=== PATIENT | female | born 1945 | race Caucasian/White ===

== ENCOUNTER 2017-11-22 20:03 | Inpatient (IN) | payer MEDICARE, OTHER ==
[2017-11-22] MEDS ORDERED: SODIUM CHLORIDE 0.9% FLUSH 10 ML FLUSH IV FLUSH (20:45)
[2017-11-22] MEDS: SODIUM CHLOR 0.9% 1000 ML INJ 1,000 ML IV (20:48)
[2017-11-22] MEDS: MORPHINE SULFATE 8 MG/ML INJ IV PUSH (20:48)
[2017-11-22] MEDS: ONDANSETRON ODT 4 MG TAB PO (20:48)
[2017-11-22 21:20] LABS: AUTOMATED NEUTROPHIL # 6.3 TH/MM3 (1.8-7.7); BASOPHIL % 0.4 % (0.0-2.0); EOSINOPHIL % 0.1 % (0.0-4.0); HEMATOCRIT 41.5 % (35.0-46.0); HEMO FLAGS DIFF FINAL; LYMPH % 11.2 % (9.0-44.0); LYMPHOCYTE # 0.8 TH/MM3 (1.0-4.8); MEAN CELL VOLUME 94.2 FL (80.0-100.0); MEAN CORPUSCULAR HEMOGLOBIN 31.9 PG (27.0-34.0); MEAN CORPUSCULAR HGB CONC 33.8 % (32.0-36.0); MEAN PLATELET VOLUME 7.5 FL (7.0-11.0); MONO % 3.1 % (0.0-8.0); MONOCYTE # 0.2 TH/MM3 (0-0.9); NEUT % 85.2 % (16.0-70.0); PLATELET COUNT 234 TH/MM3 (150-450); RED BLOOD COUNT 4.41 MIL/MM3 (4.00-5.30); RED CELL DISTRIBUTION WIDTH 12.9 % (11.6-17.2); WHITE BLOOD COUNT 7.3 TH/MM3 (4.0-11.0)
[2017-11-22 21:44] LABS: ALBUMIN 3.8 GM/DL (3.4-5.0); ANION GAP 10 MEQ/L (5-15); AST (GOT) 22 U/L (15-37); BICARBONATE 24.2 MEQ/L (21.0-32.0); BLOOD UREA NITROGEN 13 MG/DL (7-18); CALCIUM 8.9 MG/DL (8.5-10.1); CHLORIDE 103 MEQ/L (98-107); CREATININE 0.66 MG/DL (0.50-1.00); GLOMERULAR FILTRATION RATE 88 ML/MIN (>89); GLUCOSE,RANDOM 107 MG/DL (74-106); LIPASE 289 U/L (73-393); POTASSIUM 3.8 MEQ/L (3.5-5.1); SODIUM (NA) 137 MEQ/L (136-145)
[2017-11-22 21:45] LABS: ALT (GPT) 20 U/L (10-53)
[2017-11-22 21:47] LABS: ALKALINE PHOSPHATASE 80 U/L (45-117); TOTAL BILIRUBIN ADULT 0.5 MG/DL (0.2-1.0); TOTAL PROTEIN 7.8 GM/DL (6.4-8.2)
[2017-11-22] MEDS: KETOROLAC TROMETHAMINE 30 MG/ML (IVP) VIAL IV PUSH (21:50)
[2017-11-22 22:14] LABS: BILIRUBIN, URINE NEG (NEG); BLOOD, URINE NEG (NEG); GLUCOSE,URINE NEG (NEG); KETONE, URINE 40 mg/dL (NEG); NITRITE,URINE NEG (NEG); PH, URINE 6.5 (5.0-8.5); URINE COLOR LIGHT-YELLOW (YELLW/STRAW); URINE LEUKOCYTE ESTERASE NEG (NEG)
[2017-11-22 22:18] LABS: COMMENT (UR) CULT NOT INDICATED; CULTURE IF INDICATED CULT NOT INDICATED
[2017-11-23] MEDS: KETOROLAC TROMETHAMINE 30 MG/ML (IVP) VIAL IV PUSH (01:57)
[2017-11-23] MEDS ORDERED: MORPHINE SULFATE 4 MG/ML INJ IV PUSH (03:30)
[2017-11-23] MEDS ORDERED: ACETAMINOPHEN/HYDROcodone 325 MG/5 MG TAB PO (03:30)
[2017-11-23] MEDS: LACTATED RINGER'S 1000 ML INJ 1,000 ML IV ×2 (04:04→13:30)
[2017-11-23] MEDS ORDERED: ONDANSETRON ODT 4 MG TAB PO (09:30)
== END 2017-11-23 18:00 | disposition home or self-care (01) | DRG 761 ==
LOC: NEDA 11-23 01:28 → N06A 11-23 02:03 → NEPC 20:03
DX: N83.201 Unspecified ovarian cyst, right side (principal); E78.5 Hyperlipidemia, unspecified; E78.00 Pure hypercholesterolemia, unspecified
CPT/HCPCS: 71045; 74176; 76830; 76856; 80053; 81001; 83690; 85025; 93005; 96361; 96374; 96375; 99291-25

== ENCOUNTER 2017-12-13 06:25 | Inpatient (IN) | payer MEDICARE ==
[~2017-12-13] VITALS: Ht 152.4 cm; Wt 57.5 kg
[~2017-12-13 06:25] MED LIST: ATOR10TA15 PO; ONDA4TAB7 PO; TRAM50 PO
[2017-12-13] MEDS ORDERED: POVIDONE IODINE 5% (ANTISEPSIS KIT) 4 APPLICATIONS EACH NARE PRN (07:00)
[2017-12-13] MEDS ORDERED: METOPROLOL TARTRATE 25 MG TAB PO PRN (07:00)
[2017-12-13] MEDS ORDERED: CHLORHEXIDINE GLUCONATE 2 % 1 PACK (2 CLOTHS) TOPICAL PRN (07:00)
[2017-12-13] MEDS ORDERED: LACTATED RINGER'S 1000 ML IV PRN (07:00)
[2017-12-13] MEDS ORDERED: SODIUM CHLORID 0.9% 500 ML IV PRN (07:00)
[2017-12-13] MEDS ORDERED: SUGAMMADEX SODIUM 200 MG/2 ML VIAL IV PUSH ONE (07:12)
[2017-12-13] MEDS ORDERED: ACETAMINOPHEN 1000 MG/100 ML 100 ML IV ONE (07:13)
[2017-12-13] MEDS ORDERED: ceFAZolin 2 GM/DEX PREMIX 50 ML IV SCH (07:45)
[2017-12-13] MEDS ORDERED: HEPARIN SODIUM - SQ 10,000 UNITS/ML VIAL SQ SCH (07:45)
[2017-12-13] MEDS ORDERED: LIDOCAINE 1%/EPINEPHrine 1:100,000 SOLN 30 ML VIAL ONE (07:58)
[2017-12-13] MEDS ORDERED: LIDOCAINE HCL 1% PF 5 ML SYRINGE OTHER ONE (12:00)
[2017-12-13] MEDS ORDERED: STERILE WATER FOR INJECTION 20 ML VIAL IV ONE (12:00)
[2017-12-13] MEDS ORDERED: ROCURONIUM INJ 50 MG/5 ML SYRINGE IV PUSH ONE (12:00)
[2017-12-13] MEDS ORDERED: ONDANSETRON HCL 4 MG/2 ML VIAL IV PUSH ONE (12:00)
[2017-12-13] MEDS ORDERED: ceFAZolin INJ 1,000 MG VIAL IV ONE ×2 (12:00→14:03)
[2017-12-13] MEDS ORDERED: ePHEDrine/NS 25 MG/5 ML SYRINGE IV ONE (12:00)
[2017-12-13] MEDS ORDERED: DEXAMETHASONE SOD PHOS 4 MG/ML VIAL IV ONE (12:00)
[2017-12-13] MEDS ORDERED: VECURONIUM BROMIDE 20 MG VIAL IV ONE (12:00)
[2017-12-13] MEDS ORDERED: PHENYLEPH/NS 1000 MCG/10 ML SYR IV ONE (12:00)
[2017-12-13] MEDS ORDERED: PROPOFOL 200 MG/20 ML AMP IV ONE (12:00)
[2017-12-13] MEDS ORDERED: metroNIDAZOLE 500 MG INJ 100 ML IV ONE (12:30)
[2017-12-13] MEDS ORDERED: NALOXONE HCL 0.4 MG/ML AMP IV PUSH PRN ×2 (15:00)
[2017-12-13] MEDS ORDERED: Post-op Orders (for Pharmacy) XX ONE (15:00)
[2017-12-13] MEDS ORDERED: diphenhydrAMINE HCL 50 MG/ML VIAL IV PUSH PRN (15:00)
[2017-12-13] MEDS ORDERED: SODIUM CHLORIDE 0.9% FLUSH 10 ML FLUSH IV FLUSH PRN (15:00)
[2017-12-13] MEDS ORDERED: ceFAZolin 1,000 MG/NS 100 ML IV ONE ×2 (15:00)
[2017-12-13] MEDS ORDERED: HYDROmorphone HCL PCA 6 MG/30 ML IV SCH (15:00)
--- NOTE | 2017-12-13 15:03 | PD.OP ---
cc: Soham Cuellar MD; Sarah King MD Operative Report Date of Surgery: Dec 13, 2017 Preoperative Diagnosis: (1) Mass of appendix (2) Ovarian torsion (3) Ovarian mass Postoperative Diagnosis: (1) Mass of appendix (2) Peritoneal metastases (3) Ovarian mass (4) Ovarian torsion Procedure: Robot assisted laparoscopic right colectomy Laparoscopic lysis of adhesions Anesthesia: General Surgeon: Soham Cuellar Entry Level Manager(s): Brook MARTIN Operation and Findings: EBL: 100 cc Indications: This is a 72-year-old female planned for hysterectomy including resection of large adnexal mass with gynecology oncology Dr. King. Proximally one year ago the patient had colonoscopy with apparent pus oozing from the appendiceal orifice. Discussion was had with the patient at that time for possible appendectomy but decision made for observation. There is now concerned that the adnexal mass could be related to her or possibly even arising from the appendix. A repeat CT scan of the abdomen and pelvis this month did show a shortened dilated fluid-filled appendix with some wall thickening. Dr. King requested that I evaluate the patient and consider appendectomy. After discussion with the patient in the office with plan to perform appendectomy at the time of the procedure we discussed possible need for right colectomy depending on findings. Operative findings: The patient had a large torsed right adnexal mass. There is a loop of terminal ileum adherent to the adnexal mass. There is a mass in the cecum and extended into the shortened stump of an appendix. The mass is concerning for malignancy. In addition the patient has peritoneal deposits concerning for metastatic disease. This operation was performed in concert with Dr. King. After Dr. King placed preliminary ports, I laparoscopically performed adhesio lysis of the loop of terminal ileum adherent to the adnexal mass. Dr. King then performed robot-assisted hysterectomy with resection of the torsed adnexal mass. I then completed right colectomy. Procedure in detail: The patient was taken to the operating room and placed in supine position. General endotracheal anesthesia was induced. The abdomen is prepped and draped in usual sterile fashion. The patient was positioned as per Dr. King for planned hysterectomy. He placed initial ports for entry please see his operative note for all details. After entry into the abdomen, we both evaluated anatomy. There is a large adnexal mass on the right apparently a torsed ovary. The appendix is not immediately visible but there is a concerning mass in the cecum and extending into what appears to be the stump of the appendix. There are peritoneal deposits and biopsy is obtained for frozen section. There is a loop of terminal ileum tightly adherent to the mass in the right adnexa. I performed sharp adhesio lysis to free this loop from the adnexa and the retroperitoneum. At this point we opted to proceed with robot- assisted surgery and Dr. King performed hysterectomy and resection of the adnexal mass. At the conclusion of his procedure, I returned and began right colectomy. The terminal ileum cecum and appendix were mobilized robotically using bipolar grasper and scissors with electrocautery. The ureter was identified and avoided. Because of the orientation of the robot ports the pelvis I was unable to complete the dissection robotically. We then changed to laparoscopic approach and placed a 5 mm port in the left midabdomen. The white line of Toldt of the right colon and hepatic flexure were then taken down carefully using the harmonic scalpel. The omentum was from the proximal transverse colon. The colon was carefully from the duodenum posteriorly. There was adequate mobilization of the right colon and proceeded to perform extracorporeal resection and anastomosis. A transverse incision was made in the right upper abdomen from the midline laterally. Dissection carried out through the subcutaneous tissue and rectus sheath with electrocautery and the abdomen entered. The right colon was brought up through the wound and there was no tension. The portion of the terminal ileum which had been involved in the adhesio lysis was included in the specimen. I transected the terminal ileum proximal to this point with a LANI 75 blue load stapler. The proximal transverse colon was transected with a LANI 75 blue load stapler. The mesentery was divided using the harmonic scalpel and electrocautery. The left branches of the middle colic vessel were divided with harmonic scalpel. The ileocolic pedicle was isolated and clamped and tied with 0 Vicryl suture. The specimen was then removed. A [id number] functional end-to-end anastomosis was performed between the terminal ileum and transverse colon. The corners of each portion of the bowel were removed and the stapler placed into the corners. The end enterotomy was closed with a TX 60 blue load. A 3-0 silk suture placed at the end of the staple line. There is no tension or hematoma on the anastomosis. The mesenteric defect closed with running 3-0 silk suture. The anastomosis allowed to return into the abdominal cavity. The fascia was closed with running #1 PDS in 2 layers. The wound was irrigated and skin staplers used to close the skin. Sterile dressing was applied. 12 mm port site was closed with 0 Vicryl suture. Skin closed with subcuticular 4-0 Monocryl and Dermabond. The patient tolerated procedure well was explained taken to PACU in stable condition. Sponge and instrument counts were correct. Soham Cuellar MD Dec 13, 2017 15:03
[2017-12-13] MEDS ORDERED: MIDAZOLAM HCL 2 MG/2 ML VIAL ONE (15:19)
[2017-12-13] MEDS ORDERED: MORPHINE SULFATE 4 MG/ML INJ ONE (15:19)
[2017-12-13] MEDS: KETOROLAC TROMETHAMINE 30 MG/ML (IVP) VIAL IV PUSH SCH ×2 (15:56→21:36)
[2017-12-13] MEDS ORDERED: ACETAMINOPHEN 1000 MG/100 ML 100 ML IV SCH (16:00)
[2017-12-13] MEDS ORDERED: DO NOT ADM ANY ANTICOAGULANT DRUGS PRN (16:00)
[2017-12-13] MEDS: LACTATED RINGER'S 1000 ML INJ 1,000 ML IV SCH (16:07)
[2017-12-13] MEDS: ONDANSETRON ODT 4 MG TAB PO PRN ×2 (16:22→18:11)
[2017-12-13 17:00] VITALS: BP 149/83; PULSE 89; RESP 16; TEMP 99; O2SAT 98
[2017-12-13] MEDS: ACETAMINOPHEN 1000 MG/100 ML 100 ML IV SCH (18:12)
[2017-12-13] MEDS: SODIUM CHLORIDE 0.9% FLUSH 10 ML FLUSH IV FLUSH SCH (21:00)
[2017-12-13] MEDS: ATORVASTATIN 10 MG TAB PO SCH (21:00)
[2017-12-13] MEDS ORDERED: METOCLOPRAMIDE HCL 10 MG/2 ML VIAL IV ONE (21:15)
[2017-12-13 21:36] VITALS: BP 111/65; PULSE 82; RESP 16; TEMP 98.2; O2SAT 93
[2017-12-13] MEDS: PCA - TOTAL MG DILAUDID DELIVERED PER SHIFT OTHER SCH (21:43)
[2017-12-13 22:31] VITALS: O2SAT 94
[2017-12-14] VITALS (8 sets, daily range): BP systolic 94–111; BP diastolic 55–68; PULSE 68–105; RESP 16–18; TEMP 98–98.7; O2SAT 94–99
[2017-12-14] MEDS: ACETAMINOPHEN 1000 MG/100 ML 100 ML IV SCH ×2 (00:09→06:06)
[2017-12-14] MEDS: LACTATED RINGER'S 1000 ML INJ 1,000 ML IV SCH ×3 (01:32→20:08)
[2017-12-14] MEDS: KETOROLAC TROMETHAMINE 30 MG/ML (IVP) VIAL IV PUSH SCH ×4 (04:29→22:02)
[2017-12-14 05:41] LABS: AUTOMATED NEUTROPHIL # 7.9 TH/MM3 (1.8-7.7); BASOPHIL % 0.2 % (0.0-2.0); HEMATOCRIT 32.7 % (35.0-46.0); HEMOGLOBIN 11.2 GM/DL (11.6-15.3); LYMPH % 8.2 % (9.0-44.0); LYMPHOCYTE # 0.8 TH/MM3 (1.0-4.8); MEAN CELL VOLUME 95.5 FL (80.0-100.0); MEAN CORPUSCULAR HEMOGLOBIN 32.7 PG (27.0-34.0); MEAN CORPUSCULAR HGB CONC 34.2 % (32.0-36.0); MEAN PLATELET VOLUME 7.3 FL (7.0-11.0); MONO % 9.5 % (0.0-8.0); MONOCYTE # 0.9 TH/MM3 (0-0.9); NEUT % 82.1 % (16.0-70.0); PLATELET COUNT 225 TH/MM3 (150-450); RED BLOOD COUNT 3.42 MIL/MM3 (4.00-5.30); RED CELL DISTRIBUTION WIDTH 12.3 % (11.6-17.2); WHITE BLOOD COUNT 9.6 TH/MM3 (4.0-11.0)
[2017-12-14 05:58] LABS: BICARBONATE 30.3 MEQ/L (21.0-32.0); CALCIUM 8.2 MG/DL (8.5-10.1); CREATININE 0.51 MG/DL (0.50-1.00)
[2017-12-14] MEDS: PCA - TOTAL MG DILAUDID DELIVERED PER SHIFT OTHER SCH (06:00)
--- NOTE | 2017-12-14 06:42 | HHI.PR ---
Subjective . c/o pain, fatigue, nausea (somewhat improved overnight) no sob, cp Objective . 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 pod#1 doing good in early post-op period findings, preliminary path reviewed, q&a, she understands CPM, increase spirometry, oob to chair today Sarah King MD Dec 14, 2017 06:42
[2017-12-14] MEDS: SODIUM CHLORIDE 0.9% FLUSH 10 ML FLUSH IV FLUSH SCH ×2 (09:03→20:09)
--- NOTE | 2017-12-14 10:12 | HHI.PR ---
Subjective Subjective Notes Had small solid food for breakfast. Sore and tired but no major complaints. Objective Vitals/I&O Vital Signs Date Time Temp Pulse Resp B/P (MAP) Pulse Ox O2 Delivery O2 Flow Rate FiO2 12/14/17 08:02 98.5 80 16 94/55 (68) 94 12/13/17 22:31 Nasal Cannula 2.00 Labs Laboratory Tests Test 12/14/17 04:17 White Blood Count 9.6 Red Blood Count 3.42 Hemoglobin 11.2 Hematocrit 32.7 Mean Corpuscular Volume 95.5 Mean Corpuscular Hemoglobin 32.7 Mean Corpuscular Hemoglobin Concent 34.2 Red Cell Distribution Width 12.3 Platelet Count 225 Mean Platelet Volume 7.3 Neutrophils (%) (Auto) 82.1 Lymphocytes (%) (Auto) 8.2 Monocytes (%) (Auto) 9.5 Eosinophils (%) (Auto) 0.0 Basophils (%) (Auto) 0.2 Neutrophils # (Auto) 7.9 Lymphocytes # (Auto) 0.8 Monocytes # (Auto) 0.9 Eosinophils # (Auto) 0.0 Basophils # (Auto) 0.0 CBC Comment DIFF FINAL Differential Comment Blood Urea Nitrogen 12 Creatinine 0.51 Random Glucose 139 Calcium Level 8.2 Sodium Level 140 Potassium Level 3.9 Chloride Level 103 Carbon Dioxide Level 30.3 Anion Gap 7 Estimat Glomerular Filtration Rate 118 Narrative Exam NAD Abd soft, moderate distention, bandage in place c/d/i A/P Assessment and Plan 72 yo F POD 1 Stable. Some nausea, improving. Pain controlled. D/c WASHERY BOSS. Encourage go slow with diet. OOB to chair. PoloSoham MD Dec 14, 2017 10:12
[2017-12-14] MEDS ORDERED: ACETAMINOPHEN/HYDROcodone 325 MG/5 MG TAB PO PRN (10:15)
[2017-12-14] MEDS ORDERED: MORPHINE SULFATE 4 MG/ML INJ IV PUSH PRN (11:15)
[2017-12-14] MEDS: ENOXAPARIN SODIUM 40 MG/0.4 ML SYRINGE SQ SCH (14:04)
[2017-12-14] MEDS: ATORVASTATIN 10 MG TAB PO SCH (19:42)
[2017-12-14] MEDS: ACETAMINOPHEN/HYDROcodone 325 MG/5 MG TAB PO PRN (20:03)
[2017-12-15] VITALS (7 sets, daily range): BP systolic 105–153; BP diastolic 66–91; PULSE 76–91; RESP 16–18; TEMP 97.8–98.6; O2SAT 93–100
[2017-12-15] MEDS: KETOROLAC TROMETHAMINE 30 MG/ML (IVP) VIAL IV PUSH SCH ×4 (04:17→21:26)
[2017-12-15] MEDS: SODIUM CHLORIDE 0.9% FLUSH 10 ML FLUSH IV FLUSH SCH ×2 (09:00→21:26)
[2017-12-15] MEDS: ACETAMINOPHEN/HYDROcodone 325 MG/5 MG TAB PO PRN ×4 (09:09→23:00)
[2017-12-15] MEDS: ENOXAPARIN SODIUM 40 MG/0.4 ML SYRINGE SQ SCH (13:27)
[2017-12-15] MEDS: LACTATED RINGER'S 1000 ML INJ 1,000 ML IV SCH (16:58)
--- NOTE | 2017-12-15 18:18 | HHI.PR ---
Subjective Subjective Notes She feels well. Has been tolerating regular mainly soft diet. No nausea, + flatus, had small liquid BM. Objective Vitals/I&O Vital Signs Date Time Temp Pulse Resp B/P (MAP) Pulse Ox O2 Delivery O2 Flow Rate FiO2 12/15/17 17:00 98.6 85 18 125/77 (93) 100 12/14/17 21:49 21 12/13/17 22:31 Nasal Cannula 2.00 Narrative Exam NAD Abd soft, mild distention, incision c/d/i A/P Assessment and Plan 72 yo F POD 2 Stable. Jaida diet, + bm. Plan d/c home tomorrow. Path will not be back until later in the week. Soham Cuellar MD Dec 15, 2017 18:18
[2017-12-15] MEDS: ATORVASTATIN 10 MG TAB PO SCH (21:00)
--- NOTE | 2017-12-15 23:49 | MP ---
cc: Sarah King MD,Soham Danielle,Jordan Barber,Byron Sanches MD DATE OF OPERATION: 12/13/2017 PREOPERATIVE DIAGNOSIS: Pelvic mass pain. POSTOPERATIVE DIAGNOSIS: Right ovarian mass with torsion, significant intraperitoneal adhesions. PROCEDURE PERFORMED: Robotic-assisted laparoscopic hysterectomy, bilateral salpingo-oophorectomy (with resection of approximately 14 cm torsed right ovarian mass), extensive lysis of adhesions. SURGEON: Sarah King MD PIECE PRESSER: Robin 1st physician assistant. ANESTHESIA: General endotracheal anesthesia. ESTIMATED BLOOD LOSS: 200 mL INDICATIONS FOR PROCEDURE: This is a 72-year-old female found on exam and imaging to have a complex pelvic mass. She had pelvic pain, was tachycardic. Imaging showed a mass deviated toward the right pelvis, but extended up near the pelvic brim, seemed contiguous with the region of the cecum and appendix such that it could not be clearly delineated separately on imaging. She was counseled regarding these findings. She was seen in consultation from a gynecologic oncology standpoint, as well as seeing Dr. Lauro Cuellar in general surgery, out of concern about possible appendiceal abnormality. She was in favor of moving forward with surgical evaluation and management, was seen again in the preoperative holding area the family members, where the findings were again reviewed. Questions were asked and answered. She expressed good understanding, agreed to move forward with surgery. FINDINGS: On entry into the peritoneal cavity, there were significant adhesions. The colonic mesentery was draped over the pelvic mass. The terminal ileum, cecum and appendix region were all densely adherent to surrounding structures. There were implants on the peritoneal cavity on both the visceral and parietal surfaces. Further dissection allowed confirmation that the mass in the pelvis was coming from the right ovary. It was torsed with a full 720-degree rotation on the gonadal vessels, with hemorrhagic and necrotic appearing changes grossly, with surrounding extensive adhesions circumferentially. The left tube and ovary appeared normal. The uterus itself grossly appeared normal. Frozen section from the peritoneal implant showed mucinous epithelial cells with some atypia, but it could not be delineated with certainty on frozen section analysis if the tissue were benign or malignant. 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 Due to the hemorrhage and necrosis, it was difficult to determine. Also, the definitive diagnosis, there was no overt malignancy on frozen section with final analysis forthcoming. STATEMENT OF COMPLEXITY, MODIFIER: The complexity of this case was significantly increased due to the extensive intraperitoneal adhesions. Significant amount of additional time and effort were needed to lyse adhesions for safe entry into the peritoneal cavity to restore normal anatomy and to accomplish surgical objectives. Modifier should be applied accordingly. DESCRIPTION OF PROCEDURE: She was taken to the operating room, placed in dorsal lithotomy position, after general endotracheal anesthesia was administered. A timeout was undertaken. She was identified by site recognition and hospital ID [email or web address] and the proposed procedure was reviewed and confirmed. She was carefully positioned in padded Keith stirrups. Her arms were padded and secured to the sides. She was further secured to the operating table with egg crate padding and tape in a cross chest, over the shoulder fashion. All sites noted to be properly aligned with no malalignments or pressure points. She was prepped and draped in usual sterile fashion, placed in the high lithotomy position. The cervix was grasped. The uterine cavity was sounded to approximately 8 cm and a standard VCare manipulator was inserted and secured in usual fashion. Woody catheter was placed in the bladder. She was returned to the low lithotomy position. Change of sterile gloves was undertaken. An orogastric tube was in the stomach on suction. With manual elevation of the abdominal wall and direct laparoscopic visualization, 5 mm cannula placed in the left upper quadrant, carbon dioxide gas was insufflated. An 8 mm cannula was placed in the right upper quadrant and then a 12 mm cannula was placed in the midline above the umbilicus, an 8 mm cannula placed in the left upper quadrant. The original 5 mm cannula exchanged for an 8 mm cannula, after some initial lysis of adhesions were carried out to free the abdominal wall from omental adhesions to gain safe entry. Dr. Lauro Cuellar, general surgery, scrubbed in and initiated lysis of adhesion, trying to mobilize the terminal ileum and cecum from dense attachments to help clarify the anatomy and to separate this region of the intestine from the pelvic organs. Please see his op note for description of this portion of the procedure. Biopsies were obtained from the peritoneal nodules. She was placed in Trendelenburg position, 3 Ray-Leonidas sponges were placed around the root of the small bowel mesentery and the robotic system was brought into the operative field and attached in the usual fashion. Monopolar scissors, fenestrated bipolar forceps and ProGrasp manipulators were placed in arms 1, 2 and 3 respectively and I took my place at the surgeon's console. The right round ligament was isolated, cauterized and transected. The anterior and posterior leaf of the broad ligament were opened. The right ureter was identified. The right infundibulopelvic ligament was isolated. Intervening peritoneum was opened and the infundibulopelvic ligament was dissected well above the pelvic brim and confirmed that it was the infundibulopelvic ligament and gonadal vessels that were torsed adjacent to the ovarian hilum. As the gonadal vessels were isolated above the pelvic brim, segments of 0 Vicryl suture were introduced. Instruments 1 and 3 exchanged for needle drivers and the infundibulopelvic ligament with gonadal vessels were tied securely x 3 with 0 Vicryl sutures and then the instrumentation was exchanged for original instrumentation, as the distal portion of the gonadal vessels were further cauterized and transected. The vesicouterine, peritoneum was dissected off the uterus and the uterine vessels were skeletonized as the right uteroovarian ligament were isolated, as the posterior peritoneum was opened to allow isolation of the right uteroovarian ligament, which was completely cauterized. Blunt and sharp dissection were then used circumferentially to further free the mesentery and colon from attachments to this right ovarian mass. Dissection was continued out laterally and posteriorly. There was capsular disruption and the mucinous fluid was drained from the mass. Further dissection was carried out circumferentially until all adhesions had been , such that it only remained attached to the uterus via the right uteroovarian ligament. There is now increased visibility due to lysis of adhesion and drainage of the mass. The right uterine vessels were skeletonized, cauterized and transected after the bladder flap was dissected below the level of the cervix and then the cardinal, paracervical and uterosacral ligaments were isolated, cauterized and transected in a stepwise fashion, thereby freeing the attachments along the right side of the uterus and cervix. Attention was directed to the left side, where the left round ligament was isolated, cauterized and transected. The colon was mobilized from its attachments to the left pelvic sidewall. Retroperitoneal dissection was carried out as the anterior and posterior leafs of the broad ligament were opened. The left ureter was identified. Left infundibulopelvic ligament was isolated. The intervening peritoneum was opened. The infundibulopelvic ligament was isolated to the level of the pelvic brim, where it was cauterized and transected. Additional cul-de-sac adhesions were taken down as the posterior peritoneum was opened along the left side of the uterus and cervix and the left vesicouterine peritoneum was dissected off the lower uterine segment and cervix. The left uterine vessels were skeletonized. The left uterine vessels were cauterized and transected as were the cardinal, paracervical and uterosacral ligaments, thereby freeing the attachments along the left side of the uterus and cervix. Circumferential colpotomy was performed, the cervix from the upper vagina. The specimen was withdrawn transvaginally which included uterus, cervix, tubes and ovaries (including the right ovarian mass) and a Pneumo-Occluder balloon was placed in the vagina to maintain pneumoperitoneum. Instruments 1 and 3 exchanged for needle drivers. As an 0 Vicryl suture was introduced, the vaginal cuff was closed starting at the left corner, full-thickness closure, incorporating the posterior peritoneum and uterosacral ligament, tied via instrument tie. The closure was held on countertraction as a running continuous full thickness closure was carried across the vaginal apex to the contralateral corner, where it was similarly fixed, secured and tied securely. The needle was cut and removed. There was a good margin between the vaginal cuff and the bladder edge. The bladder was inspected, was without defects. There was good peristalsis of ureters bilaterally. There was a plaque of tissue felt possibly tumor against the right pelvic sidewall, which was then removed with sharp dissection and this tissue was placed on a Ray-Leonidas sponge in the right pericolic gutter for later retrieval, to add to the previous biopsies labeled peritoneal implants. The pelvis was thoroughly irrigated. Small bleeders rendered hemostatic with bipolar cautery. All sites were hemostatic and the frozen section came back as showing no definitive malignancy, so it was felt that all gynecologic objectives for this case had been completed. The robotic system, before it was disengaged. Dr. Lauro Cuellar took his place at the surgeon's console and continued his dissection to the extent possible on the robotic console, at which point, the robotic instruments were removed. The robotic system was disengaged from the operative field and the approach was changed to standard laparoscopy. Each of the 3 Ray-Leonidas sponges that had been placed in the peritoneal cavity, they were removed individually through the 12 mm cannula. Each were inspected and noted to be removed in their entirety. Visual inspection confirmed no remaining foreign objects in the peritoneal cavity and counts were correct. From this point forward, the case was turned over to Dr. Lauro Cuellar to address the findings of a cecal and periappendiceal mass and to perform a right hemicolectomy and necessary dissection to accomplish those objectives. Please see his operative note for details of that procedure. MD MARIN Boyd/NEELIMA , 10:33 PM , 11:48 PM BASHIR
[2017-12-16] MEDS: LACTATED RINGER'S 1000 ML INJ 1,000 ML IV SCH (03:08)
[2017-12-16 04:27] VITALS: BP 129/80; PULSE 78; RESP 17; TEMP 98.5; O2SAT 94
[2017-12-16] MEDS: KETOROLAC TROMETHAMINE 30 MG/ML (IVP) VIAL IV PUSH SCH ×4 (04:28→22:28)
[2017-12-16] MEDS ORDERED: HYDR-3516 PO (06:58)
--- NOTE | 2017-12-16 07:48 | MD ---
cc: Sarah King MD, R John MD Cort[place],Byron Cuellar,Soham MALLOY DATE OF DISCHARGE: 12/16/2017 DATE OF ADMISSION: 12/13/2017. DATE OF DISCHARGE: 12/16/2017. DATE OF PROCEDURE: 12/13/2017, robotic-assisted laparoscopic hysterectomy, bilateral salpingo-oophorectomy, extensive lysis of adhesions, right hemicolectomy with reanastomosis. HOSPITAL COURSE: She did well in the postoperative recovery. As of today, postoperative day #3, she is tolerating oral intake, solid and liquid. She has been ambulating unassisted, voiding without difficulty. She has had flatus regularly, with a small bowel movement. No nausea or vomiting. No chest pain, shortness of breath. All in all, she is feeling well and requests to go home. Ins and outs 800/1000-plus. No additional labs this morning. PHYSICAL EXAMINATION: VITAL SIGNS: Afebrile. Vital signs stable. Pulse ranging from 78-91. GENERAL: On physical exam, she looks great. She is up walking around in the room, requesting to go home. LUNGS: Clear to auscultation. CARDIOVASCULAR: Regular rate and rhythm. SKIN: All incisions are clean and dry. GYNECOLOGIC: No bleeding. EXTREMITIES: Nontender. ASSESSMENT: Postoperative day #3, doing well. Findings, activities, restrictions discussed. Final pathology is pending. She had questions that were answered to the best of my capacity, most of which cannot be answered more clearly until we have final pathology. PLAN: Therefore, discharged to home. She is to followup with Dr. Cuellar this as per his request. She can followup with us within 1-2 weeks. At any time, we can get that scheduled. Pathology will be discussed at that time, and further recommendations will be made, and our office number is made available should she have any questions or problems between now and the time of followup. I have a prescription for Percocet if she needs that additionally for pain. She has a prescription preexisting for tramadol, and she is instructed to take one or the other, depending on effectiveness. To resume other prior medications. Activities and restrictions reviewed. Questions were answered. She expressed good understanding and agreed. MD XUAN Boyd , 07:03 AM , 07:47 AM
[2017-12-16 07:56] VITALS: BP 116/65; PULSE 94; RESP 20; TEMP 97.8; O2SAT 96
[2017-12-16] MEDS: ONDANSETRON ODT 4 MG TAB PO PRN (08:04)
[2017-12-16] MEDS: SODIUM CHLORIDE 0.9% FLUSH 10 ML FLUSH IV FLUSH SCH ×2 (08:06→22:28)
[2017-12-16] MEDS: METOCLOPRAMIDE HCL 10 MG/2 ML VIAL IV PRN ×2 (10:39→17:44)
--- NOTE | 2017-12-16 12:45 | HHI.PR ---
Subjective Subjective Notes She feels poorly this morning. Had nausea and feels bloated. Still does have some flatus and black liquid BMs. Objective Vitals/I&O Vital Signs Date Time Temp Pulse Resp B/P (MAP) Pulse Ox O2 Delivery O2 Flow Rate FiO2 12/16/17 07:56 97.8 94 20 116/65 (82) 96 12/14/17 21:49 21 12/13/17 22:31 Nasal Cannula 2.00 Narrative Exam NAD Abd soft, moderate distention, incision c/d/i A/P Assessment and Plan 72 yo F POD 3 Stable. Has post op ileus. Would like for her to stay tonight due to ileus. Go slow on diet, mainly liquids. Restarted IVF. Soham Cuellar MD Dec 16, 2017 12:45
[2017-12-16 12:46] VITALS: BP 106/69; PULSE 103; RESP 20; TEMP 99; O2SAT 95
[2017-12-16] MEDS: D5-1/2 NS + KCL 20 MEQ INJ 1,000 ML IV SCH ×2 (12:50→23:52)
[2017-12-16] MEDS: ENOXAPARIN SODIUM 40 MG/0.4 ML SYRINGE SQ SCH (12:51)
[2017-12-16] MEDS: ACETAMINOPHEN/HYDROcodone 325 MG/5 MG TAB PO PRN ×2 (13:04→17:18)
[2017-12-16 15:08] VITALS: BP 113/74; PULSE 95; RESP 20; TEMP 98.8; O2SAT 95
[2017-12-16 19:33] VITALS: BP 91/59; PULSE 111; RESP 20; TEMP 98; O2SAT 94
[2017-12-16] MEDS: ATORVASTATIN 10 MG TAB PO SCH (21:00)
[2017-12-16 23:56] VITALS: BP 117/79; PULSE 89; RESP 18; TEMP 98.8; O2SAT 94
[2017-12-17] VITALS (7 sets, daily range): BP systolic 101–118; BP diastolic 63–88; PULSE 88–99; RESP 16–18; TEMP 97.8–98.8; O2SAT 94–99
[2017-12-17] MEDS: KETOROLAC TROMETHAMINE 30 MG/ML (IVP) VIAL IV PUSH SCH ×5 (03:20→22:53)
[2017-12-17] MEDS: ONDANSETRON ODT 4 MG TAB PO PRN ×3 (03:25→18:04)
--- NOTE | 2017-12-17 07:22 | HHI.PR ---
Subjective . c/o nausea, emesis, abdominal discomfort Objective . uncomfortable, nad afeb, vss abd mild/moderate distention, hypoactive bs, clean, dry Assessment/Plan . pod#4 discharge put on hold yesterday due to new symptoms c/w ileus cpm, bowel rest, ivf, consider ng tube if symptoms worsen overall management deferred to Dr. Cuellar in this regard pathology pending Sarah King MD Dec 17, 2017 07:22
[2017-12-17] MEDS: SODIUM CHLORIDE 0.9% FLUSH 10 ML FLUSH IV FLUSH SCH ×2 (09:00→20:30)
--- NOTE | 2017-12-17 09:35 | RADRPT ---
EXAM DATE: 12/17/2017 9:15 AM EDT AGE/SEX: 72 years / Female INDICATIONS: Abdominal pain and evaluate for ileus. CLINICAL DATA: This is the patient's initial encounter. Patient reports that signs and symptoms have been present for 3 days and indicates a pain score of 10/10. MEDICAL/SURGICAL HISTORY: None. Appendectomy. Hysterectomy. Colon resection. [place] [facility] [place]22/2017. . FINDINGS: 2 supine frontal views of the abdomen demonstrate gaseous distention of the colon, primarily the tra nsverse colon. There are also stented in dilated small bowel in the left abdomen. No free air is appr eciated. There is no organomegaly. Clips overlie the abdomen. There is levoscoliosis of the lumbar sp ine. 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 Lung bases are clear. CONCLUSION: Abnormal bowel gas pattern with mild distention of the colon, primarily the transverse colon. There i s also distention and mild dilatation of small bowel in the left abdomen and pelvis. Although nonspec ific the pattern could be consistent with ileus. Suggest follow-up to confirm resolution. Electronically signed by: Golden Lilly MD 12/17/2017 9:34 AM EDT
[2017-12-17 09:44] LABS: BASOPHIL % 0.3 % (0.0-2.0); EOSINOPHIL # 0.1 TH/MM3 (0-0.4); EOSINOPHIL % 1.3 % (0.0-4.0); HEMATOCRIT 38.8 % (35.0-46.0); HEMOGLOBIN 13.1 GM/DL (11.6-15.3); LYMPH % 11.1 % (9.0-44.0); LYMPHOCYTE # 0.5 TH/MM3 (1.0-4.8); MEAN CORPUSCULAR HEMOGLOBIN 32.1 PG (27.0-34.0); MEAN CORPUSCULAR HGB CONC 33.8 % (32.0-36.0); MEAN PLATELET VOLUME 6.4 FL (7.0-11.0); MONO % 14.5 % (0.0-8.0); MONOCYTE # 0.6 TH/MM3 (0-0.9); NEUT % 72.8 % (16.0-70.0); PLATELET COUNT 310 TH/MM3 (150-450); RED BLOOD COUNT 4.08 MIL/MM3 (4.00-5.30); RED CELL DISTRIBUTION WIDTH 12.7 % (11.6-17.2); WHITE BLOOD COUNT 4.1 TH/MM3 (4.0-11.0)
[2017-12-17 10:06] LABS: BICARBONATE 23.6 MEQ/L (21.0-32.0); CALCIUM 8.5 MG/DL (8.5-10.1); CREATININE 0.65 MG/DL (0.50-1.00)
[2017-12-17] MEDS: D5-1/2 NS + KCL 20 MEQ INJ 1,000 ML IV SCH ×2 (11:54→22:56)
[2017-12-17] MEDS: ENOXAPARIN SODIUM 40 MG/0.4 ML SYRINGE SQ SCH (14:20)
--- NOTE | 2017-12-17 15:59 | HHI.PR ---
Subjective Subjective Notes Walking in halls. Had emesis x 2 last night but none this am. Only having sips of clears. continues to have "black" liquid stool. Labs ok this am. KUB shows small and large bowel ileus. Objective Vitals/I&O Vital Signs Date Time Temp Pulse Resp B/P (MAP) Pulse Ox O2 Delivery O2 Flow Rate FiO2 12/17/17 15:46 98.2 89 18 105/69 (81) 96 12/16/17 21:37 21 12/13/17 22:31 Nasal Cannula 2.00 Labs Laboratory Tests Test 12/17/17 09:35 White Blood Count 4.1 Red Blood Count 4.08 Hemoglobin 13.1 Hematocrit 38.8 Mean Corpuscular Volume 95.0 Mean Corpuscular Hemoglobin 32.1 Mean Corpuscular Hemoglobin Concent 33.8 Red Cell Distribution Width 12.7 Platelet Count 310 Mean Platelet Volume 6.4 Neutrophils (%) (Auto) 72.8 Lymphocytes (%) (Auto) 11.1 Monocytes (%) (Auto) 14.5 Eosinophils (%) (Auto) 1.3 Basophils (%) (Auto) 0.3 Neutrophils # (Auto) 3.0 Lymphocytes # (Auto) 0.5 Monocytes # (Auto) 0.6 Eosinophils # (Auto) 0.1 Basophils # (Auto) 0.0 CBC Comment DIFF FINAL Differential Comment Blood Urea Nitrogen 16 Creatinine 0.65 Random Glucose 128 Calcium Level 8.5 Sodium Level 138 Potassium Level 3.7 Chloride Level 102 Carbon Dioxide Level 23.6 Anion Gap 12 Estimat Glomerular Filtration Rate 89 Narrative Exam NAD Abd soft, moderate distention, incision c/d/i A/P Assessment and Plan 72 yo F POD 4 Stable. Post op ileus persists. Sips of clears only. NGT if recurrent emesis. Soham Cuellar MD Dec 17, 2017 15:59
[2017-12-17] MEDS: ATORVASTATIN 10 MG TAB PO SCH (21:00)
[2017-12-17] MEDS: METOCLOPRAMIDE HCL 10 MG/2 ML VIAL IV PRN (22:56)
[2017-12-18] MEDS: KETOROLAC TROMETHAMINE 30 MG/ML (IVP) VIAL IV PUSH SCH ×2 (03:28→10:15)
[2017-12-18 03:33] VITALS: BP 121/77; PULSE 94; RESP 16; TEMP 98.5; O2SAT 94
--- NOTE | 2017-12-18 07:52 | PD.ONC.PN ---
Subjective Subjective Remarks POD # 5 patient without any further N/V is OOB ambulating still painful cramping and feels weak taking in sips and chips Objective Data Date Time Temp Pulse Resp B/P (MAP) Pulse Ox O2 Delivery O2 Flow Rate FiO2 12/18/17 03:33 98.5 94 16 121/77 (92) 94 12/17/17 23:11 98.7 96 16 101/63 (76) 94 12/17/17 20:31 97.9 98 18 110/67 (81) 96 12/17/17 15:46 98.2 89 18 105/69 (81) 96 12/17/17 14:49 98 12/17/17 11:49 97.9 92 18 110/69 (83) 98 12/17/17 08:32 97.8 99 16 118/88 (98) 99 12/18/17 12/18/17 12/18/17 07:00 15:00 23:00 Intake Total 230 ml Output Total 450 ml Balance -220 ml Result Diagram: 12/17/17 0935 12/17/17 0935 Laboratory Results Laboratory Tests Test 12/17/17 09:35 White Blood Count 4.1 TH/MM3 Red Blood Count 4.08 MIL/MM3 Hemoglobin 13.1 GM/DL Hematocrit 38.8 % Mean Corpuscular Volume 95.0 FL Mean Corpuscular Hemoglobin 32.1 PG Mean Corpuscular Hemoglobin Concent 33.8 % Red Cell Distribution Width 12.7 % Platelet Count 310 TH/MM3 Mean Platelet Volume 6.4 FL Neutrophils (%) (Auto) 72.8 % Lymphocytes (%) (Auto) 11.1 % Monocytes (%) (Auto) 14.5 % Eosinophils (%) (Auto) 1.3 % Basophils (%) (Auto) 0.3 % Neutrophils # (Auto) 3.0 TH/MM3 Lymphocytes # (Auto) 0.5 TH/MM3 Monocytes # (Auto) 0.6 TH/MM3 Eosinophils # (Auto) 0.1 TH/MM3 Basophils # (Auto) 0.0 TH/MM3 CBC Comment DIFF FINAL Differential Comment Blood Urea Nitrogen 16 MG/DL Creatinine 0.65 MG/DL Random Glucose 128 MG/DL Calcium Level 8.5 MG/DL Sodium Level 138 MEQ/L Potassium Level 3.7 MEQ/L Chloride Level 102 MEQ/L Carbon Dioxide Level 23.6 MEQ/L Anion Gap 12 MEQ/L Estimat Glomerular Filtration Rate 89 ML/MIN Administered Medications Medications (Trade) Dose Ordered Sig/Jorge Route PRN Reason Start Time Stop Time Status Last Admin Dose Admin Sodium Chloride (NS Flush) 2 ml BID IV FLUSH 12/13/17 21:00 12/17/17 20:30 Ondansetron HCl (Zofran Odt) 4 mg Q6H PRN PO NAUSEA OR VOMITING 12/13/17 15:15 12/17/17 18:04 Ketorolac Tromethamine (Toradol Inj) 15 mg Q6H IV PUSH 12/13/17 16:00 12/18/17 15:59 12/18/17 03:28 Enoxaparin Sodium (Lovenox Inj) 40 mg Q24H SQ 12/14/17 13:46 12/17/17 14:20 Metoclopramide HCl (Reglan Inj) 10 mg Q6H PRN IV NAUSEA if Zofran ineffective 12/13/17 21:15 12/17/17 22:56 Acetaminophen/ Hydrocodone Bitart ([place] 5-325 Mg) 1 tab Q4H PRN PO PAIN SCALE 1 TO 5 12/14/17 10:15 12/16/17 17:18 Potassium Chloride/Dextrose/ Sod Cl 1,000 ml @ 84 mls/hr [id number] IV 12/16/17 12:15 12/17/17 22:56 Objective Remarks GENERAL: Well-nourished, well-developed patient. SKIN: Warm and dry. HEAD: Normocephalic. EYES: No scleral icterus. No injection or drainage. CARDIOVASCULAR: Regular rate and rhythm without murmurs. RESPIRATORY: Breath sounds equal bilaterally. No accessory muscle use. GASTROINTESTINAL: Abdomen distended, + BS X 4 EXTREMITIES: No cyanosis, or edema. MUSCULOSKELETAL: Adequate muscle tone. NEUROLOGICAL: No obvious focal deficit. Awake, alert, and oriented x3. PSYCHIATRIC: Appropriate mood and affect; insight and judgment normal. Assessment/Plan Problem List: (1) Post-operative state ICD Codes: Z98.890 - Other specified postprocedural states Status: Acute Plan: post op ileus: improved without further nausea or vomiting differ to Dr. Cuellar for management continue ambulation IVF pain control supportive care Stephanie Alfaro Dec 18, 2017 07:52
[2017-12-18] MEDS: METOCLOPRAMIDE HCL 10 MG/2 ML VIAL IV PRN ×2 (08:47→23:15)
[2017-12-18] MEDS: SODIUM CHLORIDE 0.9% FLUSH 10 ML FLUSH IV FLUSH SCH ×2 (08:47→20:50)
[2017-12-18 09:00] VITALS: BP 103/71; PULSE 107; RESP 16; TEMP 97.6; O2SAT 96
[2017-12-18] MEDS: D5-1/2 NS + KCL 20 MEQ INJ 1,000 ML IV SCH ×2 (10:14→20:53)
[2017-12-18 12:14] VITALS: BP 127/77; PULSE 108; RESP 16; TEMP 97.5; O2SAT 97
[2017-12-18] MEDS: ENOXAPARIN SODIUM 40 MG/0.4 ML SYRINGE SQ SCH (14:35)
[2017-12-18 16:24] VITALS: BP 138/84; PULSE 93; RESP 16; TEMP 98.1; O2SAT 98
--- NOTE | 2017-12-18 18:34 | HHI.PR ---
Subjective Subjective Notes Feels better. Persistent liquid stools. Tolerating ice chips. Objective Vitals/I&O Vital Signs Date Time Temp Pulse Resp B/P (MAP) Pulse Ox O2 Delivery O2 Flow Rate FiO2 12/18/17 16:24 98.1 93 16 138/84 (102) 98 12/16/17 21:37 21 Narrative Exam NAD Abd soft, moderate distention, incision c/d/i A/P Assessment and Plan 72 yo F POD 4 Stable. Post op ileus improving. Clears. 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 Discussed with Dr. Choi who is consulted. Discussed path in detail with the patient and her son and daughter. Soham Cuellar MD Dec 18, 2017 18:34
[2017-12-18 20:00] VITALS: BP 125/70; PULSE 97; RESP 16; RESP 17; TEMP 98.7; O2SAT 97
[2017-12-18] MEDS: ATORVASTATIN 10 MG TAB PO SCH (20:47)
[2017-12-18] MEDS: ONDANSETRON ODT 4 MG TAB PO PRN (20:50)
[2017-12-19] VITALS: BP 111/68; PULSE 95; RESP 16; TEMP 98.9; O2SAT 95
[2017-12-19 04:00] VITALS: BP 129/78; PULSE 78; RESP 14; TEMP 99; O2SAT 97
--- NOTE | 2017-12-19 05:05 | RADRPT ---
EXAM DATE: 12/19/2017 5:01 AM EDT AGE/SEX: 72 years / Female INDICATIONS: Abdominal distention. CLINICAL DATA: This is the patient's subsequent encounter. Patient reports that signs and symptoms h ave been present for 4 - 6 days and indicates a pain score of 8/10. MEDICAL/SURGICAL HISTORY: None. Appendectomy. Hysterectomy. Colon resection. [place] [facility] [place]. . FINDINGS: There is gaseous distention of bowel, overall slightly improved from December 17. No free air. Skin stapl es project over midabdomen. CONCLUSION: /Improvement in gaseous distention of bowel over the last 2 days. Electronically signed by: Trevon Sánchez MD 12/19/2017 5:03 AM EDT
[2017-12-19 07:15] VITALS: BP 125/70; PULSE 96; RESP 18; TEMP 97.5; O2SAT 98
--- NOTE | 2017-12-19 07:48 | HHI.PR ---
Subjective . c/o reflux, sitting oob in chair no nausea/vomiting (+) flatus, multiple liquid bms Objective . afeb, vss a&o x3, nad abdomen mildly distended, increased bsx4, softer, non-tender, incisions clean Assessment/Plan . pod#6 ileus improving discussion of pathology in f/u to Dr. Cuellar's discussion medical oncology consulted, she inquires about consult at [facility] Sarah King MD Dec 19, 2017 07:48
[2017-12-19] MEDS: SODIUM CHLORIDE 0.9% FLUSH 10 ML FLUSH IV FLUSH SCH ×2 (08:47→20:44)
[2017-12-19 11:00] VITALS: BP 129/80; PULSE 88; RESP 16; TEMP 98.6; O2SAT 98
--- NOTE | 2017-12-19 11:29 | HHI.PR ---
Subjective Subjective Notes No pain. C/o mild reflux, no nausea. Having liquid stool almost hourly. Objective Vitals/I&O Vital Signs Date Time Temp Pulse Resp B/P (MAP) Pulse Ox O2 Delivery O2 Flow Rate FiO2 12/19/17 07:15 97.5 96 18 125/70 (88) 98 12/16/17 21:37 21 Narrative Exam NAD Abd soft, moderate distention, incision c/d/i A/P Assessment and Plan 72 yo F POD 5 Stable. Post op ileus continues to improve. Soft diet. When ileus fully resolves will plan to start imodium for diarrhea. Zantac, tums. Ok to shower. May be ready for discharge tomorrow. Soham Cuellar MD Dec 19, 2017 11:29
[2017-12-19] MEDS ORDERED: SODIUM CHLORID 0.9% 500 ML INJ 500 ML IV ONE (11:30)
[2017-12-19] MEDS ORDERED: CALCIUM CARBONATE 500 MG CHEWABLE TAB CHEW PRN (11:30)
[2017-12-19] MEDS: D5-1/2 NS + KCL 20 MEQ INJ 1,000 ML IV SCH (11:45)
[2017-12-19] MEDS: FAMOTIDINE 20 MG TAB PO SCH ×2 (11:45→20:31)
[2017-12-19] MEDS: ENOXAPARIN SODIUM 40 MG/0.4 ML SYRINGE SQ SCH (13:46)
[2017-12-19 15:00] VITALS: BP 109/66; PULSE 79; RESP 18; TEMP 98.4; O2SAT 95
[2017-12-19 20:00] VITALS: BP 111/83; PULSE 94; RESP 18; TEMP 98.3; O2SAT 93
[2017-12-19] MEDS: ATORVASTATIN 10 MG TAB PO SCH (20:15)
[2017-12-19] MEDS ORDERED: ALUMINUM/MAGNESIUM/SIMETH 30 ML CUP PO PRN (21:15)
[2017-12-19] MEDS: ONDANSETRON ODT 4 MG TAB PO PRN (21:27)
[2017-12-19] MEDS: SIMETHICONE 80 MG CHEWABLE TAB PO PRN (22:40)
[2017-12-20] VITALS: BP 119/67; PULSE 87; RESP 14; TEMP 98.5; O2SAT 96
[2017-12-20] MEDS: D5-1/2 NS + KCL 20 MEQ INJ 1,000 ML IV SCH ×3 (02:55→15:42)
[2017-12-20] MEDS: SIMETHICONE 80 MG CHEWABLE TAB PO PRN ×3 (03:15→15:50)
[2017-12-20 04:00] VITALS: BP 131/68; PULSE 87; RESP 15; TEMP 98; O2SAT 98
--- NOTE | 2017-12-20 08:13 | PD.ONC.PN ---
Subjective Subjective Remarks POD # 7 patient is sitting up in chair, states she had a lot of very painful gas last night. GasX helped some. she has been OOB to ambulate. + liquid stool, she states is clear states Maalox she was unable to swallow +small amount of flatus Objective Data Date Time Temp Pulse Resp B/P (MAP) Pulse Ox O2 Delivery O2 Flow Rate FiO2 12/20/17 04:00 98.0 87 15 131/68 (89) 98 12/20/17 00:00 98.5 87 14 119/67 (84) 96 12/19/17 20:00 98.3 94 18 111/83 (92) 93 12/19/17 15:00 98.4 79 18 109/66 (80) 95 12/19/17 11:00 98.6 88 16 129/80 (96) 98 12/20/17 12/20/17 12/20/17 07:00 15:00 23:00 Output Total 300 ml Balance -300 ml Result Diagram: 12/17/17 0935 12/17/17 0935 Administered Medications Medications (Trade) Dose Ordered Sig/Jorge Route PRN Reason Start Time Stop Time Status Last Admin Dose Admin Sodium Chloride (NS Flush) 2 ml BID IV FLUSH 12/13/17 21:00 12/19/17 08:47 Ondansetron HCl (Zofran Odt) 4 mg Q6H PRN PO NAUSEA OR VOMITING 12/13/17 15:15 12/19/17 21:27 Enoxaparin Sodium (Lovenox Inj) 40 mg Q24H SQ 12/14/17 13:46 12/19/17 13:46 Acetaminophen/ Hydrocodone Bitart ([place] 5-325 Mg) 1 tab Q4H PRN PO PAIN SCALE 1 TO 5 12/14/17 10:15 12/16/17 17:18 Potassium Chloride/Dextrose/ Sod Cl 1,000 ml @ 84 mls/hr [id number] IV 12/16/17 12:15 12/20/17 02:55 Famotidine (Pepcid) 20 mg BID PO 12/19/17 11:45 12/19/17 20:31 Calcium Carbonate (Tums Chew) 500 mg Q2H PRN CHEW REFLUX 12/19/17 11:30 12/19/17 17:32 Al Hydrox/Mg Hydrox/Simethicone (Mag-Al Plus Susp Liq) 30 ml Q6H PRN PO INDIGESTION 12/19/17 21:15 12/19/17 21:19 Simethicone (Mylicon Chew) 80 mg Q6H PRN PO GAS PAIN 12/19/17 21:15 12/20/17 03:15 Objective Remarks GENERAL: Well-nourished, well-developed patient. SKIN: Warm and dry. HEAD: Normocephalic. EYES: No scleral icterus. No injection or drainage. NECK: Supple CARDIOVASCULAR: Regular rate and rhythm without murmurs. RESPIRATORY: Breath sounds equal bilaterally. No accessory muscle use. GASTROINTESTINAL: Abdomen soft, non-tender, + BS X 4 MUSCULOSKELETAL: Adequate muscle tone. NEUROLOGICAL: No obvious focal deficit. Awake, alert, and oriented x3. PSYCHIATRIC: Appropriate mood and affect; insight and judgment normal. Assessment/Plan Problem List: (1) Post-operative state ICD Codes: Z98.890 - Other specified postprocedural states Status: Acute Plan: post op ileus: improved without further nausea or vomiting differ to Dr. Cuellar for management continue ambulation IVF pain control supportive care 12/20/17: POD #7 abdominal X ray, improved added scheduled Reglan continue GasX encouraged PO intake and continue ambulation Dr. Fernando KOWALSKI with discharge once OK'd with general surgery hem/onc consulted for primary appendix cancer. Stephanie Alfaro Dec 20, 2017 08:13
[2017-12-20] MEDS: FAMOTIDINE 20 MG TAB PO SCH ×2 (08:19→21:59)
[2017-12-20] MEDS: METOCLOPRAMIDE HCL 10 MG/2 ML VIAL IV PUSH SCH ×3 (08:20→23:41)
[2017-12-20] MEDS: SODIUM CHLORIDE 0.9% FLUSH 10 ML FLUSH IV FLUSH SCH ×2 (08:23→21:42)
[2017-12-20 08:42] VITALS: BP 101/60; PULSE 78; RESP 18; TEMP 98.4; O2SAT 98
--- NOTE | 2017-12-20 08:56 | MB ---
cc: Ngozi Choi MD DATE: 12/20/2017 CHIEF COMPLAINT: Metastatic appendiceal adenocarcinoma. HISTORY OF PRESENT ILLNESS: Ms. Moya is a 72-year-old lady who follows with Dr. King in clinic. She is in very good state of health aside from a history of hyperlipidemia. She was hospitalized on 11/23/2017 with new right-sided abdominal discomfort that started around 10:00 a.m. She had an ultrasound which revealed an enlarging right ovary containing multiple complex cystic structures. The largest measured up to 6.[address] scan of the abdomen and pelvis again revealed a large complex cystic lesion in the pelvis, corresponding to complex cystic right adnexal mass seen on ultrasound two 1 cm low attenuation in the liver, which are nonspecific and most likely recommending cyst and an unremarkable bowel gas pattern. She has been seen by gynecology service and Dr. King also consulted on her. Dr. King raised the possibility of an appendiceal mass. The patient reports that about a year ago, she underwent a colonoscopy under the direction of Dr. Buchanan. Dr. Buchanan found some concerning purulent fluid coming from the appendix. She discussed appendectomy with a surgeon at that time and the decision was made not to move forward with appendectomy. She subsequently underwent an operation under the direction of both Dr. Cuellar and Dr. King with pathology from the surgery showing biopsy of the peritoneum showing features consistent with a mucinous adenocarcinoma. Uterus, cervix, bilateral ovaries and fallopian tubes; hysterectomy and bilateral salpingo-oophorectomy. Endometrium shows cystic endometrial atrophy. Myometrium small intraluminal leiomyoma. Cervix severe acute and chronic end of cervicitis. Right ovary is largely denuded mucinous cystadenoma 10.5 cm in size with features of torsion. Left ovary surface epithelial inclusion cyst. Fallopian tubes no significant pathology. Again, a biopsy of the peritoneum with mucinous adenocarcinoma and fibrous tissue. 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 Metastatic mucinous adenocarcinoma to 3 of 14 pericolonic lymph nodes. Grade is well differentiated. Primary tumor is pT4a, regional lymph nodes is pT1b and she does have distant metastasis pM1b. She is currently in the hospital and she has ileus after her surgery. She is not passing gas. She is able to eat small amounts of food, and she is having some abdominal pain. PAST MEDICAL HISTORY: 1. High cholesterol. 2. Osteopenia. 3. Tendinitis in right shoulder. PAST SURGICAL HISTORY: 1. Cataract removal. 2. Colonoscopy. FAMILY HISTORY: No known family history of GI malignancy or gynecologic malignancy. SOCIAL HISTORY: She is . She lost her about 2 years ago. She denies tobacco use. She reports occasional social ethyl alcohol use. ALLERGIES: NO KNOWN DRUG ALLERGIES. REVIEW OF SYSTEMS: As above in the HPI and all other review of systems is negative. PHYSICAL EXAMINATION: GENERAL: Alert, well-developed, well-nourished lady, in no distress. HEENT: Head normocephalic, atraumatic. Eyes with no scleral icterus. NECK: Supple with no palpable lymphadenopathy. CARDIOVASCULAR: Regular rate and rhythm. LUNGS: Clear to auscultation bilaterally. ABDOMEN: Tenderness to palpation. EXTREMITIES: With no edema. NEUROLOGIC: Grossly nonfocal. PSYCHIATRIC: Appropriate mood and affect. ASSESSMENT AND PLAN: Well well-differentiated mucinous adenocarcinoma of the appendix with marry involvement and metastatic disease to the peritoneum. She is s/p right colectomy. Optimal treatment of patients with intraperitoneal dissemination of appendiceal adenocarcinoma is unclear. Options include aggressive surgical cytoreduction and HIPEC versus systemic chemotherapy with 5- FU based regimen. Above was discussed with the patient. She is in the process of obtaining a second opinion at [facility] in [place], and wishes to delay her final decision until this consultation. Inpatient oncology team will continue to follow peripherally. MD MARIBEL Ann/BRAXTON , 07:34 AM , 08:55 AM BASHIR
--- NOTE | 2017-12-20 09:40 | HHI.PR ---
Subjective Subjective Notes C/o reflux and "gas" pain. Not tolerating much orally. Less diarrhea. Some flatus. Objective Vitals/I&O Vital Signs Date Time Temp Pulse Resp B/P (MAP) Pulse Ox O2 Delivery O2 Flow Rate FiO2 12/20/17 08:42 98.4 78 18 101/60 (74) 98 12/20/17 08:42 Room Air 12/16/17 21:37 21 Narrative Exam NAD Abd soft, moderate distention, incision c/d/i A/P Assessment and Plan 72 yo F POD 6 Stable. Worsening ileus and reflux. Diet as tolerated. Zantac, tums. Add protonix. Check labs. Dr. Faustin will see over the weekend. Soham Cuellar MD Dec 20, 2017 09:40
[2017-12-20 11:18] LABS: AUTOMATED NEUTROPHIL # 5.3 TH/MM3 (1.8-7.7); BASOPHIL % 0.3 % (0.0-2.0); EOSINOPHIL % 0.6 % (0.0-4.0); HEMATOCRIT 32.8 % (35.0-46.0); HEMOGLOBIN 11.3 GM/DL (11.6-15.3); LYMPH % 8.8 % (9.0-44.0); LYMPHOCYTE # 0.6 TH/MM3 (1.0-4.8); MEAN CELL VOLUME 93.3 FL (80.0-100.0); MEAN CORPUSCULAR HEMOGLOBIN 32.1 PG (27.0-34.0); MEAN CORPUSCULAR HGB CONC 34.5 % (32.0-36.0); MEAN PLATELET VOLUME 6.6 FL (7.0-11.0); MONO % 15.5 % (0.0-8.0); MONOCYTE # 1.1 TH/MM3 (0-0.9); NEUT % 74.8 % (16.0-70.0); PLATELET COUNT 369 TH/MM3 (150-450); RED BLOOD COUNT 3.51 MIL/MM3 (4.00-5.30); RED CELL DISTRIBUTION WIDTH 12.3 % (11.6-17.2); WHITE BLOOD COUNT 7.1 TH/MM3 (4.0-11.0)
[2017-12-20 11:40] LABS: CREATININE 0.42 MG/DL (0.50-1.00)
[2017-12-20] MEDS: PANTOPRAZOLE SODIUM 40 MG VIAL IV PUSH SCH ×2 (12:06→21:59)
[2017-12-20 12:10] VITALS: BP 101/65; PULSE 81; RESP 18; TEMP 99.4; O2SAT 94
[2017-12-20] MEDS: ONDANSETRON ODT 4 MG TAB PO PRN ×2 (14:30→21:58)
[2017-12-20] MEDS: ENOXAPARIN SODIUM 40 MG/0.4 ML SYRINGE SQ SCH (14:31)
[2017-12-20 16:00] VITALS: BP 113/49; PULSE 91; RESP 18; TEMP 99.1; O2SAT 97
[2017-12-20 21:40] VITALS: BP 114/64; PULSE 86; RESP 16; TEMP 99; O2SAT 96
[2017-12-20] MEDS: ATORVASTATIN 10 MG TAB PO SCH (21:42)
[2017-12-20] MEDS: POTASSIUM CHLORIDE 20 MEQ CONTROLLED RELEASE TAB PO SCH (21:57)
[2017-12-21] VITALS: BP 120/72; PULSE 89; RESP 16; TEMP 98.5; O2SAT 98
[2017-12-21] MEDS: D5-1/2 NS + KCL 20 MEQ INJ 1,000 ML IV SCH ×2 (03:49→17:40)
[2017-12-21 03:50] VITALS: BP 99/59; PULSE 81; RESP 16; TEMP 98.9; O2SAT 97
[2017-12-21 08:00] VITALS: BP 92/57; PULSE 69; RESP 18; TEMP 98.3; O2SAT 99
[2017-12-21] MEDS: POTASSIUM CHLORIDE 20 MEQ CONTROLLED RELEASE TAB PO SCH (09:00)
[2017-12-21] MEDS: PANTOPRAZOLE SODIUM 40 MG VIAL IV PUSH SCH ×2 (10:23→21:05)
[2017-12-21] MEDS: SODIUM CHLORIDE 0.9% FLUSH 10 ML FLUSH IV FLUSH SCH ×2 (10:24→21:05)
[2017-12-21] MEDS: METOCLOPRAMIDE HCL 10 MG/2 ML VIAL IV PUSH SCH ×2 (10:24→17:21)
[2017-12-21] MEDS: FAMOTIDINE 20 MG TAB PO SCH ×2 (10:25→21:05)
--- NOTE | 2017-12-21 12:49 | HHI.PR ---
Subjective Subjective Notes The patient is feeling better today than yesterday. She began passing flatus last night and has tolerated a soft diet this morning with decreasing pain and increasing bowel activity. She still having occasional loose bowel movements. She has no other complaints. Objective Vitals/I&O Vital Signs Date Time Temp Pulse Resp B/P (MAP) Pulse Ox O2 Delivery O2 Flow Rate FiO2 12/21/17 08:00 98.3 69 18 92/57 (69) 99 12/21/17 08:00 Room Air Cardiovascular: Regular Lungs: Clear Abdomen: Non-distended, Post-op tenderness Extremities: No edema, Perfused, SCD's on A/P Assessment and Plan Impression: Status post robotic hysterectomy and oophorectomy, as well as robotic right hemicolectomy with a diagnosis of mucinous adenocarcinoma of the appendix. She is stable and gradually improving with normalizing bowel function. She has no complications to this point. Plan: The patient be advanced to a regular diet and I have encouraged her to increase her activity again. J Carlos Faustin MD Dec 21, 2017 12:49
[2017-12-21 12:56] VITALS: BP 124/77; PULSE 79; RESP 18; TEMP 97.8; O2SAT 99
[2017-12-21] MEDS: ENOXAPARIN SODIUM 40 MG/0.4 ML SYRINGE SQ SCH (17:20)
[2017-12-21 17:41] VITALS: BP 119/62; PULSE 80; RESP 18; TEMP 99; O2SAT 98
[2017-12-21] MEDS ORDERED: POTASSIUM CHLORIDE 10 MEQ CONTROLLED RELEASE TAB PO ONE (19:15)
[2017-12-21 21:01] VITALS: BP 132/72; PULSE 87; RESP 18; TEMP 98.6; O2SAT 100
[2017-12-21] MEDS: ATORVASTATIN 10 MG TAB PO SCH (21:05)
[2017-12-22] MEDS: METOCLOPRAMIDE HCL 10 MG/2 ML VIAL IV PUSH SCH ×3 (00:47→16:00)
[2017-12-22 00:55] VITALS: BP 98/56; PULSE 88; RESP 16; TEMP 98.5; O2SAT 95
[2017-12-22] MEDS: D5-1/2 NS + KCL 20 MEQ INJ 1,000 ML IV SCH ×2 (04:54→23:10)
[2017-12-22 04:59] VITALS: BP 99/58; PULSE 80; RESP 16; O2SAT 96
[2017-12-22 07:10] LABS: BICARBONATE 26.6 MEQ/L (21.0-32.0); CALCIUM 7.9 MG/DL (8.5-10.1); CREATININE 0.45 MG/DL (0.50-1.00)
[2017-12-22 07:52] VITALS: BP 102/62; PULSE 80; RESP 16; TEMP 97.8; O2SAT 97
[2017-12-22] MEDS: FAMOTIDINE 20 MG TAB PO SCH ×2 (08:58→21:25)
[2017-12-22] MEDS: PANTOPRAZOLE SODIUM 40 MG VIAL IV PUSH SCH (08:59)
[2017-12-22] MEDS: SODIUM CHLORIDE 0.9% FLUSH 10 ML FLUSH IV FLUSH SCH ×2 (08:59→21:26)
[2017-12-22 13:50] VITALS: BP 94/73; PULSE 90; RESP 16; TEMP 97.8; O2SAT 99
[2017-12-22] MEDS: ENOXAPARIN SODIUM 40 MG/0.4 ML SYRINGE SQ SCH (14:35)
[2017-12-22 16:04] VITALS: BP 114/64; PULSE 90; RESP 16; TEMP 98.8; O2SAT 99
--- NOTE | 2017-12-22 17:33 | HHI.PR ---
Subjective Subjective Notes She continues to feel better day by day. She is tolerating a regular diet and having improved bowel movements. She still has poorly formed stool but no diarrhea. Her pain is under control and her activity has increased with no difficulty. She has no other specific complaints. Objective Vitals/I&O Vital Signs Date Time Temp Pulse Resp B/P (MAP) Pulse Ox O2 Delivery O2 Flow Rate FiO2 12/22/17 16:04 98.8 90 16 114/64 (81) 99 12/22/17 08:52 Room Air Labs Laboratory Tests Test 12/22/17 06:10 Blood Urea Nitrogen 3 Creatinine 0.45 Random Glucose 91 Calcium Level 7.9 Sodium Level 141 Potassium Level 3.7 Chloride Level 107 Carbon Dioxide Level 26.6 Anion Gap 7 Estimat Glomerular Filtration Rate 137 Cardiovascular: Regular Lungs: Clear Abdomen: Non-distended, Post-op tenderness Extremities: No edema A/P Assessment and Plan Impression: Status post robotic hysterectomy and oophorectomy for cyst adenoma of the right ovary with torsion, as well as robotic right hemicolectomy with a diagnosis of mucinous adenocarcinoma of the appendix. She is stable and gradually improving with normalizing bowel function. She has no complications to this point. Plan: Laboratory today showed a normal potassium of 3.7. Her IV fluid will be discontinued and hopefully she should be able to go home tomorrow. J Carlos Faustin MD Dec 22, 2017 17:33
[2017-12-22] MEDS: ATORVASTATIN 10 MG TAB PO SCH (21:00)
[2017-12-22] MEDS: PANTOPRAZOLE SOD 40 MG DELAYED RELEASE TAB PO SCH (21:25)
[2017-12-22 21:33] VITALS: BP 123/79; PULSE 91; RESP 16; TEMP 98; O2SAT 100
[2017-12-22] MEDS: ONDANSETRON ODT 4 MG TAB PO PRN (23:27)
[2017-12-23 00:20] VITALS: BP 136/90; PULSE 98; RESP 16; TEMP 98.8; O2SAT 98
[2017-12-23 04:00] VITALS: BP 103/66; PULSE 90; RESP 16; TEMP 98.3; O2SAT 94
[2017-12-23] MEDS: SIMETHICONE 80 MG CHEWABLE TAB PO PRN (05:46)
[2017-12-23 07:28] VITALS: BP 109/69; PULSE 83; RESP 16; TEMP 98.3; O2SAT 96
[2017-12-23] MEDS ORDERED: LOPE-1 PO (08:40)
[2017-12-23] MEDS: FAMOTIDINE 20 MG TAB PO SCH (08:46)
[2017-12-23] MEDS: PANTOPRAZOLE SOD 40 MG DELAYED RELEASE TAB PO SCH (08:46)
[2017-12-23] MEDS: SODIUM CHLORIDE 0.9% FLUSH 10 ML FLUSH IV FLUSH SCH (08:47)
== END 2017-12-23 11:00 | disposition home or self-care (01) | DRG 330 ==
LOC: HSDC 06:25 → HCIN 15:00
PROVIDERS: ADMIT Surgery; ATTEND Surgery
PROC: 0UT9FZZ Resection of Uterus, Via Natural or Artificial Opening With Percutaneous Endoscopic Assistance (ICD-10-PCS; 2017-12-13)
PROC: 0DNH4ZZ Release Cecum, Percutaneous Endoscopic Approach (ICD-10-PCS; 2017-12-13)
PROC: 0DTJ4ZZ Resection of Appendix, Percutaneous Endoscopic Approach (ICD-10-PCS; 2017-12-13)
PROC: 0UT2FZZ Resection of Bilateral Ovaries, Via Natural or Artificial Opening With Percutaneous Endoscopic Assistance (ICD-10-PCS; 2017-12-13)
PROC: 0UT7FZZ Resection of Bilateral Fallopian Tubes, Via Natural or Artificial Opening With Percutaneous Endoscopic Assistance (ICD-10-PCS; 2017-12-13)
PROC: 0DNU4ZZ Release Omentum, Percutaneous Endoscopic Approach (ICD-10-PCS; 2017-12-13)
PROC: 0DNW4ZZ Release Peritoneum, Percutaneous Endoscopic Approach (ICD-10-PCS; 2017-12-13)
PROC: 07BC4ZZ Excision of Pelvis Lymphatic, Percutaneous Endoscopic Approach (ICD-10-PCS; 2017-12-13)
PROC: 0DNJ4ZZ Release Appendix, Percutaneous Endoscopic Approach (ICD-10-PCS; 2017-12-13)
PROC: 0DNB4ZZ Release Ileum, Percutaneous Endoscopic Approach (ICD-10-PCS; 2017-12-13)
PROC: 0DBW4ZZ Excision of Peritoneum, Percutaneous Endoscopic Approach (ICD-10-PCS; 2017-12-13)
PROC: 8E0W4CZ Robotic Assisted Procedure of Trunk Region, Percutaneous Endoscopic Approach (ICD-10-PCS; 2017-12-13)
PROC: 0DTF0ZZ Resection of Right Large Intestine, Open Approach (ICD-10-PCS; principal; 2017-12-13 08:18)
DX: C18.1 Malignant neoplasm of appendix (principal); C78.6 Secondary malignant neoplasm of retroperitoneum and peritoneum; C77.2 Secondary and unspecified malignant neoplasm of intra-abdominal lymph nodes; C79.61 Secondary malignant neoplasm of right ovary; N83.511 Torsion of right ovary and ovarian pedicle; K56.7 Ileus, unspecified; D25.9 Leiomyoma of uterus, unspecified; K66.0 Peritoneal adhesions (postprocedural) (postinfection); R00.0 Tachycardia, unspecified; E78.00 Pure hypercholesterolemia, unspecified; N72 Inflammatory disease of cervix uteri; K21.9 Gastro-esophageal reflux disease without esophagitis
CPT/HCPCS: 74018; 80048; 85025; 88305; 88307; 88309; 88331; 94150; C9113; J0131; J0690; J1100; J1170; J1644; J1650; J1885; J2250; J2270; J2370; J2405; J2765; J3010; J3480; J7040; J7120

== ENCOUNTER 2018-04-05 17:53 | Inpatient (IN) ==
[2018-04-05] MEDS ORDERED: Aluminum/Magnesium/Simethacone Susp 30 ML UDC PO ONE (19:24)
[2018-04-05] MEDS ORDERED: Sod Chloride 0.9% Inj 1,000 ML IV.SIG ONE (19:24)
[2018-04-05] MEDS ORDERED: Morphine Inj 4 MG/ML Vial IV.PUSH ONE (19:24)
[2018-04-05 20:08] LABS: Baso % (Auto) 0.4 % (0.0-2.0); Eos # (Auto) 0.1 th/mm3 (0.0-0.4); Eos % (Auto) 0.7 % (0.0-4.0); Hematocrit 44.3 % (35.0-46.0); Hemoglobin 14.8 gm/dL (11.6-15.3); Lymph # (Auto) 0.9 th/mm3 (1.0-4.8); Lymph % (Auto) 9.2 % (9.0-44.0); Mean Corpuscular HGB Conc 33.5 % (32.0-36.0); Mean Corpuscular Volume 101.5 fL (80.0-100.0); Mean Platelet Volume 7.7 fL (7.0-11.0); Mono # (Auto) 1.2 th/mm3 (0.0-0.9); Mono % (Auto) 13.1 % (0.0-8.0); Neut # (Auto) 7.1 th/mm3 (1.8-7.7); Neut % (Auto) 76.6 % (16.0-70.0); Platelet Count 163 th/mm3 (150-450); Red Blood Count 4.36 mil/mm3 (4.00-5.30); Red Cell Distribution Width 19.5 % (11.6-17.2); White Blood Count 9.3 th/mm3 (4.0-11.0)
[2018-04-05 20:19] LABS: Albumin 3.8 g/dL (3.4-5.0); Anion Gap 12 meq/L (5-15); Aspartate Aminotransferase 24 U/L (15-37); Blood Urea Nitrogen 17 mg/dL (7-18); Calcium 8.8 mg/dL (8.5-10.1); Carbon Dioxide 19.5 meq/L (21.0-32.0); Chloride 103 meq/L (98-107); Glomerular Filtration Rate 65 mL/min (>89); Glucose,Random 111 mg/dL (74-106); Lipase 177 U/L (73-393); Potassium 3.1 meq/L (3.5-5.1); Sodium 134 meq/L (136-145)
[2018-04-05 20:20] LABS: Alanine Aminotransferase 19 U/L (10-53)
[2018-04-05 20:24] LABS: Alkaline Phosphatase 84 U/L (45-117)
--- NOTE | 2018-04-05 20:37 | ED ---
HPI General Chief Complaint: Abdominal Pain Stated Complaint: dehydration/nausea/chemo on saturday reactions Time Seen by Provider: 04/05/18 19:09 Source: patient Mode of arrival: ambulatory Limitations: no limitations History of Present Illness complaint: abdominal pain Onset (ago): day(s) (3) Pain Consistency: constant Location: diffuse Severity: mild Quality: burning Radiation: none Migration to: no migration Relieving factors: nothing Associated symptoms: nausea and vomiting Related Data Home Medications Medication Instructions Recorded Confirmed atorvastatin 10 mg PO DAILY 04/05/18 04/05/18 ondansetron HCl [Zofran] 4 mg PO TID PRN 04/05/18 04/05/18 oxaliplatin 04/05/18 prochlorperazine maleate mg PO Q6-8H PRN 04/05/18 Allergies Allergy/AdvReac Type Severity Reaction Status Date / Time No Known Allergies Allergy Unknown Uncoded 12/13/17 07:07 Review of Systems ROS: all other systems reviewed are negative [facility] Medical History Medical History Cancer of appendix (Acute) H/O: hysterectomy (Acute) High cholesterol (Acute) Surgical History Surgical History History of appendectomy (Acute) Social History Social History Substance History: No History of Abuse Second Hand Smoke Exposure: No Smoking Status: Never smoker How Often Do You Have a Drink Containing Alcohol: Never Recent Travel in [facility] within the Last 8 Weeks: No Recent Out of Country Travel within the Last 8 Weeks: No Immunization History Tetanus Immunization: <5 Years Hx Influenza Vaccine This Season: Yes Exam Narrative Exam Narrative: GENERAL: [-] SKIN: Focused skin assessment warm/dry. HEAD: Atraumatic. Normocephalic. EYES: Pupils equal and round. No scleral icterus. No injection or drainage. ENT: No nasal bleeding or discharge. Mucous membranes pink and moist. NECK: Trachea midline. No JVD. CARDIOVASCULAR: Regular rate and rhythm. No murmur appreciated. RESPIRATORY: No accessory muscle use. Clear to auscultation. Breath sounds equal bilaterally. GASTROINTESTINAL: Abdomen soft, non-tender, nondistended. Hepatic and splenic margins not palpable. MUSCULOSKELETAL: No obvious deformities. No clubbing. No cyanosis. No edema. NEUROLOGICAL: Awake and alert. No obvious cranial nerve deficits. Motor grossly within normal limits. Normal speech. PSYCHIATRIC: Appropriate mood and affect; insight and judgment normal. Course Initial Documented Vital Signs Temperature 98.2 F 04/05/18 18:30 Pulse Rate 124 H 04/05/18 18:30 Respiratory Rate 18 04/05/18 18:30 Blood Pressure 97/68 L 04/05/18 18:30 Pulse Oximetry 99 04/05/18 18:30 Last Documented Vital Signs Temperature 98.2 F 04/05/18 18:30 Pulse Rate 96 H 04/05/18 20:59 Respiratory Rate 14 04/05/18 20:59 Blood Pressure 126/96 H 04/05/18 20:59 Pulse Oximetry 94 L 04/05/18 20:59 Medical Decision Making MDM Narrative Medical Screen Exam Complete: Yes Emergency Medical Condition: Yes Lab Data Lab results reviewed: Yes I reviewed the patient's lab results. Result diagrams: 04/05/18 19:40 04/05/18 19:40 Lab Results 04/05/18 04/05/18 Range/Units 19:40 19:40 WBC 9.3 (4.0-11.0) th/mm3 RBC 4.36 (4.00-5.30) mil/mm3 Hgb 14.8 (11.6-15.3) gm/dL Hct 44.3 (35.0-46.0) % MCV 101.5 H (80.0-100.0) fL MCH 34.0 (27.0-34.0) pg MCHC 33.5 (32.0-36.0) % RDW 19.5 H (11.6-17.2) % Plt Count 163 (150-450) th/mm3 MPV 7.7 (7.0-11.0) fL Neut % (Auto) 76.6 H (16.0-70.0) % Lymph % (Auto) 9.2 (9.0-44.0) % [place] % (Auto) 13.1 H (0.0-8.0) % Eos % (Auto) 0.7 (0.0-4.0) % Baso % (Auto) 0.4 (0.0-2.0) % Neut # (Auto) 7.1 (1.8-7.7) th/mm3 Lymph # (Auto) 0.9 L (1.0-4.8) th/mm3 [place] # (Auto) 1.2 H (0.0-0.9) th/mm3 Eos # (Auto) 0.1 (0.0-0.4) th/mm3 Baso # (Auto) 0.0 (0.0-0.2) th/mm3 WBC Differential . Differential Comment Auto diff final Sodium 134 L (136-145) meq/L Potassium 3.1 L (3.5-5.1) meq/L Chloride 103 (98-107) meq/L Carbon Dioxide 19.5 L (21.0-32.0) meq/L Anion Gap 12 (5-15) meq/L BUN 17 (7-18) mg/dL Creatinine 0.85 (0.50-1.00) mg/dL Estimated GFR 65 L (>89) mL/min Random Glucose 111 H (74-106) mg/dL Calcium 8.8 (8.5-10.1) mg/dL Total Bilirubin 0.5 (0.2-1.0) mg/dL AST 24 (15-37) U/L ALT 19 (10-53) U/L Alkaline Phosphatase 84 (45-117) U/L Troponin I Less than 0.02 L (0.02-0.05) ng/mL Total Protein 8.0 (6.4-8.2) g/dL Albumin 3.8 (3.4-5.0) g/dL Lipase 177 (73-393) U/L Imaging Data Radiologist's impression: Chest X-Ray 04/05/18 19:24 CONCLUSION: No acute cardiopulmonary disease. Discharge Plan Discharge Disposition Patient Disposition: 30 Still Patient Physicians Team ED Provider: Ozzy Flores Primary Care Provider: Sarah King Attending Provider: Saul Meier Discharge Interventions Interventions: ED Discharge Assessment Last Done: 04/05/18 21:39 Vital Signs Last Done: 04/05/18 20:15 Status ED Status: Admitted Patient
--- NOTE | 2018-04-05 20:52 | XR ---
EXAM DATE: 04/05/2018 8:47 PM EDT AGE/SEX: 73 years / Female INDICATIONS: Nausea, vomiting, diarrhea after her chemotherapy on Saturday. CLINICAL DATA: This is the patient's initial encounter. Patient reports that signs and symptoms have been present for 4 - 6 days and indicates a pain score of 0/10. MEDICAL/SURGICAL HISTORY: Carcinoma, appendix. Hysterectomy. Appendectomy. COMPARISON: [facility] – [place], CHEST SINGLE AP, 11/23/2017. . FINDINGS: The lungs are clear without infiltrate, nodule, or mass. There is no appreciable pleural effusion for technique. Heart and mediastinum are unremarkable. CONCLUSION: No acute cardiopulmonary disease. Electronically signed by: Simon Lamb MD 04/05/2018 8:51 PM EDT
[2018-04-05] MEDS ORDERED: Temazepam 15 MG Capsule PO PRN (21:08)
[2018-04-05] MEDS ORDERED: Acetaminophen 325 MG Tablet PO PRN (21:09)
[2018-04-05 21:52] LABS: Bacteria,Urine Occasional /hpf; Bilirubin,Urine Negative (Negative); Clarity,Urine Clear (Clear); Color,Urine Yellow (Yellw/Straw); Glucose,Urine (UA) Negative (Negative); Hyaline Casts,Urine 12 /lpf (0-3); Leukocyte Esterase,Urine Negative (Negative); Mucus,Urine Few /lpf (Occasional); Nitrite,Urine Negative (Negative); Specific Gravity,Urine 1.008 (1.002-1.035); Squamous Epithelial Cell,Urine 2 /hpf (0-5)
[2018-04-05] MEDS: dilTIAZem Inj 125 MG in Sodium Chlor 0.9% Inj 100 ML IV.CONT PRN (22:31)
[2018-04-06] MEDS: Potassium Chloride Inj 10 MEQ in Sod Chloride 0.9% Inj 1,000 ML IV.CONT SCH ×3 (00:29→23:29)
--- NOTE | 2018-04-06 09:09 | P.HPIM ---
History of Present Illness Service: [facility] Primary Care Physician: Sarah King MD History of Present Illness: Pt is 73 yo female with diagnosis of mucinous adenocarcinoma appendiceal origin. On December 13 pt was seen by Dr King and Polo. She had Right ovarian mass with torsion, significant intraperitoneal adhesions and intraperitoneal seeding.Robotic- assisted laparoscopic hysterectomy, bilateral salpingo-oophorectomy (with resection of approximately 14 cm torsed right ovarian mass), extensive lysis of adhesions and right hemicolectomy performed. Pathology revealed features of mucinous adenoca. Also a hemorrhagic right ovarian cyst with features of torsion. Pt went to [place] to see establish oncology care. Over past 3months pt reports being treated with capacitabine 2wk on/1wk off and developing diarrhea with this treatment. Also she says this past Saturday was her fourth round of Oxyplatin. She has had n/v since with abdomen cramps and diarrhea. She has diarrhea since above chemo. She is scheduled for Hipec surgery on April 28 per her report. Pt presented to ED last night dehydrated and found to have new afib/rvr. given iv cardizem and this AM is on 5mg/hr and is in sinus rhythm at 70s bmp. PMH hyperlipidemia mucinous adenocarcinoma appendiceal origin On December 13 Robotic-assisted laparoscopic hysterectomy,BSO, (with resection of approximately 14 cm torsed right ovarian mass), extensive lysis of adhesions and right hemicolectomy performed. Pathology revealed features of mucinous adenoca. Also a hemorrhagic right ovarian cyst with features of torsion. FH: Father. pheo. [place] Mother lymphoma sister breast ca SH. rare etoh. no tob - Diagnosis (1) Atrial fibrillation with RVR (2) Mucinous adenocarcinoma of appendix Inpatient Certification: I certify that the inpatient services were ordered in accordance with Medicare regulations governing the order. This includes certification that hospital inpatient services are reasonable and necessary and in the case of services not specified as inpatient-only under 42 CFR 419.22(n), that they are appropriately provided as inpatient services in accordance to with the 2-midnight benchmark under 43 CFR 412.3(e) Estimated Total Length of Stay (Days): 3 Plans for Post Hospital Care: Home Review of Systems n/v/d abdomen cramps PMFSH - History History Provided By: Patient, Family Member - Medical History Medical History: Medical History (Last Updated 04/05/18 @ 22:10 by Faith Cam) Cancer of appendix Esophageal stricture H/O: hysterectomy High cholesterol Neuropathy Osteopenia - Surgical History Surgical History: Surgical History (Last Updated 04/05/18 @ 22:10 by Faith Cam) History of appendectomy Hx of salpingo-oophorectomy, bilateral - Tobacco History Second Hand Smoke Exposure: No Smoking Status: Never smoker - Alcohol History How Often Do You Have a Drink Containing Alcohol: Never - Substance Use History Substance History: No History of Abuse - Travel History Recent Travel in the [place] Within the Last 8 Weeks: No Recent Travel Out of the Country Within the Last 8 Weeks: No - Immunization History Tetanus Immunization: <5 Years Hx Influenza Vaccine This Season: Yes Medications and Allergies Active Medications: Active Medications Acetaminophen (Tylenol) 650 mg PO Q4H PRN PRN Reason: pain 1-10,fever Diltiazem HCl 125 mg/ Sodium (Chloride) 125 mls @ 5 mls/hr IV.CONT TITRATE PRN ; Protocol PRN Reason: Per Protocol Last Titration: 04/05/18 23:30 Dose: 5 mg/hr, 5 mls/hr Potassium Chloride 10 meq/ (Sodium Chloride) 1,005 mls @ 84 mls/hr IV.CONT .[id number] LIVAN Last Admin: 04/06/18 00:29 Dose: 84 mls/hr Metoprolol Tartrate (Lopressor) 25 mg PO BID LIVAN Ondansetron HCl (Zofran Inj) 4 mg IV.PUSH Q6H PRN PRN Reason: n/v Last Admin: 04/05/18 23:10 Dose: 4 mg Sodium Chloride (Ns Flush) 2 ml IV.FLUSH PRN PRN PRN Reason: FLUSH AFTER USING IV ACCESS Last Admin: 04/05/18 20:26 Dose: 2 ml Temazepam (Restoril) 15 mg PO HS PRN PRN Reason: INSOMNIA Allergies Allergy/AdvReac Type Severity Reaction Status Date / Time No Known Allergies Allergy Unknown Uncoded 12/13/17 07:07 Home Medications Medication Instructions Recorded Confirmed Type atorvastatin 10 mg PO DAILY 04/05/18 04/05/18 History capecitabine See Label Instructions .ROUTE 04/05/18 04/05/18 History .COMPLEX ondansetron HCl [Zofran] 4 mg PO TID PRN 04/05/18 04/05/18 History oxaliplatin See Label Instructions .ROUTE 04/05/18 04/06/18 History .COMPLEX prochlorperazine maleate 5 mg PO Q6-8H PRN 04/05/18 04/05/18 History Exam Vital signs: Vital Signs 04/05/18 18:30 04/05/18 19:06 04/05/18 19:38 Temperature 98.2 F Pulse Rate 124 H 140 H 106 H Respiratory Rate 18 14 Blood Pressure 97/68 L 114/62 Pulse Oximetry 99 97 04/05/18 20:15 04/05/18 20:59 04/05/18 21:44 Temperature Pulse Rate 120 H 96 H 95 H Respiratory Rate 14 14 14 Blood Pressure 159/88 H 126/96 H 99/59 L Pulse Oximetry 98 94 L 95 04/05/18 22:00 04/05/18 22:30 04/05/18 22:45 Temperature 98 F Pulse Rate 92 H 90 90 Respiratory Rate 16 16 16 Blood Pressure 119/71 124/75 110/67 Pulse Oximetry 99 04/05/18 23:00 04/05/18 23:15 04/05/18 23:30 Temperature Pulse Rate 84 85 86 Respiratory Rate 15 16 16 Blood Pressure 117/74 109/78 118/77 Pulse Oximetry 04/06/18 00:00 04/06/18 01:00 04/06/18 02:00 Temperature 98.3 F Pulse Rate 86 84 80 Respiratory Rate 16 Blood Pressure 115/72 Pulse Oximetry 96 04/06/18 03:00 04/06/18 04:00 04/06/18 05:00 Temperature 97.6 F Pulse Rate 78 78 78 Respiratory Rate 16 Blood Pressure 120/72 Pulse Oximetry 99 04/06/18 06:00 04/06/18 07:00 04/06/18 07:48 Temperature Pulse Rate 72 74 72 Respiratory Rate Blood Pressure Pulse Oximetry Intake & Output 04/05/18 04/06/18 04/06/18 18:59 06:59 18:59 Intake Total 1000 / 1000 Output Total 300 / 300 200 / 200 Balance 700 / 700 -200 / -200 Weight 54.431 kg Intake: IV 1000 / 1000 NS Inj 1,000 ML @ Wide Open IV. 1000 / 1000 SIG BOLUS ONE Rx#:[id number] Output: Urine 300 / 300 200 / 200 Other: Date of Last Bowel Movement 04/06/18 # Bowel Movements 1 1 heart reg lung cta abd s/nt ext no edema Results - Labs CBC & Chem 7: 04/05/18 19:40 04/06/18 11:03 Labs: Short CBC 04/05/18 Range/Units 19:40 WBC 9.3 (4.0-11.0) th/mm3 Hgb 14.8 (11.6-15.3) gm/dL Hct 44.3 (35.0-46.0) % Plt Count 163 (150-450) th/mm3 BMP 04/05/18 19:40 Sodium 134 L Potassium 3.1 L Chloride 103 Carbon Dioxide 19.5 L BUN 17 Creatinine 0.85 Calcium 8.8 Cardiac Enzymes 04/05/18 Range/Units 19:40 Troponin I Less than 0.02 L (0.02-0.05) ng/mL Liver Function 04/05/18 Range/Units 19:40 Total Bilirubin 0.5 (0.2-1.0) mg/dL AST 24 (15-37) U/L ALT 19 (10-53) U/L Alkaline Phosphatase 84 (45-117) U/L Albumin 3.8 (3.4-5.0) g/dL Urine 04/05/18 Range/Units 21:20 Urine Color Yellow (Yellw/Straw) Urine Clarity Clear (Clear) Urine pH 6.0 (5.0-8.5) Ur Specific [place] 1.008 (1.002-1.035) Urine Protein Negative (Neg-Trace) mg/dL Urine Glucose (UA) Negative (Negative) mg/dL - Imaging Impressions Chest X-Ray 04/05/18 19:24 CONCLUSION: No acute cardiopulmonary disease. Caprini VTE Risk Assessment Caprini VTE Risk Assessment: Moderate/High Risk (score >= 2) Caprini Risk Assessment Model: Point Value = 1 Point Value = 2 Point Value = 3 Point Value = 5 Age 41-60 Minor surgery BMI > 25 kg/m2 Swollen legs Varicose veins or History of unexplained or recurrent spontaneous Oral contraceptives or hormone replacement Sepsis (< 1 month) Serious lung disease, including pneumonia (< 1 month) Abnormal pulmonary function Acute myocardial infarction Congestive heart failure (< 1 month) History of inflammatory bowel disease Medical patient at bed rest Age 61-74 Arthroscopic surgery Major open surgery (> 45 min) Laparoscopic surgery (> 45 min) Malignancy Confined to bed (> 72 hours) Immobilizing plaster cast Central venous access Age >= 75 History of VTE Family history of VTE Factor V Leiden Prothrombin [id number] Lupus anticoagulant Anticardiolipin antibodies Elevated serum homocysteine Heparin-induced thrombocytopenia Other congenital or acquired thrombophilia Stroke (< 1 month) Elective arthroplasty Hip, pelvis, or leg fracture Acute spinal cord injury (< 1 month) Prophylaxis Regimen: Total Risk Factor Score Risk Level Prophylaxis Regimen 0-1 Low Early ambulation 2 Moderate Order ONE of the following: *Sequential Compression Device (SCD) *Heparin 5000 units SQ BID 3-4 Higher Order ONE of the following medications: *Heparin 5000 units SQ TID *Enoxaparin/Lovenox 40 mg SQ daily (WT < 150 kg, CrCl > 30 mL/min) *Enoxaparin/Lovenox 30 mg SQ daily (WT < 150 kg, CrCl > 10-29 mL/min) *Enoxaparin/Lovenox 30 mg SQ BID (WT < 150 kg, CrCl > 30 mL/min) AND/OR *Sequential Compression Device (SCD) 5 or more Highest Order ONE of the following medications: *Heparin 5000 units SQ TID (Preferred with Epidurals) *Enoxaparin/Lovenox 40 mg SQ daily (WT < 150 kg, CrCl > 30 mL/min) *Enoxaparin/Lovenox 30 mg SQ daily (WT < 150 kg, CrCl > 10-29 mL/min) *Enoxaparin/Lovenox 30 mg SQ BID (WT < 150 kg, CrCl > 30 mL/min) AND *Sequential Compression Device (SCD) Assessment and Plan - Assessment (1) Atrial fibrillation with RVR Code(s): I48.91 - Unspecified atrial fibrillation Status: Acute Plan: Pt is 73 yo female with diagnosis of mucinous adenocarcinoma appendiceal origin. On December 13 pt was seen by Dr King and Polo. She had Right ovarian mass with torsion, significant intraperitoneal adhesions and intraperitoneal seeding.Robotic- assisted laparoscopic hysterectomy, bilateral salpingo-oophorectomy (with resection of approximately 14 cm torsed right ovarian mass), extensive lysis of adhesions and right hemicolectomy performed. Pathology revealed features of mucinous adenoca. Also a hemorrhagic right ovarian cyst with features of torsion. Pt went to [place] to see establish oncology care. Over past 3months pt reports being treated with capacitabine 2wk on/1wk off and developing diarrhea with this treatment. Also she says this past Saturday was her fourth round of Oxaliplatin. She has had n/v since with abdomen cramps and diarrhea. She has diarrhea since above chemo. She is scheduled for Hipec surgery on April 28 per her report. Pt presented to ED last night dehydrated and found to have new afib/rvr. given iv cardizem and this AM is on 5mg/hr and is in sinus rhythm at 70s bmp. stop cardizem drip. add 25mg po bid metoprolol. Ambulate to assess rate control 2d echo to assess LVF cont telemetry. cont NS with KCL stool studies today. prn immodium if cdiff neg. check tsh liquid diet. advance as tolerated today. (2) Mucinous adenocarcinoma of appendix Code(s): C18.1 - Malignant neoplasm of appendix Status: Acute H&P: Quality - VTE Deep Vein Thrombosis/Pulmonary Embolism Present on Admission: No
[2018-04-06] MEDS: Metoprolol Tartrate 25 MG Tablet PO SCH ×2 (10:39→22:13)
--- NOTE | 2018-04-06 11:48 | ECG ---
Date Performed: 04/05/2018 Time Performed: 19:16:04 PTAGE: 73 years EKG: SINUS TACHYCARDIA ABNORMAL RHYTHM ECG INTERPRETATION BASED ON A DEFAULT AGE OF 40 YEARS PREVIOUS TRACING : 11/23/2017 14.52 Since the previous tracing, no significant change not ed DOCTOR: Amparo Foster Interpretating Date/Time 04/06/2018 11:47:02
--- NOTE | 2018-04-06 11:50 | ECG ---
Date Performed: 04/05/2018 Time Performed: 19:17:04 PTAGE: 73 years EKG: ATRIAL FIBRILLATION WITH RAPID VENTRICULAR RESPONSE WITH ABERRANT CONDUCTION OR VENTRICULAR PREMATURE COMPLEXES ABNORMAL RHYTHM ECG INTERPRETATION BASED ON A DEFAULT AGE OF 40 YEARS PREVIOUS TRACING : 04/05/2018 19.16 Compared to previous tracing, patient is now in atria l fibrillation With rapid ventricular response. DOCTOR: Amparo Foster Interpretating Date/Time 04/06/2018 11:47:44
--- NOTE | 2018-04-06 11:51 | ECG ---
Date Performed: 04/05/2018 Time Performed: 21:34:25 PTAGE: 73 years EKG: Sinus rhythm NORMAL ECG PREVIOUS TRACING : 04/05/2018 19.17 Compared to previous tracing, patient is now in sinus rhyth m DOCTOR: Amparo Foster Interpretating Date/Time 04/06/2018 11:48:17
[2018-04-06 12:49] LABS: Anion Gap 9 meq/L (5-15); Blood Urea Nitrogen 9 mg/dL (7-18); Calcium 8.2 mg/dL (8.5-10.1); Carbon Dioxide 23.1 meq/L (21.0-32.0); Chloride 106 meq/L (98-107); Glomerular Filtration Rate Greater Than 89 mL/min (>89); Glucose,Random 106 mg/dL (74-106); Potassium 3.2 meq/L (3.5-5.1); Sodium 138 meq/L (136-145)
[2018-04-06] MEDS ORDERED: Loperamide 2 MG Capsule PO PRN (16:16)
[2018-04-06] MEDS ORDERED: Diatrizoate Meglum/Diatrizoate Sod Liq 9 ML UDC PO ONE (19:30)
--- NOTE | 2018-04-06 21:11 | CT ---
EXAM DATE: 04/06/2018 9:06 PM EDT AGE/SEX: 73 years / Female INDICATIONS: Abdomen pain with nausea and vomiting. CLINICAL DATA: This is the patient's initial encounter. Patient reports that signs and symptoms have been present for 4 - 6 days and indicates a pain score of 3/10. MEDICAL/SURGICAL HISTORY: . Cancer of appendix Chemotherapy Appendectomy. Hysterectomy. RADIATION DOSE: 6.01 CTDI (mGy) COMPARISON: [facility] [place], CT ABDOMEN & PELVIS W/O CONTRAST, 11/22/2017. . TECHNIQUE: Multiple contiguous axial images were obtained through the abdomen. Images were obtained using multiple row detector helical technique. Using automated exposure control and adjustment of the mA and/or kV according to patient size, radiation dose was kept as low as reasonably achievable to o btain optimal diagnostic quality images. DICOM format image data is available electronically for rev iew and comparison. FINDINGS: Abdomen CT: The spleen, pancreas, kidneys, adrenals are unremarkable. There is no evidence for any appreciable pa thological adenopathy, free fluid, or bowel obstruction. The colon appears distended diffusely mainl y in the cecum measures 9.6 cm in transverse diameter most likely colonic ileus. The small bowel loop s are not particularly dilated although some of them are slightly prominent with air-fluid levels wit hin them. Tiny pericardial effusion is seen probably of no clinical significance. Chronic vascular at herosclerotic calcifications are seen involving the aorta. There is prominent fat underneath the umbi licus without evidence for bowel herniation. Small hiatal hernia is seen. Small hepatic cyst is seen not changed. Pelvic CT: There is no evidence for mass, abscess formation, or any significant adenopathy within the pelvis. P reviously seen right adnexal cystic mass is no longer seen. CONCLUSION: 1. Probable chronic ileus and most likely gastroenteritis with fluid levels within loops of small evette wel not particularly dilated. 2. Otherwise chronic changes not significantly changed. Electronically signed by: Simon Lamb MD 04/06/2018 9:10 PM EDT
[2018-04-07 07:07] LABS: Anion Gap 10 meq/L (5-15); Blood Urea Nitrogen 8 mg/dL (7-18); Calcium 8.3 mg/dL (8.5-10.1); Carbon Dioxide 17.7 meq/L (21.0-32.0); Chloride 109 meq/L (98-107); Glomerular Filtration Rate Greater Than 89 mL/min (>89); Glucose,Random 109 mg/dL (74-106); Magnesium 1.6 mg/dL (1.5-2.5); Potassium 3.4 meq/L (3.5-5.1); Sodium 137 meq/L (136-145)
[2018-04-07] MEDS: Promethazine 25 MG Supp RECTAL PRN ×2 (09:22→15:25)
[2018-04-07] MEDS: Metoprolol Tartrate 25 MG Tablet PO SCH ×2 (10:10→20:27)
[2018-04-07] MEDS: Potassium Chloride Inj 10 MEQ in Sod Chloride 0.9% Inj 1,000 ML IV.CONT SCH ×2 (11:21→23:09)
[2018-04-07] MEDS ORDERED: HYDROmorphone PF Inj 1 MG/ML Ampul IV.PUSH PRN (12:08)
[2018-04-07] MEDS: Diphenoxylate/Atropine 2.5/0.025 MG Tablet PO PRN (13:40)
--- NOTE | 2018-04-07 14:57 | ECHRPT ---
Indication: afib and flutter CONCLUSIONS The left ventricular systolic function is hyperdynamic with an estimated ejection fraction in the ra nge of 65- 70%. Normal left ventricular size and wall thickness. The left atrial size is moderately dilated. Mild aortic valve regurgitation. There is mild tricuspid valve regurgitation. Estimated RSVP is 36 mmHg ICV is normal size with greater than 50% collapse with inspiration. No pericardial effusion. No prior echo for comparision. BP: / HR: Rhythm: sinus MEASUREMENTS (Male / Female) Normal Values Technical Quality:technically difficult 2D ECHO LV Diastolic Diameter PLAX 4.3 cm 4.2 - 5.9 / 3.9 - 5.3 cm LV Systolic Diameter PLAX 2.1 cm IVS Diastolic Thickness 0.7 cm 0.6 - 1.0 / 0.6 - 0.9 cm LVPW Diastolic Thickness 0.7 cm 0.6 - 1.0 / 0.6 - 0.9 cm LV Relative Wall Thickness 0.3 RV Internal Dim ED PLAX 2.7 cm LVOT Diameter 1.6 cm LV Ejection Fraction MOD 4C 69.8 % LV Ejection Fraction 4C AL 70.2 % M-MODE Aortic Root Diameter MM 2.8 cm LA Systolic Diameter MM 4.3 cm LA Ao Ratio MM 1.5 AV Cusp Separation MM 1.8 cm DOPPLER AV Peak Velocity 182.0 cm/s AV Peak Gradient 13.2 mmHg AI Peak Velocity 404.0 cm/s AI Peak Gradient 65.3 mmHg AI Pressure Half Time 749.0 ms LVOT Peak Velocity 119.0 cm/s LVOT Peak Gradient 5.7 mmHg AV Area Cont Eq pk 1.3 cm Mitral E Point Velocity 94.8 cm/s Mitral A Point Velocity 116.0 cm/s Mitral E to A Ratio 0.8 LV E' Lateral Velocity 9.4 cm/s Mitral E to LV E' Lateral Ratio 10.1 LV E' Septal Velocity 7.6 cm/s Mitral E to LV E' Septal Ratio 12.5 TR Peak Velocity 254.0 cm/s TR Peak Gradient 25.8 mmHg Right Atrial Pressure 10.0 mmHg Pulmonary Artery Systolic Pressu 35.8 mmHg Right Ventricular Systolic Press 35.8 mmHg PV Peak Velocity 99.1 cm/s PV Peak Gradient 3.9 mmHg FINDINGS LEFT VENTRICLE Wall thickness is normal. Normal left ventricular size. The left ventricular systolic function is hyperdynamic with an estimated ejection fraction in the ra nge of 65- 70%. RIGHT VENTRICLE Normal right ventricular size and systolic function. LEFT ATRIUM The left atrial size is moderately dilated RIGHT ATRIUM The right atrial size is normal. ATRIAL SEPTUM Normal atrial septal thickness without atrial level shunting by limited color doppler interrogation. AORTA The aortic root and proximal ascending aorta are normal in size on limited imaging. MITRAL VALVE Trace mitral valve regurgitation. Mitral annular calcification is present. AORTIC VALVE Mild aortic valve regurgitation. Aortic valve sclerosis is present. TRICUSPID VALVE There is mild tricuspid valve regurgitation. PULMONARY VALVE No pulmonary valve regurgitation or stenosis. VESSELS The inferior vena cava is normal in size. PERICARDIUM No pericardial effusion. Madie Winchester MD (Electronically Signed) Final Date:07 April 2018 14:55
--- NOTE | 2018-04-07 15:16 | P.PNIM ---
Subjective Interval history: Pt has been having continued diarrhea and vomiting despite antiemetics and anti- diarrheal meds Afebrile Physical Exam Vital signs: Vital Signs 04/06/18 15:43 04/06/18 16:00 04/06/18 20:00 Temperature 98.7 F 99.2 F Pulse Rate 79 75 93 H Respiratory Rate 20 16 Blood Pressure 126/75 156/94 H Pulse Oximetry 96 99 04/06/18 20:49 04/07/18 00:00 04/07/18 04:00 Temperature 99.7 F H 99.1 F Pulse Rate 73 75 Respiratory Rate 16 16 Blood Pressure 111/60 116/74 Pulse Oximetry 95 99 96 04/07/18 07:01 04/07/18 09:20 04/07/18 10:53 Temperature 98.6 F Pulse Rate 71 79 Respiratory Rate 18 Blood Pressure 132/78 Pulse Oximetry 96 96 04/07/18 11:00 04/07/18 11:28 Temperature 97.8 F Pulse Rate 68 68 Respiratory Rate 15 Blood Pressure 119/76 Pulse Oximetry 97 Intake & Output 04/06/18 04/07/18 04/07/18 18:59 06:59 18:59 Intake Total 2065 / 2065 1105 / 1105 1005 / 1005 Output Total 200 / 200 400 / 400 Balance 1865 / 1865 705 / 705 1005 / 1005 Weight 53.9 kg Intake: IV 1065 / 1065 1105 / 1105 1005 / 1005 KCl Inj 10 MEQ In NS Inj 1,000 1005 / 1005 1005 / 1005 1005 / 1005 ML @ 84 mls/hr IV.CONT .[id number] COUNTS INCLUDE 234 BEDS AT [facility] Rx#:[id number] Cardizem Inj 125 MG In NS Inj 60 / 60 100 ML @ 5 MG/HR 5 mls/hr IV. CONT TITRATE PRN Rx#:[id number] Ofirmev Inj 1,000 mg In 100 ml 100 / 100 @ 400 mls/hr IV.SIG ONCE ONE Rx #:[id number] Oral 1000 / 1000 Output: Urine 200 / 200 400 / 400 Other: # Voids 4 Date of Last Bowel Movement 04/06/18 04/07/18 04/07/18 # Bowel Movements 6 3 Narrative: General: Ill appearing female in NAD Chest: CTA Cardiac: RRR Abd: Decreased BS, soft ND/NT Ext: No edema Results - Labs CBC & Chem 7: 04/12/18 05:40 04/13/18 05:20 Laboratory Results - last 24 hr 04/07/18 06:09 Sodium 137 Potassium 3.4 L Chloride 109 H Carbon Dioxide 17.7 L Anion Gap 10 BUN 8 Creatinine 0.58 Estimated GFR Greater than 89 Random Glucose 109 H Calcium 8.3 L Magnesium 1.6 - Imaging Impressions Abdomen/Pelvis CT 04/06/18 00:00 CONCLUSION: 1. Probable chronic ileus and most likely gastroenteritis with fluid levels within loops of small bowel not particularly dilated. 2. Otherwise chronic changes not significantly changed. - Procedures 2D echo(04/07/18): - Estimated ejection fraction in the range of 65-70%. - The left atrial size is moderately dilated. - Mild aortic valve regurgitation. - There is mild tricuspid valve regurgitation. - Estimated RSVP is 36 mmHg - ICV is normal size with greater than 50% collapse with inspiration. Assessment and Plan - Assessment (1) Atrial fibrillation with RVR Code(s): I48.91 - Unspecified atrial fibrillation Status: Acute Plan: A. 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 On December 13 pt was seen by Dr King and Polo. She had a right ovarian mass with torsion, significant intraperitoneal adhesions and intraperitoneal seeding. Pt underwent robotic-assisted laparoscopic hysterectomy, bilateral salpingo- oophorectomy (with resection of approximately 14 cm torsed right ovarian mass), extensive lysis of adhesions and right hemicolectomy performed. Pathology revealed features of mucinous adenocarcinoma. Pt went to [place] to see establish oncology care. - Over past 3months pt reports being treated with Capacitabine 2wk on/1wk off and this past Saturday was her fourth round of Oxaliplatin. She reports that she is scheduled for Hipec surgery on April 28 per her report. - Pt was developing diarrhea with this treatment and she has had n/v since with abdomen cramps and diarrhea. - Pt presented to the ED on 04/05 with dehydration and was found to have new A.fib/RVR. - Pt was started on IV Cardizem gtt and then weaned off of it. - Pt was started on Metoprolol 25mg po bid. Pt has remained in NSR. Ambulate to assess rate control - 2D echo (04/07/18): - Estimated ejection fraction in the range of 65-70%. - LA is moderately dilated. - Mild aortic valve regurgitation. - Mild tricuspid valve regurgitation. - Estimated RSVP is 36 mmHg - ICV is normal size with greater than 50% collapse with inspiration. - Cont telemetry. - Stool studies were cdiff neg. - Stool for enteric pathogens is pending. - Lomotil PRN - CT Abd/pelvis (04/06/18): - Probable chronic ileus and most likely gastroenteritis with fluid levels within loops of small bowel not particularly dilated. - Otherwise chronic changes not significantly changed. - Antiemetics PRN. She has been on Reglan, Phenergan and Compazine without much improvement in the N/V - Add Kytril 1mg Q12H scheduled for now - Consult GI - Consult Heme/Onc, Dr. Choi. Pt is following with Oncology at [facility] as well. - Pain control PRN - Liquid diet as tolerated (2) Mucinous adenocarcinoma of appendix Code(s): C18.1 - Malignant neoplasm of appendix Status: Acute - Plan Patient examined. Assessment and plan formulated with Bee Roberto PA-C. I agree with the above.
[2018-04-07] MEDS ORDERED: HYDROmorphone PF Inj 2 MG/ML Vial IV.PUSH PRN (15:30)
[2018-04-07] MEDS ORDERED: Granisetron 1 MG/ML Vial IV.PUSH SCH (16:17)
--- NOTE | 2018-04-07 17:09 | P.CONGI ---
History of Present Illness Consult date: 04/07/18 Consult reason: Nausea and vomiting, diarrhea, ileus Chief complaint: AFIB RVR, N/V, ABDOMINAL PAIN, HYPOK History of Present Illness: This is a borderline frail 73-year-old female who entered the hospital on 2017 with symptoms of uncontrolled and unresolved nausea and vomiting, diarrhea uncontrolled greater than 5 times a day. onset of symptoms have been worsened over the past 4 days to the point that patient could not tolerate any topical liquids pills or food. Patient is currently very pale and oral cavity is very dry. Patient notes no obvious bleeding no hematemesis and no obvious blood in the stools current hemoglobin 14.8, platelet count 163, WBC count 9.3. 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 She has been on multiple chemotherapy medications which is likely playing a big factor in her GI symptoms. Patient also has become dehydrated and had new onset of atrial fibrillation but heart rate is now controlled in the 60s and 70s with metoprolol and patient is not on any IV drips. Patient has had colonoscopy was Dr. Buchanan back in 2016 with polyps removed, no previous endoscopy. Bilirubin and LFTs are normal, C. difficile is negative. 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 Gastroenterology was consulted to assist with her symptoms and plan of care. <Isabel Krishnamurthy - Last Filed: 04/07/18 16:53> Review of Systems All other systems reviewed negative except as stated in HPI <Isabel Krishnamurthy - Last Filed: 04/07/18 16:53> PMFSH - History History Provided By: Patient, Family Member - Medical History Medical History: Medical History (Last Updated 04/05/18 @ 22:10 by Faith Cam) Cancer of appendix Esophageal stricture H/O: hysterectomy High cholesterol Neuropathy Osteopenia - Surgical History Surgical History: Surgical History (Last Updated 04/05/18 @ 22:10 by Faith Cam) History of appendectomy Hx of salpingo-oophorectomy, bilateral - Tobacco History Second Hand Smoke Exposure: No Smoking Status: Never smoker - Alcohol History How Often Do You Have a Drink Containing Alcohol: Never - Substance Use History Substance History: No History of Abuse - Travel History Recent Travel in the [place] Within the Last 8 Weeks: No Recent Travel Out of the Country Within the Last 8 Weeks: No - Immunization History Tetanus Immunization: <5 Years Hx Influenza Vaccine This Season: Yes <Isabel Krishnamurthy - Last Filed: 04/07/18 16:53> - Medical History Medical History: Medical History (Last Updated 04/05/18 @ 22:10 by Faith Cam) Cancer of appendix Esophageal stricture H/O: hysterectomy High cholesterol Neuropathy Osteopenia - Surgical History Surgical History: Surgical History (Last Updated 04/05/18 @ 22:10 by Faith Cam) History of appendectomy Hx of salpingo-oophorectomy, bilateral <Joe Mello - Last Filed: 04/07/18 18:22> Medications and Allergies Active Medications: Active Medications Acetaminophen (Tylenol) 650 mg PO Q4H PRN PRN Reason: pain 1-10,fever Hydrocodone Bitart/Acetaminophen (Henderson 5/325) 1 tab PO Q4H PRN PRN Reason: pain 3-10 Last Admin: 04/07/18 10:10 Dose: 1 tab Diphenoxylate HCl/Atropine (Lomotil) 1 tab PO Q6H PRN PRN Reason: DIARRHEA Last Admin: 04/07/18 13:40 Dose: 1 tab Granisetron HCl (Kytril Inj) 1 mg IV.PUSH Q12H [facility] Hydromorphone HCl (Dilaudid Pf Inj) 0.5 mg IV.PUSH Q4H PRN PRN Reason: breakthrough pain Diltiazem HCl 125 mg/ Sodium (Chloride) 125 mls @ 5 mls/hr IV.CONT TITRATE PRN ; Protocol PRN Reason: Per Protocol Last Titration: 04/06/18 10:00 Dose: 0 mg/hr, 0 mls/hr Potassium Chloride 10 meq/ (Sodium Chloride) 1,005 mls @ 84 mls/hr IV.CONT .[id number] [facility] Last Admin: 04/07/18 11:21 Dose: 84 mls/hr Metoclopramide HCl (Reglan Inj) 5 mg IV.PUSH Q8HR [facility]; Protocol Last Admin: 04/07/18 13:40 Dose: 5 mg Metoprolol Tartrate (Lopressor) 25 mg PO BID [facility] Last Admin: 04/07/18 10:10 Dose: 25 mg Ondansetron HCl (Zofran Inj) 4 mg IV.PUSH Q4H PRN PRN Reason: n/v Pantoprazole Sodium (Protonix Inj) 40 mg IV.PUSH Q12H [facility] Prochlorperazine Edisylate (Compazine Inj) 10 mg IV.PUSH Q6H PRN PRN Reason: n/v Last Admin: 04/07/18 14:18 Dose: 10 mg Promethazine HCl (Phenergan Supp) 25 mg RECTAL Q6H PRN PRN Reason: NAUSEA/VOMITING Last Admin: 04/07/18 15:25 Dose: 25 mg Sodium Chloride (Ns Flush) 2 ml IV.FLUSH PRN PRN PRN Reason: FLUSH AFTER USING IV ACCESS Last Admin: 04/05/18 20:26 Dose: 2 ml Temazepam (Restoril) 15 mg PO HS PRN PRN Reason: INSOMNIA <Isabel Krishnamurthy - Last Filed: 04/07/18 16:53> Active Medications: Active Medications Acetaminophen (Tylenol) 650 mg PO Q4H PRN PRN Reason: pain 1-10,fever Hydrocodone Bitart/Acetaminophen (Henderson 5/325) 1 tab PO Q4H PRN PRN Reason: pain 3-10 Last Admin: 04/07/18 10:10 Dose: 1 tab Diphenoxylate HCl/Atropine (Lomotil) 1 tab PO Q6H PRN PRN Reason: DIARRHEA Last Admin: 04/07/18 13:40 Dose: 1 tab Granisetron HCl (Kytril Inj) 1 mg IV.PUSH UNSCH X1 PRN PRN Reason: SEE LABEL COMMENTS Stop: 04/07/18 23:59 Hydromorphone HCl (Dilaudid Pf Inj) 0.5 mg IV.PUSH Q4H PRN PRN Reason: breakthrough pain Diltiazem HCl 125 mg/ Sodium (Chloride) 125 mls @ 5 mls/hr IV.CONT TITRATE PRN ; Protocol PRN Reason: Per Protocol Last Titration: 04/06/18 10:00 Dose: 0 mg/hr, 0 mls/hr Potassium Chloride 10 meq/ (Sodium Chloride) 1,005 mls @ 84 mls/hr IV.CONT .[id number] [facility] Last Admin: 04/07/18 11:21 Dose: 84 mls/hr Metoclopramide HCl (Reglan Inj) 5 mg IV.PUSH Q8HR [facility]; Protocol Last Admin: 04/07/18 13:40 Dose: 5 mg Metoprolol Tartrate (Lopressor) 25 mg PO BID [facility] Last Admin: 04/07/18 10:10 Dose: 25 mg Ondansetron HCl (Zofran Inj) 4 mg IV.PUSH Q4H PRN PRN Reason: n/v Pantoprazole Sodium (Protonix Inj) 40 mg IV.PUSH Q12H [facility] Last Admin: 04/07/18 18:15 Dose: 40 mg Prochlorperazine Edisylate (Compazine Inj) 10 mg IV.PUSH Q6H PRN PRN Reason: n/v Last Admin: 04/07/18 14:18 Dose: 10 mg Promethazine HCl (Phenergan Supp) 25 mg RECTAL Q6H PRN PRN Reason: NAUSEA/VOMITING Last Admin: 04/07/18 15:25 Dose: 25 mg Sodium Chloride (Ns Flush) 2 ml IV.FLUSH PRN PRN PRN Reason: FLUSH AFTER USING IV ACCESS Last Admin: 04/05/18 20:26 Dose: 2 ml Temazepam (Restoril) 15 mg PO HS PRN PRN Reason: INSOMNIA <Joe Mello - Last Filed: 04/07/18 18:22> Allergies Allergy/AdvReac Type Severity Reaction Status Date / Time No Known Allergies Allergy Unknown Uncoded 12/13/17 07:07 Home Medications Medication Instructions Recorded Confirmed Type atorvastatin 10 mg PO DAILY 04/05/18 04/05/18 History capecitabine See Label Instructions .ROUTE 04/05/18 04/05/18 History .COMPLEX ondansetron HCl [Zofran] 4 mg PO TID PRN 04/05/18 04/05/18 History oxaliplatin See Label Instructions .ROUTE 04/05/18 04/06/18 History .COMPLEX prochlorperazine maleate 5 mg PO Q6-8H PRN 04/05/18 04/05/18 History Exam Vital signs: Vital Signs 04/06/18 20:00 04/06/18 20:49 04/07/18 00:00 Temperature 99.2 F 99.7 F H Pulse Rate 93 H 73 Respiratory Rate 16 16 Blood Pressure 156/94 H 111/60 Pulse Oximetry 99 95 99 04/07/18 04:00 04/07/18 07:01 04/07/18 09:20 Temperature 99.1 F 98.6 F Pulse Rate 75 71 79 Respiratory Rate 16 18 Blood Pressure 116/74 132/78 Pulse Oximetry 96 96 04/07/18 10:53 04/07/18 11:00 04/07/18 11:28 Temperature 97.8 F Pulse Rate 68 68 Respiratory Rate 15 Blood Pressure 119/76 Pulse Oximetry 96 97 04/07/18 15:00 04/07/18 15:22 Temperature 98.1 F Pulse Rate 68 74 Respiratory Rate 16 Blood Pressure 117/69 Pulse Oximetry 97 Intake & Output 04/06/18 04/07/18 04/07/18 18:59 06:59 18:59 Intake Total 2065 / 2065 1105 / 1105 1005 / 1005 Output Total 200 / 200 400 / 400 Balance 1865 / 1865 705 / 705 1005 / 1005 Weight 53.9 kg Intake: IV 1065 / 1065 1105 / 1105 1005 / 1005 KCl Inj 10 MEQ In NS Inj 1,000 1005 / 1005 1005 / 1005 1005 / 1005 ML @ 84 mls/hr IV.CONT .[id number] [facility] Rx#:[id number] Cardizem Inj 125 MG In NS Inj 60 / 60 100 ML @ 5 MG/HR 5 mls/hr IV. CONT TITRATE PRN Rx#:[id number] Ofirmev Inj 1,000 mg In 100 ml 100 / 100 @ 400 mls/hr IV.SIG ONCE ONE Rx #:[id number] Oral 1000 / 1000 Output: Urine 200 / 200 400 / 400 Other: # Voids 4 Date of Last Bowel Movement 04/06/18 04/07/18 04/07/18 # Bowel Movements 6 3 - Constitutional moderate distress, thin, cachectic, chronically ill appearing, cooperative - Routine HEENT Exam Head: Present: normocephalic ENT: Present: mucous membranes dry - Routine Neck Exam Present: supple - Routine Respiratory Exam Present: accessory muscle use (No obvious wheezing or rhonchi or shortness of breath) - Routine Cardiovascular Exam Present: S1, S2 - Routine Abdominal Exam Present: soft (Regular), normoactive bowel sounds, tenderness (Mild tenderness and cramping in the lower abdomen), distended (No obvious distention) - Routine Skin Exam Present: intact, dry, pallor <Isabel Krishnamurthy - Last Filed: 04/07/18 16:53> Vital signs: Vital Signs 04/06/18 20:00 04/06/18 20:49 04/07/18 00:00 Temperature 99.2 F 99.7 F H Pulse Rate 93 H 73 Respiratory Rate 16 16 Blood Pressure 156/94 H 111/60 Pulse Oximetry 99 95 99 04/07/18 04:00 04/07/18 07:01 04/07/18 09:20 Temperature 99.1 F 98.6 F Pulse Rate 75 71 79 Respiratory Rate 16 18 Blood Pressure 116/74 132/78 Pulse Oximetry 96 96 04/07/18 10:53 04/07/18 11:00 04/07/18 11:28 Temperature 97.8 F Pulse Rate 68 68 Respiratory Rate 15 Blood Pressure 119/76 Pulse Oximetry 96 97 04/07/18 15:00 04/07/18 15:22 Temperature 98.1 F Pulse Rate 68 74 Respiratory Rate 16 Blood Pressure 117/69 Pulse Oximetry 97 Intake & Output 04/06/18 04/07/18 04/07/18 18:59 06:59 18:59 Intake Total 2065 / 2065 1105 / 1105 1005 / 1005 Output Total 200 / 200 400 / 400 Balance 1865 / 1865 705 / 705 1005 / 1005 Weight 53.9 kg Intake: IV 1065 / 1065 1105 / 1105 1005 / 1005 KCl Inj 10 MEQ In NS Inj 1,000 1005 / 1005 1005 / 1005 1005 / 1005 ML @ 84 mls/hr IV.CONT .[id number] [facility] Rx#:[id number] Cardizem Inj 125 MG In NS Inj 60 / 60 100 ML @ 5 MG/HR 5 mls/hr IV. CONT TITRATE PRN Rx#:[id number] Ofirmev Inj 1,000 mg In 100 ml 100 / 100 @ 400 mls/hr IV.SIG ONCE ONE Rx #:[id number] Oral 1000 / 1000 Output: Urine 200 / 200 400 / 400 Other: # Voids 4 Date of Last Bowel Movement 04/06/18 04/07/18 04/07/18 # Bowel Movements 6 3 <Joe Mello - Last Filed: 04/07/18 18:22> Results - Labs CBC & Chem 7: 04/05/18 19:40 04/07/18 06:09 Labs: Laboratory Results - last 24 hr 04/07/18 06:09 Sodium 137 Potassium 3.4 L Chloride 109 H Carbon Dioxide 17.7 L Anion Gap 10 BUN 8 Creatinine 0.58 Estimated GFR Greater than 89 Random Glucose 109 H Calcium 8.3 L Magnesium 1.6 - Imaging Impressions Abdomen/Pelvis CT 04/06/18 00:00 CONCLUSION: 1. Probable chronic ileus and most likely gastroenteritis with fluid levels within loops of small bowel not particularly dilated. 2. Otherwise chronic changes not significantly changed. <Isabel Krishnamurthy - Last Filed: 04/07/18 16:53> - Labs CBC & Chem 7: 04/05/18 19:40 04/07/18 06:09 Labs: Laboratory Results - last 24 hr 04/07/18 06:09 Sodium 137 Potassium 3.4 L Chloride 109 H Carbon Dioxide 17.7 L Anion Gap 10 BUN 8 Creatinine 0.58 Estimated GFR Greater than 89 Random Glucose 109 H Calcium 8.3 L Magnesium 1.6 - Imaging Impressions Abdomen/Pelvis CT 04/06/18 00:00 CONCLUSION: 1. Probable chronic ileus and most likely gastroenteritis with fluid levels within loops of small bowel not particularly dilated. 2. Otherwise chronic changes not significantly changed. <Joe Mello - Last Filed: 04/07/18 18:22> Assessment and Plan - Plan 73-year-old female who entered the hospital on 04/05/2018 with symptoms of uncontrolled and unresolved nausea and vomiting, diarrhea once a day. onset of symptoms have been worsened over the past 4 days to the point that patient could not tolerate any topical liquids pills or food. Patient notes no obvious bleeding no hematemesis and no obvious blood in the stools current hemoglobin 14.8, platelet count 163, WBC count 9.3. 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 She has been on multiple chemotherapy medications which is likely playing a big factor in her GI symptoms. 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 patient also has become dehydrated and had new onset of atrial fibrillation but heart rate is now controlled in the 60s and 70s with metoprolol and patient is not on any IV drips. Patient has had colonoscopy was Dr. Buchanan back in 2016 with polyps removed, no previous endoscopy. Bilirubin and LFTs are normal, C. difficile is negative. 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 Gastroenterology was consulted to assist with her symptoms and plan of care. Discussed with patient different options to evaluate this uncontrolled nausea and vomiting including EGD, versus medical management and continuing her IV hydration. Patient is wanting to try medical management first and is currently wanting to hold off on EGD ER any further GI testing. Thank you for this consult we will continue to follow her and her symptoms. Plan Diet per attending as tolerated Started Protonix 40 mg IV every 12 Antiemetics Continue IV fluids Oral care for moistening as patient can tolerate Stool studies Supportive care Further recommendations to follow Patient was seen per myself and Dr. Mello, note was written on his behalf <Isabel Krishnamurthy - Last Filed: 04/07/18 16:53> - Plan Seen and examined with [employer], worsening N/V and diarrhea. C. diff -ve. remainder of stool studies-p. CT without oral contrast non specific. Add Dexamethasone 8mg ivp x one today. If stool studies -ve may consider continuing Q 6 hours. Possible egd/colonoscopy depending upon clinical course. Discusse max pt and daughter in the room. Thank you <Joe Mello - Last Filed: 04/07/18 18:22>
[2018-04-07] MEDS ORDERED: Granisetron 1 MG/ML Vial IV.PUSH PRN (17:29)
[2018-04-07] MEDS: Pantoprazole Inj 40 MG Vial IV.PUSH SCH (18:15)
[2018-04-08] MEDS: Pantoprazole Inj 40 MG Vial IV.PUSH SCH ×2 (04:22→16:08)
[2018-04-08 08:11] LABS: Hematocrit 38.8 % (35.0-46.0); Hemoglobin 13.1 gm/dL (11.6-15.3); Mean Corpuscular HGB Conc 33.7 % (32.0-36.0); Mean Corpuscular Hemoglobin 33.9 pg (27.0-34.0); Mean Corpuscular Volume 100.3 fL (80.0-100.0); Mean Platelet Volume 8.1 fL (7.0-11.0); Platelet Count 144 th/mm3 (150-450); Red Blood Count 3.87 mil/mm3 (4.00-5.30); Red Cell Distribution Width 20.7 % (11.6-17.2); White Blood Count 6.7 th/mm3 (4.0-11.0)
[2018-04-08 08:41] LABS: Anion Gap 10 meq/L (5-15); Blood Urea Nitrogen 11 mg/dL (7-18); Calcium 8.6 mg/dL (8.5-10.1); Carbon Dioxide 17.5 meq/L (21.0-32.0); Chloride 114 meq/L (98-107); Glomerular Filtration Rate Greater Than 89 mL/min (>89); Glucose,Random 103 mg/dL (74-106); Potassium 3.1 meq/L (3.5-5.1); Sodium 141 meq/L (136-145)
[2018-04-08 09:05] LABS: Lymphocytes 12 % (9-44); Metamyelocytes 1 % (0-1); Monocytes 20 % (0-8)
[2018-04-08 09:11] LABS: Platelet Morphology Normal (Normal); Toxic Granulation 1+
[2018-04-08] MEDS: Metoprolol Tartrate 25 MG Tablet PO SCH ×2 (09:29→21:42)
[2018-04-08] MEDS ORDERED: Sodium Chloride 0.9% 2 ML Flush PRN IV.FLUSH (09:32)
[2018-04-08] MEDS: Potassium Chloride Inj 10 MEQ in Sod Chloride 0.9% Inj 1,000 ML IV.CONT SCH ×2 (10:36→22:38)
[2018-04-08] MEDS: Diphenoxylate/Atropine 2.5/0.025 MG Tablet PO PRN (10:37)
--- NOTE | 2018-04-08 14:31 | P.PNIM ---
Subjective Interval history: Less nauseated today. Physical Exam Vital signs: 04/08/18 09:24 04/08/18 11:00 04/08/18 12:20 Temperature 97.5 F L 98.2 F Pulse Rate 69 67 68 Respiratory Rate 16 16 Blood Pressure 107/73 107/73 Pulse Oximetry 98 98 Narrative: GENERAL: This is a well-nourished, well-developed patient, in no apparent distress. CARDIOVASCULAR: Regular rate and rhythm without murmurs, gallops, or rubs. RESPIRATORY: Clear to auscultation. Breath sounds equal bilaterally. No wheezes , rales, or rhonchi. GASTROINTESTINAL: Abdomen soft, non-tender, nondistended. Normal active bowel sounds MUSCULOSKELETAL: Extremities without clubbing, cyanosis, or edema. NEURO: Alert & Oriented x4 to person, place, time, situation. Moves all ext x4 Results - Labs CBC & Chem 7: 04/12/18 05:40 04/13/18 05:20 Microbiology 04/08/18 01:01 Stool Cryptosporidium Antigen - Final Negative - No Cryptosporicium antigen detected In selected cases of patients with a history of immunosuppression or foreign travel, a full ova and parasites examination may be desired. Contact the microbiology lab if full workup is indicated and subit another specimen for testing. 04/08/18 01:01 Stool Giardia Antigen (CUAUHTEMOC) - Final Negative - No Giardia Antigen detected In selected cases of patients with a history of immunosuppression or foreign travel, a full ova and parasites examination may be desired. Contact the microbiology lab if full workup is indicated and subit another specimen for testing. 04/08/18 01:01 Stool Stool for WBCs - Final Few WBC's 04/06/18 13:00 Stool Enteric Pathogens (PCR) - Final No enteric pathogens detected by PCR (No Salmonella sp., Shigella sp., Campylobacter sp., Yersinia enterocolitica, Vibrio sp., Norovirus, or EHEC (Shiga Toxin 1 or Shiga Toxin 2) detected. - Procedures 2D echo(04/07/18): - Estimated ejection fraction in the range of 65-70%. - The left atrial size is moderately dilated. - Mild aortic valve regurgitation. - There is mild tricuspid valve regurgitation. - Estimated RSVP is 36 mmHg - ICV is normal size with greater than 50% collapse with inspiration. Assessment and Plan - Assessment (1) Atrial fibrillation with RVR Code(s): I48.91 - Unspecified atrial fibrillation Status: Acute Plan: A. 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 On December 13 pt was seen by Dr King and Polo. She had a right ovarian mass with torsion, significant intraperitoneal adhesions and intraperitoneal seeding. Pt underwent robotic-assisted laparoscopic hysterectomy, bilateral salpingo- oophorectomy (with resection of approximately 14 cm torsed right ovarian mass), extensive lysis of adhesions and right hemicolectomy performed. Pathology revealed features of mucinous adenocarcinoma. Pt went to [place] to see establish oncology care. - Over past 3months pt reports being treated with Capacitabine 2wk on/1wk off and this past Saturday was her fourth round of Oxaliplatin. She reports that she is scheduled for Hipec surgery on April 28 per her report. - Pt was developing diarrhea with this treatment and she has had n/v since with abdomen cramps and diarrhea. - Pt presented to the ED on 04/05 with dehydration and was found to have new A.fib/RVR. - Pt was started on IV Cardizem gtt and then weaned off of it. - Pt was started on Metoprolol 25mg po bid. Pt has remained in NSR. Ambulate to assess rate control - 2D echo (04/07/18): - Estimated ejection fraction in the range of 65-70%. - LA is moderately dilated. - Mild aortic valve regurgitation. - Mild tricuspid valve regurgitation. - Estimated RSVP is 36 mmHg - ICV is normal size with greater than 50% collapse with inspiration. - Cont telemetry. - Stool studies were cdiff neg. - Stool for enteric pathogens is pending. - Lomotil PRN - CT Abd/pelvis (04/06/18): - Probable chronic ileus and most likely gastroenteritis with fluid levels within loops of small bowel not particularly dilated. - Otherwise chronic changes not significantly changed. - Antiemetics PRN. She has been on Reglan, Phenergan and Compazine without much improvement in the N/V - Kytril 1mg Q12H scheduled for now - appreciate input from GI - Case d/w Dr. Choi (04/08). Pt was sedated yesterday from her antiemetics. Dr. Choi will come by again today. - Pt less nauseated today. - Pt continues to have diarrhea & given lomotil - I left message from Dr. Metz (04/08) to call me to review pt's case - Pain control PRN - Liquid diet as tolerated (2) Mucinous adenocarcinoma of appendix Code(s): C18.1 - Malignant neoplasm of appendix Status: Acute
--- NOTE | 2018-04-08 15:57 | P.PNGI ---
Subjective Interval history: Sitting up in the bed feeling so much better denies any nausea vomiting or abdominal pain family member present <Isabel Krishnamurthy - Last Filed: 04/08/18 15:53> Physical Exam Vital signs: Vital Signs 04/07/18 20:00 04/08/18 00:00 04/08/18 04:00 Temperature 98.6 F 97.9 F 98.5 F Pulse Rate 88 76 75 Respiratory Rate 16 16 16 Blood Pressure 114/75 103/69 123/68 Pulse Oximetry 95 97 04/08/18 07:00 04/08/18 09:24 04/08/18 11:00 Temperature 97.5 F L Pulse Rate 83 69 67 Respiratory Rate 16 Blood Pressure 107/73 Pulse Oximetry 98 04/08/18 12:20 04/08/18 15:26 Temperature 98.2 F 97.8 F Pulse Rate 68 72 Respiratory Rate 16 16 Blood Pressure 107/73 115/72 Pulse Oximetry 98 98 Intake & Output 04/07/18 04/08/18 04/08/18 18:59 06:59 18:59 Intake Total 1125 / 1125 1005 / 1005 1005 / 1005 Output Total 200 / 200 Balance 1125 / 1125 805 / 805 1005 / 1005 Weight 53.9 kg 53.1 kg Intake: IV 1005 / 1005 1005 / 1005 1005 / 1005 KCl Inj 10 MEQ In NS Inj 1,000 1005 / 1005 1005 / 1005 1005 / 1005 ML @ 84 mls/hr IV.CONT .[id number] [facility] Rx#:[id number] Oral 120 / 120 Output: Urine 200 / 200 Other: # Voids 5 Date of Last Bowel Movement 04/07/18 04/07/18 04/08/18 # Bowel Movements 5 2 # Emeses 3 - Constitutional no acute distress, thin, cooperative - Routine HEENT Exam ENT: Present: mucous membranes dry - Routine Respiratory Exam Present: accessory muscle use (No obvious shortness of breath or wheezing) - Routine Cardiovascular Exam Present: S1, S2 - Routine Abdominal Exam Present: soft (Round, soft, no obvious abdominal pain to light palpation, bowel sounds soft) - Routine Skin Exam Present: intact, pallor (But much improved) <Isabel Krishnamurthy - Last Filed: 04/08/18 15:53> Vital signs: Vital Signs 04/07/18 20:00 04/08/18 00:00 04/08/18 04:00 Temperature 98.6 F 97.9 F 98.5 F Pulse Rate 88 76 75 Respiratory Rate 16 16 16 Blood Pressure 114/75 103/69 123/68 Pulse Oximetry 95 97 04/08/18 07:00 04/08/18 09:24 04/08/18 11:00 Temperature 97.5 F L Pulse Rate 83 69 67 Respiratory Rate 16 Blood Pressure 107/73 Pulse Oximetry 98 04/08/18 12:20 04/08/18 15:26 04/08/18 16:00 Temperature 98.2 F 97.8 F Pulse Rate 68 72 81 Respiratory Rate 16 16 Blood Pressure 107/73 115/72 Pulse Oximetry 98 98 04/08/18 16:58 Temperature Pulse Rate Respiratory Rate Blood Pressure Pulse Oximetry 98 Intake & Output 04/07/18 04/08/18 04/08/18 18:59 06:59 18:59 Intake Total 1125 / 1125 1005 / 1005 1005 / 1005 Output Total 200 / 200 Balance 1125 / 1125 805 / 805 1005 / 1005 Weight 53.9 kg 53.1 kg Intake: IV 1005 / 1005 1005 / 1005 1005 / 1005 KCl Inj 10 MEQ In NS Inj 1,000 1005 / 1005 1005 / 1005 1005 / 1005 ML @ 84 mls/hr IV.CONT .[id number] [facility] Rx#:[id number] Oral 120 / 120 Output: Urine 200 / 200 Other: # Voids 5 Date of Last Bowel Movement 04/07/18 04/07/18 04/08/18 # Bowel Movements 5 2 # Emeses 3 <Joe Mello - Last Filed: 04/08/18 17:58> Results - Labs CBC & Chem 7: 04/08/18 07:22 04/08/18 07:22 Laboratory Results - last 24 hr 04/08/18 04/08/18 07:22 07:22 WBC 6.7 RBC 3.87 L Hgb 13.1 Hct 38.8 MCV 100.3 H MCH 33.9 MCHC 33.7 RDW 20.7 H Plt Count 144 L MPV 8.1 Prelim Diff (Auto) Manual diff required WBC Differential Manual diff final Seg Neuts % (Manual) 22 Band Neuts % (Manual) 45 H Lymphocytes % (Manual) 12 Monocytes % (Manual) 20 H Metamyelocytes % (Man) 1 Abs Neuts (Manual) 4.6 Differential Comment . Toxic Granulation 1+ H Platelet Estimate Low L Platelet Morphology Normal Sodium 141 Potassium 3.1 L Chloride 114 H Carbon Dioxide 17.5 L Anion Gap 10 BUN 11 Creatinine 0.54 Estimated GFR Greater than 89 Random Glucose 103 Calcium 8.6 Microbiology 04/08/18 01:01 Stool Cryptosporidium Antigen - Final Negative - No Cryptosporicium antigen detected In selected cases of patients with a history of immunosuppression or foreign travel, a full ova and parasites examination may be desired. Contact the microbiology lab if full workup is indicated and subit another specimen for testing. 04/08/18 01:01 Stool Giardia Antigen (CUAUHTMEOC) - Final Negative - No Giardia Antigen detected In selected cases of patients with a history of immunosuppression or foreign travel, a full ova and parasites examination may be desired. Contact the microbiology lab if full workup is indicated and subit another specimen for testing. 04/08/18 01:01 Stool Stool for WBCs - Final Few WBC's 04/06/18 13:00 Stool Enteric Pathogens (PCR) - Final No enteric pathogens detected by PCR (No Salmonella sp., Shigella sp., Campylobacter sp., Yersinia enterocolitica, Vibrio sp., Norovirus, or EHEC (Shiga Toxin 1 or Shiga Toxin 2) detected. - Procedures 2D echo(04/07/18): - Estimated ejection fraction in the range of 65-70%. - The left atrial size is moderately dilated. - Mild aortic valve regurgitation. - There is mild tricuspid valve regurgitation. - Estimated RSVP is 36 mmHg - ICV is normal size with greater than 50% collapse with inspiration. <Isabel Krishnamurthy - Last Filed: 04/08/18 15:53> - Labs CBC & Chem 7: 04/08/18 07:22 04/08/18 07:22 Laboratory Results - last 24 hr 04/08/18 04/08/18 07:22 07:22 WBC 6.7 RBC 3.87 L Hgb 13.1 Hct 38.8 MCV 100.3 H MCH 33.9 MCHC 33.7 RDW 20.7 H Plt Count 144 L MPV 8.1 Prelim Diff (Auto) Manual diff required WBC Differential Manual diff final Seg Neuts % (Manual) 22 Band Neuts % (Manual) 45 H Lymphocytes % (Manual) 12 Monocytes % (Manual) 20 H Metamyelocytes % (Man) 1 Abs Neuts (Manual) 4.6 Differential Comment . Toxic Granulation 1+ H Platelet Estimate Low L Platelet Morphology Normal Sodium 141 Potassium 3.1 L Chloride 114 H Carbon Dioxide 17.5 L Anion Gap 10 BUN 11 Creatinine 0.54 Estimated GFR Greater than 89 Random Glucose 103 Calcium 8.6 Microbiology 04/08/18 01:01 Stool Cryptosporidium Antigen - Final Negative - No Cryptosporicium antigen detected In selected cases of patients with a history of immunosuppression or foreign travel, a full ova and parasites examination may be desired. Contact the microbiology lab if full workup is indicated and subit another specimen for testing. 04/08/18 01:01 Stool Giardia Antigen (CUAUHTEMOC) - Final Negative - No Giardia Antigen detected In selected cases of patients with a history of immunosuppression or foreign travel, a full ova and parasites examination may be desired. Contact the microbiology lab if full workup is indicated and subit another specimen for testing. 04/08/18 01:01 Stool Stool for WBCs - Final Few WBC's 04/06/18 13:00 Stool Enteric Pathogens (PCR) - Final No enteric pathogens detected by PCR (No Salmonella sp., Shigella sp., Campylobacter sp., Yersinia enterocolitica, Vibrio sp., Norovirus, or EHEC (Shiga Toxin 1 or Shiga Toxin 2) detected. <Joe Mello - Last Filed: 04/08/18 17:58> Assessment and Plan - Plan 73-year-old female who entered the hospital on 04/05/2018 with symptoms of uncontrolled and unresolved nausea and vomiting, diarrhea once a day. onset of symptoms have been worsened over the past 4 days to the point that patient could not tolerate any topical liquids pills or food. Patient notes no obvious bleeding no hematemesis and no obvious blood in the stools current hemoglobin 14.8, platelet count 163, WBC count 9.3. 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 She has been on multiple chemotherapy medications which is likely playing a big factor in her GI symptoms. 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 patient also has become dehydrated and had new onset of atrial fibrillation but heart rate is now controlled in the 60s and 70s with metoprolol and patient is not on any IV drips. Patient has had colonoscopy was Dr. Buchanan back in 2015 with polyps removed, no previous endoscopy. Bilirubin and LFTs are normal, C. difficile is negative. CT scan shows probable chronic ileus and most likely race steward with fluid levels within loops of small bowel not particularly dilated otherwise chronic changes. Gastroenterology was consulted to assist with her symptoms and plan of care. Discussed with patient different options to evaluate this uncontrolled nausea and vomiting including EGD, versus medical management and continuing her IV hydration. Patient is wanting to try medical management first and is currently wanting to hold off on EGD ER any further GI testing. Thank you for this consult we will continue to follow her and her symptom 04/08/2018 patient is sitting up in the bed, and has made a improvement over the past 24 hours without any further nausea or vomiting. Patient has pink color to her face and feels she is back to her baseline. Patient is noting some loose stools since the IV Reglan has been given and is currently requesting to not take the med. Supportive care given, discussed again any needs for EGD colonoscopy to reevaluate but patient states that she wants to hold off on any further GI testing and will follow-up in the office with Dr. Buchanan. Current hemoglobin 13.1 GI will sign off Plan Diet as tolerated PPI p.o. Encouraged slow feedings and chewing food well avoid eating late at night Oral care for moistening as patient can tolerate Monitor labs Supportive care Patient was seen per myself and Dr. Mello, note was written on his behalf <Isabel Krishnamurthy - Last Filed: 04/08/18 15:53> - Plan Seen and examined with MAINTENANCE ADVISOR, doing better today after decadron infusions. GI will sign off. Thank you The exam, history, and the medical decision-making described in the above note were completed with the assistance of the mid-level provider. I reviewed and agree with the findings presented. I attest that I had a [id number] encounter with the patient on the same day, and personally performed and documented my assessment and findings in the medical record. <Joe Mello - Last Filed: 04/08/18 17:58>
--- NOTE | 2018-04-08 20:19 | MB ---
cc: Ngozi Choi MD DATE: 04/08/2018 CHIEF COMPLAINT: 1. 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 2. Ileus. 3. Chemotherapy. HISTORY OF PRESENT ILLNESS: Ms. Moya is a 73-year-old lady with a history of hyperlipidemia, who was admitted to the hospital with dehydration and diarrhea. She has a diagnosis of mucinous adenocarcinoma of appendiceal origin. On 12/13/2017, she was seen by Dr. King and Dr. Cuellar and she underwent right ovarian mass with torsion, significant intraperitoneal adhesions and intraperitoneal seeding. She had robotic-assisted laparoscopic hysterectomy, bilateral salpingo-oophorectomy with resection of approximately 14 cm torsed right ovarian mass with extensive lysis of adhesions and right hemicolectomy performed. She has established care at [facility], and she has been treated with 4 cycles of capecitabine and oxaliplatin. She is on capecitabine 2 weeks on and 1 week off and oxaliplatin every 3 weeks. She reports that her last dose of oxaliplatin was last Saturday. She reports that for 1 week after she receives oxaliplatin, she has abdominal cramping, diarrhea and extreme cold sensitivity. Leading up to her hospitalization, she had diarrhea, nausea, vomiting and abdominal pain. Upon presentation to the emergency room, she was found to have atrial fibrillation with rapid ventricular response. This is well controlled and the cardiology team is following her. Imaging studies with evidence of chronic ileus, gastroenteritis with fluid levels within loops of small bowel, not particularly dilated, echocardiogram with ejection fraction in the range of 65-70%. GI team has been following; however, with improvement in symptoms, they had signed off. REVIEW OF SYSTEMS: As above in HPI, all others negative. PAST MEDICAL HISTORY: 1. Mucinous adenocarcinoma of appendicial origin. 2. Hyperlipidemia. FAMILY HISTORY: Significant for cardiac disease. Sister with breast cancer. SOCIAL HISTORY: Good family support system. Occasional social alcohol use. No tobacco use. PAST SURGICAL HISTORY: Hysterectomy, salpingo-oophorectomy, appendectomy. HOSPITAL MEDICATIONS: 1. Tylenol. 2. Dexamethasone. 3. Diltiazem. 4. Lomotil. 5. Kytril. 6. Reglan. 7. Zofran. 8. Potassium. 9. Phenergan. 10. Compazine. 11. Restoril. PHYSICAL EXAMINATION: VITAL SIGNS: Temperature 97.8, pulse 81, respiratory rate 16, blood pressure 115/72 and pulse oximetry 98% on room air. GENERAL: Thin lady in no distress, resting comfortably in bed. HEENT: Normocephalic, atraumatic. Eyes: PERRLA. EOMI. NECK: Supple. No palpable lymphadenopathy. CARDIOVASCULAR: Regular rate and rhythm. RESPIRATORY: Lungs clear to auscultation bilaterally. ABDOMEN: Soft, mild tenderness to palpation. EXTREMITIES: No edema. NEUROLOGIC: Grossly nonfocal. PSYCHIATRIC: Appropriate mood and affect. LABORATORY STUDIES: CBC: White blood cell count 6.7, hemoglobin 13.1, platelet count is 144,000. Chemistry studies with a creatinine of 0.54. Liver function tests on admission are within normal limits. ASSESSMENT AND PLAN: 1. Mucinous adenocarcinoma of appendiceal origin with evidence of omental disease. She is status post 4 cycles of capecitabine and oxaliplatin. She follows with an oncologist closely up at [facility]. On 04/28/2017, she is planned to undergo hipec surgery. 2. Ileus appears to be chronic, from imaging studies. She is passing gas and having bowel movements. 3. Diarrhea. This is greatly improving along with her other symptoms to include nausea and vomiting. Inpatient oncology team will continue to follow. MD MARIBEL Ann/janusz , 05:46 PM , 05:56 PM BASHIR
[2018-04-08] MEDS: Promethazine 25 MG Supp RECTAL PRN (21:39)
[2018-04-08] MEDS: Sodium Chloride 0.9% 2 ML Flush BID IV.FLUSH SCH (21:57)
[2018-04-09] MEDS ORDERED: Metoprolol Tartrate 25 MG Tablet PO ONE ×2 (01:02→12:30)
[2018-04-09] MEDS: Pantoprazole Inj 40 MG Vial IV.PUSH SCH ×2 (05:28→19:53)
[2018-04-09 07:37] LABS: Hematocrit 37.1 % (35.0-46.0); Hemoglobin 12.5 gm/dL (11.6-15.3); Mean Corpuscular HGB Conc 33.8 % (32.0-36.0); Mean Corpuscular Hemoglobin 33.6 pg (27.0-34.0); Mean Corpuscular Volume 99.5 fL (80.0-100.0); Platelet Count 138 th/mm3 (150-450); Red Blood Count 3.73 mil/mm3 (4.00-5.30); Red Cell Distribution Width 20.3 % (11.6-17.2)
[2018-04-09 08:22] LABS: Lymphocytes 13 % (9-44)
[2018-04-09 08:23] LABS: Metamyelocytes 2 % (0-1); Monocytes 22 % (0-8); Myelocytes 1 % (0-0)
[2018-04-09 08:24] LABS: Dohle Bodies Present; Platelet Morphology Normal (Normal); Spherocytes Occ; Toxic Granulation 2+
[2018-04-09 08:39] LABS: Anion Gap 11 meq/L (5-15); Blood Urea Nitrogen 12 mg/dL (7-18); Calcium 8.3 mg/dL (8.5-10.1); Carbon Dioxide 17.1 meq/L (21.0-32.0); Chloride 116 meq/L (98-107); Glomerular Filtration Rate Greater Than 89 mL/min (>89); Glucose,Random 82 mg/dL (74-106); Sodium 144 meq/L (136-145)
[2018-04-09] MEDS: Promethazine 25 MG Supp RECTAL PRN (09:27)
[2018-04-09 09:31] LABS: Potassium 2.9 meq/L (3.5-5.1)
[2018-04-09] MEDS ORDERED: Potassium Chloride 25 MEQ Effervescent Tablet PO ONE (11:00)
[2018-04-09] MEDS: Metoprolol Tartrate 25 MG Tablet PO SCH (11:13)
[2018-04-09] MEDS: Potassium Chlor 10 mEq Premix 10 MEQ/100 ML PIGGYBACK IV.SIG SCH ×5 (11:13→22:47)
[2018-04-09] MEDS: Potassium Chloride Inj 10 MEQ in Sod Chloride 0.9% Inj 1,000 ML IV.CONT SCH (11:13)
[2018-04-09] MEDS: Sodium Chloride 0.9% 2 ML Flush BID IV.FLUSH SCH ×2 (11:14→20:26)
[2018-04-09] MEDS: Diphenoxylate/Atropine 2.5/0.025 MG Tablet PO PRN (15:25)
--- NOTE | 2018-04-09 17:59 | P.PNIM ---
Subjective Interval history: pt c/o continued n/v/d today. Physical Exam Vital signs: 04/09/18 12:11 Temperature 98.0 F Pulse Rate 134 H Respiratory Rate 24 Blood Pressure 109/71 Pulse Oximetry 98 Narrative: GENERAL: This is a well-nourished, well-developed patient, in no apparent distress. CARDIOVASCULAR: Regular rate and rhythm without murmurs, gallops, or rubs. RESPIRATORY: Clear to auscultation. Breath sounds equal bilaterally. No wheezes , rales, or rhonchi. GASTROINTESTINAL: Abdomen soft, non-tender, nondistended. Normal active bowel sounds MUSCULOSKELETAL: Extremities without clubbing, cyanosis, or edema. NEURO: Alert & Oriented x4 to person, place, time, situation. Moves all ext x4 Results - Labs CBC & Chem 7: 04/12/18 05:40 04/13/18 05:20 - Procedures 2D echo(04/07/18): - Estimated ejection fraction in the range of 65-70%. - The left atrial size is moderately dilated. - Mild aortic valve regurgitation. - There is mild tricuspid valve regurgitation. - Estimated RSVP is 36 mmHg - ICV is normal size with greater than 50% collapse with inspiration. Assessment and Plan - Assessment (1) Atrial fibrillation with RVR Code(s): I48.91 - Unspecified atrial fibrillation Status: Acute Plan: A. 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 On December 13 pt was seen by Dr King and Polo. She had a right ovarian mass with torsion, significant intraperitoneal adhesions and intraperitoneal seeding. Pt underwent robotic-assisted laparoscopic hysterectomy, bilateral salpingo- oophorectomy (with resection of approximately 14 cm torsed right ovarian mass), extensive lysis of adhesions and right hemicolectomy performed. Pathology revealed features of mucinous adenocarcinoma. Pt went to [place] to see establish oncology care. - Over past 3months pt reports being treated with Capacitabine 2wk on/1wk off and this past Saturday was her fourth round of Oxaliplatin. She reports that she is scheduled for Hipec surgery on April 28 per her report. - Pt was developing diarrhea with this treatment and she has had n/v since with abdomen cramps and diarrhea. - Pt presented to the ED on 04/05 with dehydration and was found to have new A.fib/RVR. - Pt was started on IV Cardizem gtt and then weaned off of it. - Pt was started on Metoprolol 25mg po bid. Pt has remained in NSR. Ambulate to assess rate control - 2D echo (04/07/18): - Estimated ejection fraction in the range of 65-70%. - LA is moderately dilated. - Mild aortic valve regurgitation. - Mild tricuspid valve regurgitation. - Estimated RSVP is 36 mmHg - ICV is normal size with greater than 50% collapse with inspiration. - Cont telemetry. - Stool studies were cdiff neg. - Stool for enteric pathogens is pending. - Lomotil PRN - CT Abd/pelvis (04/06/18): - Probable chronic ileus and most likely gastroenteritis with fluid levels within loops of small bowel not particularly dilated. - Otherwise chronic changes not significantly changed. - Antiemetics PRN. She has been on Reglan, Phenergan and Compazine without much improvement in the N/V - Kytril 1mg Q12H scheduled for now - appreciate input from GI - Case d/w Dr. Choi (04/08). Pt was sedated yesterday from her antiemetics. Dr. Choi will come by again today. - continued n/v/d - lomotil prn - Case d/w Dr. Metz (04/08/18). [facility] Oncologist. Input appreciated - will start zyrexa 5mg hs Dr. Metz's recommendations for nausea. - schedule zofran per Dr. eMtz's recommendations for diarrhea. - Pain control PRN - Liquid diet as tolerated (2) Mucinous adenocarcinoma of appendix Code(s): C18.1 - Malignant neoplasm of appendix Status: Acute
[2018-04-09] MEDS ORDERED: Potassium Chlor 10 mEq Premix 10 MEQ/100 ML PIGGYBACK IV.SIG SCH ×2 (18:00→23:30)
[2018-04-09] MEDS: Metoprolol Tartrate 50 MG Tablet PO SCH (21:37)
[2018-04-10] MEDS: Potassium Chlor 10 mEq Premix 10 MEQ/100 ML PIGGYBACK IV.SIG SCH ×7 (01:16→17:48)
[2018-04-10] MEDS: Potassium Chloride Inj 10 MEQ in Sod Chloride 0.9% Inj 1,000 ML IV.CONT SCH ×2 (04:10→13:51)
[2018-04-10] MEDS: Pantoprazole Inj 40 MG Vial IV.PUSH SCH ×2 (05:25→16:31)
[2018-04-10 06:47] LABS: Hematocrit 35.4 % (35.0-46.0); Hemoglobin 12.2 gm/dL (11.6-15.3); Mean Corpuscular HGB Conc 34.3 % (32.0-36.0); Mean Corpuscular Volume 99.1 fL (80.0-100.0); Mean Platelet Volume 7.7 fL (7.0-11.0); Platelet Count 123 th/mm3 (150-450); Red Blood Count 3.58 mil/mm3 (4.00-5.30); White Blood Count 4.5 th/mm3 (4.0-11.0)
[2018-04-10 07:13] LABS: Anion Gap 11 meq/L (5-15); Blood Urea Nitrogen 8 mg/dL (7-18); Calcium 7.9 mg/dL (8.5-10.1); Carbon Dioxide 16.9 meq/L (21.0-32.0); Chloride 117 meq/L (98-107); Glomerular Filtration Rate Greater Than 89 mL/min (>89); Glucose,Random 84 mg/dL (74-106); Magnesium 1.9 mg/dL (1.5-2.5); Sodium 145 meq/L (136-145)
[2018-04-10 07:17] LABS: Potassium 2.6 meq/L (3.5-5.1)
[2018-04-10 07:52] LABS: Dohle Bodies Present; Lymphocytes 13 % (9-44); Metamyelocytes 2 % (0-1); Monocytes 29 % (0-8)
[2018-04-10 07:53] LABS: Platelet Morphology Normal (Normal); Spherocytes Occ; Toxic Granulation 2+
[2018-04-10] MEDS: Metoprolol Tartrate 50 MG Tablet PO SCH ×2 (08:58→22:00)
[2018-04-10] MEDS: dilTIAZem Inj 125 MG in Sodium Chlor 0.9% Inj 100 ML IV.CONT PRN (09:25)
--- NOTE | 2018-04-10 11:05 | P.PNIM ---
Subjective Interval history: Pt had several episodes of watery diarrhea this morning. Less nausea this AM and pt tolerated a small amount of PO intake. Pt had recurrent RVR this AM. Pt resumed on cardizem gtt. Pt had palpitations. Pt denies chest pain or SOB. Physical Exam Vital signs: 04/10/18 04:00 04/10/18 07:22 04/10/18 09:01 Temperature 98.5 F 98.7 F Pulse Rate 75 82 117 H Respiratory Rate 16 Blood Pressure 155/91 H 102/69 Pulse Oximetry 98 98 Narrative: GENERAL: This is a well-nourished, well-developed patient, in no apparent distress. CARDIOVASCULAR: Regular rate and rhythm without murmurs, gallops, or rubs. RESPIRATORY: Clear to auscultation. Breath sounds equal bilaterally. No wheezes , rales, or rhonchi. GASTROINTESTINAL: Abdomen soft, non-tender, nondistended. Normal active bowel sounds MUSCULOSKELETAL: Extremities without clubbing, cyanosis, or edema. NEURO: Alert & Oriented x4 to person, place, time, situation. Moves all ext x4 Results - Labs CBC & Chem 7: 04/12/18 05:40 04/13/18 05:20 - Procedures 2D echo(04/07/18): - Estimated ejection fraction in the range of 65-70%. - The left atrial size is moderately dilated. - Mild aortic valve regurgitation. - There is mild tricuspid valve regurgitation. - Estimated RSVP is 36 mmHg - ICV is normal size with greater than 50% collapse with inspiration. Assessment and Plan - Assessment (1) Atrial fibrillation with RVR Code(s): I48.91 - Unspecified atrial fibrillation Status: Acute Plan: A. 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 On December 13 pt was seen by Dr King and Polo. She had a right ovarian mass with torsion, significant intraperitoneal adhesions and intraperitoneal seeding. Pt underwent robotic-assisted laparoscopic hysterectomy, bilateral salpingo- oophorectomy (with resection of approximately 14 cm torsed right ovarian mass), extensive lysis of adhesions and right hemicolectomy performed. Pathology revealed features of mucinous adenocarcinoma. Pt went to [place] to see establish oncology care. - Over past 3months pt reports being treated with Capacitabine 2wk on/1wk off and this past Saturday was her fourth round of Oxaliplatin. She reports that she is scheduled for Hipec surgery on April 28 per her report. - Pt was developing diarrhea with this treatment and she has had n/v since with abdomen cramps and diarrhea. - Pt presented to the ED on 04/05 with dehydration and was found to have new A.fib/RVR. - Pt was started on IV Cardizem gtt and then weaned off of it. - Pt was started on Metoprolol 25mg po bid. Pt has remained in NSR. Ambulate to assess rate control - 2D echo (04/07/18): - Estimated ejection fraction in the range of 65-70%. - LA is moderately dilated. - Mild aortic valve regurgitation. - Mild tricuspid valve regurgitation. - Estimated RSVP is 36 mmHg - ICV is normal size with greater than 50% collapse with inspiration. - comgmt with GI & Oncology - Cont telemetry. - Stool studies were cdiff neg. - Stool for enteric pathogens negative, antigens for Giardia and cryptosporidium were negative - CT Abd/pelvis (04/06/18): - Probable chronic ileus and most likely gastroenteritis with fluid levels within loops of small bowel not particularly dilated. - Otherwise chronic changes not significantly changed. - Antiemetics PRN. Phenergan and Compazine prn - lomotil prn - Case d/w Dr. Metz (04/08/18). [facility] Oncologist. Input appreciated - will start zyrexa 5mg hs Dr[address] Metz's recommendations for nausea. - schedule zofran per Dr. Metz's recommendations for diarrhea. - Pain control PRN - Liquid diet as tolerated 04/10/18 - Pt developed recurrent Afib RVR this AM (04/10). 12 lead EKG from 04/09/18 showed NSR - continue metoprolol 50mg BID - Pt started on IV Cardizem and again converted to NSR - Start PO Cardizem & will attempt to wean off IV - replete for hypokalemia - change IVF to 1/2NS with 40mEq KCL - repeat labs in AM - Case d/w Dr. Choi (04/10) (2) Mucinous adenocarcinoma of appendix Code(s): C18.1 - Malignant neoplasm of appendix Status: Acute
[2018-04-10] MEDS: Diphenoxylate/Atropine 2.5/0.025 MG Tablet PO PRN ×3 (11:08→22:30)
[2018-04-10] MEDS ORDERED: dilTIAZem 60 MG Tablet PO SCH (13:00)
[2018-04-10] MEDS: Sodium Chloride 0.9% 2 ML Flush BID IV.FLUSH SCH ×2 (13:33→22:31)
[2018-04-10 13:52] LABS: Anion Gap 10 meq/L (5-15); Blood Urea Nitrogen 8 mg/dL (7-18); Calcium 8.3 mg/dL (8.5-10.1); Carbon Dioxide 18.6 meq/L (21.0-32.0); Chloride 115 meq/L (98-107); Glomerular Filtration Rate Greater Than 89 mL/min (>89); Glucose,Random 97 mg/dL (74-106); Sodium 144 meq/L (136-145)
[2018-04-10 14:00] LABS: Potassium 2.8 meq/L (3.5-5.1)
[2018-04-10] MEDS: Potassium Chloride Inj 40 MEQ in Sodium Chloride 0.45 % Inj 1,000 ML IV.SIG SCH (17:46)
--- NOTE | 2018-04-10 18:29 | P.PNONC ---
Subjective Interval history: Resting comfortably in bed. Daughter and son at bedside 3 watery bowel movements today Afib with RVR this morning. Objective Vital Signs/Intake & Output: Vital Signs 04/09/18 19:44 04/09/18 20:00 04/10/18 00:00 Temperature 99 F 99 F Pulse Rate 70 80 Respiratory Rate 16 18 Blood Pressure 128/73 128/76 Pulse Oximetry 98 97 97 04/10/18 04:00 04/10/18 07:22 04/10/18 09:01 Temperature 98.5 F 98.7 F Pulse Rate 75 82 117 H Respiratory Rate 16 Blood Pressure 155/91 H 102/69 Pulse Oximetry 98 98 04/10/18 11:12 04/10/18 12:41 04/10/18 16:45 Temperature 98.4 F 96.9 F L 98.4 F Pulse Rate 69 89 Respiratory Rate 16 20 Blood Pressure 123/71 112/75 Pulse Oximetry 99 97 Intake & Output 04/09/18 04/10/18 04/10/18 18:59 06:59 18:59 Intake Total 1250 / 1250 500 / 500 2260 / 2260 Output Total 680 / 680 Balance 570 / 570 500 / 500 2260 / 2260 Weight 54.5 kg Intake: IV 1250 / 1250 500 / 500 2260 / 2260 KCl Inj 10 MEQ In NS Inj 1,000 950 / 950 1900 / 1900 ML @ 84 mls/hr IV.CONT .[id number] [facility] Rx#:[id number] Cardizem Inj 125 MG In NS Inj 60 / 60 100 ML @ 5 MG/HR 5 mls/hr IV. CONT TITRATE PRN Rx#:[id number] KCl 10 mEq Premix Inj 10 meq In 300 / 300 500 / 500 300 / 300 100 ml @ 100 mls/hr IV.SIG Q1H [facility] Rx#:[id number] Output: Urine 680 / 680 Other: Date of Last Bowel Movement 04/09/18 # Bowel Movements 2 Result Diagrams: 04/10/18 05:33 04/10/18 13:08 Laboratory Results: Laboratory Results - last 24 hr 04/10/18 04/10/18 04/10/18 05:33 05:33 13:08 WBC 4.5 RBC 3.58 L Hgb 12.2 Hct 35.4 MCV 99.1 MCH 34.0 MCHC 34.3 RDW 20.0 H Plt Count 123 L MPV 7.7 Prelim Diff (Auto) Manual diff required WBC Differential Manual diff final Seg Neuts % (Manual) 24 Band Neuts % (Manual) 32 H Lymphocytes % (Manual) 13 Monocytes % (Manual) 29 H Metamyelocytes % (Man) 2 H Abs Neuts (Manual) 2.6 Differential Comment . Toxic Granulation 2+ H Dohle Bodies Present H Platelet Estimate Low L Platelet Morphology Normal Spherocytes Occ H Sodium 145 144 Potassium 2.6 L* 2.8 L* Chloride 117 H 115 H Carbon Dioxide 16.9 L 18.6 L Anion Gap 11 10 BUN 8 8 Creatinine 0.40 L 0.61 Estimated GFR Greater than 89 Greater than 89 Random Glucose 84 97 Calcium 7.9 L 8.3 L Magnesium 1.9 Culture Results: Microbiology 04/08/18 01:01 Cryptosporidium Antigen - Final Stool Negative - No Cryptosporicium antigen detected In selected cases of patients with a history of immunosuppression or foreign travel, a full ova and parasites examination may be desired. Contact the microbiology lab if full workup is indicated and subit another specimen for testing. Giardia Antigen (CUAUHTEMOC) - Final Negative - No Giardia Antigen detected In selected cases of patients with a history of immunosuppression or foreign travel, a full ova and parasites examination may be desired. Contact the microbiology lab if full workup is indicated and subit another specimen for testing. 04/08/18 01:01 Stool for WBCs - Final Stool Few WBC's 04/06/18 13:00 Enteric Pathogens (PCR) - Final Stool No enteric pathogens detected by PCR (No Salmonella sp., Shigella sp., Campylobacter sp., Yersinia enterocolitica, Vibrio sp., Norovirus, or EHEC (Shiga Toxin 1 or Shiga Toxin 2) detected. Medications: Active Medications Generic Name Dose Route Start Last Admin Trade Name Freq PRN Reason Stop Dose Admin Hydrocodone Bitart/Acetaminophen 1 tab 04/06/18 11:04 04/08/18 21:41 [place] 5/325 PO 1 tab Q4H PRN Administration pain 3-10 Cholestyramine Resin 4 gm 04/10/18 11:30 04/10/18 13:33 Questran 4 Gm Pkt PO Not Given BID LIVAN Diphenoxylate HCl/Atropine 1 tab 04/07/18 12:20 04/10/18 16:32 Lomotil PO 1 tab Q6H PRN Administration DIARRHEA Diltiazem HCl 125 mg/ Sodium 125 mls @ 5 mls/hr 04/05/18 20:37 04/10/18 09:25 Chloride IV.CONT 5 mg/hr TITRATE PRN 5 mls/hr Per Protocol Administration Protocol 5 MG/HR Potassium Chloride 40 meq/ 1,020 mls @ 84 mls/hr 04/10/18 12:00 04/10/18 17: 46 Sodium Chloride IV.SIG 84 mls/hr .Q12H9M LIVAN Administration Metoprolol Tartrate 50 mg 04/09/18 21:00 04/10/18 08:58 Lopressor PO 50 mg BID LIVAN Administration Olanzapine 5 mg 04/09/18 21:00 04/09/18 21:37 Zyprexa PO 5 mg HS LIVAN Administration Ondansetron HCl 4 mg 04/06/18 18:15 04/10/18 16:32 Zofran Inj IV.PUSH 4 mg Q4H PRN Administration n/v Ondansetron HCl 4 mg 04/09/18 18:30 04/10/18 08:58 Zofran Odt PO 4 mg Q12HR LIVAN Administration Pantoprazole Sodium 40 mg 04/07/18 17:00 04/10/18 16:31 Protonix Inj IV.PUSH 40 mg Q12H LIVAN Administration Prochlorperazine Edisylate 10 mg 04/06/18 20:11 04/09/18 21:35 Compazine Inj IV.PUSH 10 mg Q6H PRN Administration n/v Promethazine HCl 25 mg 04/06/18 20:09 04/09/18 09:27 Phenergan Supp RECTAL 25 mg Q6H PRN Administration NAUSEA/VOMITING Sodium Chloride 2 ml 04/08/18 21:00 04/10/18 13:33 Ns Flush IV.FLUSH Not Given BID LIVAN Objective Remarks: GENERAL: Well-nourished, well-developed patient. SKIN: Warm and dry. HEAD: Normocephalic. EYES: No scleral icterus. No injection or drainage. Respiratory: No accessory muscle use. GASTROINTESTINAL: distended EXTREMITIES: No cyanosis, or edema. MUSCULOSKELETAL: Adequate muscle tone. NEUROLOGICAL: No obvious focal deficit. Awake, alert, and oriented x3. PSYCHIATRIC: Appropriate mood and affect; insight and judgment normal. Assessment/Plan - Plan 1. 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 She is currently being treated under the direction of the [facility] team. She is s/p 4 cycles of capecitabine and oxaliplatin. HIPEC surgery scheduled for 2017. 2. GI symptoms: diarrhea, nausea, abdominal distention. Patient reports that symptoms occur in waves. Likely contributing factors include to malignancy/ chemotherapy. Zofran, lomotil immodium. Oncology service will continue to follow.
[2018-04-10 19:16] LABS: Anion Gap 11 meq/L (5-15); Blood Urea Nitrogen 9 mg/dL (7-18); Carbon Dioxide 15.8 meq/L (21.0-32.0); Chloride 115 meq/L (98-107); Glomerular Filtration Rate Greater Than 89 mL/min (>89); Glucose,Random 109 mg/dL (74-106); Potassium 3.1 meq/L (3.5-5.1); Sodium 142 meq/L (136-145)
[2018-04-10] MEDS: dilTIAZem 60 MG Tablet PO SCH (21:19)
--- NOTE | 2018-04-10 22:34 | ECG ---
Date Performed: 04/09/2018 Time Performed: 21:24:33 PTAGE: 73 years EKG: Sinus rhythm NORMAL ECG PREVIOUS TRACING : 04/05/2018 21.34 Since the previous tracing, no significant change noted DOCTOR: Kadi Sanderson Interpretating Date/Time 04/10/2018 22:33:09
[2018-04-11] MEDS: Potassium Chloride Inj 40 MEQ in Sodium Chloride 0.45 % Inj 1,000 ML IV.SIG SCH ×3 (00:43→13:40)
[2018-04-11] MEDS: dilTIAZem 60 MG Tablet PO SCH ×4 (00:48→19:26)
[2018-04-11] MEDS: Pantoprazole Inj 40 MG Vial IV.PUSH SCH ×2 (05:07→17:44)
[2018-04-11] MEDS: Metoprolol Tartrate 50 MG Tablet PO SCH ×2 (08:25→15:13)
[2018-04-11] MEDS: Sodium Chloride 0.9% 2 ML Flush BID IV.FLUSH SCH ×2 (12:52→22:22)
[2018-04-11] MEDS ORDERED: Potassium Chloride 10 MEQ ER Capsule PO ONE (14:15)
--- NOTE | 2018-04-11 15:23 | ECG ---
Date Performed: 04/10/2018 Time Performed: 12:17:07 PTAGE: 73 years EKG: Sinus rhythm NORMAL ECG Since the PREVIOUS TRACING , no significant change noted PREVIOUS TRACIN04/09/2018 21.24 DOCTOR: Cathy Martínez Interpretating Date/Time 04/11/2018 15:17:00
--- NOTE | 2018-04-11 16:10 | P.PNIM ---
Subjective Interval history: Pt tolerating small amount of PO intake. Pt c/o oral sores limiting her intake. Pt has had 2 episodes of diarrhea today. Physical Exam Vital signs: 04/11/18 04:08 04/11/18 05:06 04/11/18 08:00 Temperature 97.6 F Pulse Rate 52 L 76 96 H Respiratory Rate 16 Blood Pressure 107/60 Pulse Oximetry 99 Narrative: GENERAL: This is a well-nourished, well-developed patient, in no apparent distress. CARDIOVASCULAR: irregular RESPIRATORY: Clear to auscultation. Breath sounds equal bilaterally. No wheezes , rales, or rhonchi. GASTROINTESTINAL: Abdomen soft, non-tender, nondistended. Normal active bowel sounds MUSCULOSKELETAL: Extremities without clubbing, cyanosis, or edema. NEURO: Alert & Oriented x4 to person, place, time, situation. Moves all ext x4 Results - Labs CBC & Chem 7: 04/12/18 05:40 04/13/18 05:20 - Procedures 2D echo(04/07/18): - Estimated ejection fraction in the range of 65-70%. - The left atrial size is moderately dilated. - Mild aortic valve regurgitation. - There is mild tricuspid valve regurgitation. - Estimated RSVP is 36 mmHg - ICV is normal size with greater than 50% collapse with inspiration. Assessment and Plan - Assessment (1) Atrial fibrillation with RVR Code(s): I48.91 - Unspecified atrial fibrillation Status: Acute Plan: A. 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 On December 13 pt was seen by Dr King and Polo. She had a right ovarian mass with torsion, significant intraperitoneal adhesions and intraperitoneal seeding. Pt underwent robotic-assisted laparoscopic hysterectomy, bilateral salpingo- oophorectomy (with resection of approximately 14 cm torsed right ovarian mass), extensive lysis of adhesions and right hemicolectomy performed. Pathology revealed features of mucinous adenocarcinoma. Pt went to [place] to see establish oncology care. - Over past 3months pt reports being treated with Capacitabine 2wk on/1wk off and this past Saturday was her fourth round of Oxaliplatin. She reports that she is scheduled for Hipec surgery on April 28 per her report. - Pt was developing diarrhea with this treatment and she has had n/v since Thursday with abdomen cramps and diarrhea. - Pt presented to the ED on 04/05 with dehydration and was found to have new A.fib/RVR. - Pt was started on IV Cardizem gtt and then weaned off of it. - Pt was started on Metoprolol 25mg po bid. Pt has remained in NSR. Ambulate to assess rate control - 2D echo (04/07/18): - Estimated ejection fraction in the range of 65-70%. - LA is moderately dilated. - Mild aortic valve regurgitation. - Mild tricuspid valve regurgitation. - Estimated RSVP is 36 mmHg - ICV is normal size with greater than 50% collapse with inspiration. - comgmt with GI & Oncology - Cont telemetry. - Stool studies were cdiff neg. - Stool for enteric pathogens negative, antigens for Giardia and cryptosporidium were negative - CT Abd/pelvis (04/06/18): - Probable chronic ileus and most likely gastroenteritis with fluid levels within loops of small bowel not particularly dilated. - Otherwise chronic changes not significantly changed. - Antiemetics PRN. Phenergan and Compazine prn - lomotil prn - Case d/w Dr. Metz (04/08/18). [facility] Oncologist. Input appreciated - will start zyrexa 5mg hs Dr. Metz's recommendations for nausea. - schedule zofran per Dr. Metz's recommendations for diarrhea. - Pain control PRN - Liquid diet as tolerated 04/11/18 - Pt initially refused AM dose of metoprolol & went back into RVR - HR came under control after taking metoprolol - Pt off IV Cardizem - continue PO cardizem - hypokalemia improving 3.1 (04/11) --> replete - continue IVF: 1/2NS with 40mEq KCL - repeat labs in AM - anticipate possible d/c in 2-4 days (2) Mucinous adenocarcinoma of appendix Code(s): C18.1 - Malignant neoplasm of appendix Status: Acute
--- NOTE | 2018-04-11 16:25 | ECG ---
Date Performed: 04/11/2018 Time Performed: 15:26:46 PTAGE: 73 years EKG: Atrial fibrillation with rapid ventricular response. Abnormal ECG Compared to prior electro cardiogram, Atrial fibrillation has replaced Sinus rhythm . DOCTOR: Anderson Felipe Interpretating Date/Time 04/11/2018 16:23:54
[2018-04-11] MEDS ORDERED: Nystatin Liq 500,000 UNIT/5 ML UDC SWISH-SWAL SCH (18:00)
[2018-04-11] MEDS ORDERED: Nystatin/Diphenhydramine/Lidocaine Mouthwash (Adult) 120 ML Botttle SWISH-SWAL SCH (18:00)
[2018-04-11] MEDS: Diphenoxylate/Atropine 2.5/0.025 MG Tablet PO PRN (19:26)
[2018-04-11] MEDS ORDERED: Digoxin Inj 500 MCG/2 ML Ampul IV.PUSH ONE (19:30)
--- NOTE | 2018-04-11 19:42 | P.PNONC ---
Subjective Interval history: Resting comfortably in bed. Abdominal distention. Patient reports that she had a good appetite this morning. Objective Vital Signs/Intake & Output: Vital Signs 04/10/18 19:46 04/10/18 19:55 04/10/18 20:09 Temperature 97.8 F Pulse Rate 66 59 L Respiratory Rate 20 Blood Pressure 93/57 L Pulse Oximetry 95 95 04/10/18 21:59 04/11/18 00:38 04/11/18 00:46 Temperature 97.8 F Pulse Rate 51 L 60 62 Respiratory Rate 18 Blood Pressure 111/64 Pulse Oximetry 96 04/11/18 04:00 04/11/18 04:08 04/11/18 05:06 Temperature 98.2 F Pulse Rate 53 L 52 L 76 Respiratory Rate 18 Blood Pressure 112/56 L Pulse Oximetry 97 04/11/18 08:00 04/11/18 12:00 04/11/18 16:00 Temperature 97.6 F 97.9 F Pulse Rate 96 H 71 94 H Respiratory Rate 16 18 Blood Pressure 107/60 78/53 L Pulse Oximetry 99 97 04/11/18 17:16 04/11/18 17:29 04/11/18 17:30 Temperature Pulse Rate 68 Respiratory Rate 18 Blood Pressure 108/62 96/51 L Pulse Oximetry 98 98 04/11/18 18:36 04/11/18 19:25 Temperature Pulse Rate 62 Respiratory Rate Blood Pressure 102/62 104/60 Pulse Oximetry Intake & Output 04/11/18 04/11/18 04/12/18 06:59 18:59 06:59 Intake Total 1020 / 1020 20 / 20 Output Total 900 / 900 Balance 120 / 120 20 / 20 Weight 54.5 kg Intake: IV 1020 / 1020 20 / 20 KCl Inj 40 MEQ In 1/2 Normal 1020 / 1020 20 / 20 Saline Inj 1,000 ML @ 84 mls/hr IV.SIG .Q12H9M [facility] Rx#: [id number] Output: Urine 900 / 900 Other: Date of Last Bowel Movement 04/10/18 # Bowel Movements 1 Result Diagrams: 04/10/18 05:33 04/10/18 18:30 Medications: Active Medications Generic Name Dose Route Start Last Admin Trade Name Freq PRN Reason Stop Dose Admin Hydrocodone Bitart/Acetaminophen 1 tab 04/06/18 11:04 04/08/18 21:41 [place] 5/325 PO 1 tab Q4H PRN Administration pain 3-10 Cholestyramine Resin 4 gm 04/10/18 11:30 04/11/18 08:23 Questran 4 Gm Pkt PO 4 gm BID LIVAN Administration Diltiazem HCl 60 mg 04/10/18 18:00 04/11/18 19:26 Cardizem PO 60 mg Q6HR LIVAN Administration Diphenoxylate HCl/Atropine 1 tab 04/07/18 12:20 04/11/18 19:26 Lomotil PO 1 tab Q6H PRN Administration DIARRHEA Diltiazem HCl 125 mg/ Sodium 125 mls @ 5 mls/hr 04/05/18 20:37 04/10/18 09:25 Chloride IV.CONT 5 mg/hr TITRATE PRN 5 mls/hr Per Protocol Administration Protocol 5 MG/HR Potassium Chloride 40 meq/ 1,020 mls @ 84 mls/hr 04/10/18 12:00 04/11/18 17: 45 Sodium Chloride IV.SIG 84 mls/hr .Q12H9M LIVAN Infusion Nystatin 5 ml 04/11/18 18:00 04/11/18 17:45 Mycostatin Liq SWISH-SWAL 5 ml QID LIVAN Administration Olanzapine 5 mg 04/09/18 21:00 04/10/18 22:30 Zyprexa PO 5 mg HS LIVAN Administration Ondansetron HCl 4 mg 04/06/18 18:15 04/11/18 19:26 Zofran Inj IV.PUSH 4 mg Q4H PRN Administration n/v Ondansetron HCl 4 mg 04/09/18 18:30 04/11/18 08:27 Zofran Odt PO 4 mg Q12HR LIVAN Administration Pantoprazole Sodium 40 mg 04/07/18 17:00 04/11/18 17:44 Protonix Inj IV.PUSH 40 mg Q12H LIVAN Administration Prochlorperazine Edisylate 10 mg 04/06/18 20:11 04/10/18 19:42 Compazine Inj IV.PUSH 10 mg Q6H PRN Administration n/v Promethazine HCl 25 mg 04/06/18 20:09 04/09/18 09:27 Phenergan Supp RECTAL 25 mg Q6H PRN Administration NAUSEA/VOMITING Sodium Chloride 2 ml 04/08/18 21:00 04/11/18 12:52 Ns Flush IV.FLUSH 2 ml BID LIVAN Administration Objective Remarks: GENERAL: Well-nourished, well-developed patient. SKIN: Warm and dry. HEAD: Normocephalic. EYES: No scleral icterus. No injection or drainage. NECK: Supple, trachea midline. No JVD or lymphadenopathy. LYMPHATIC: No adenopathy. RESPIRATORY: No accessory muscle use. GASTROINTESTINAL: Abdomen soft, non-tender, nondistended. EXTREMITIES: No edema. NEUROLOGICAL: No obvious focal deficit. Awake, alert, and oriented x3. PSYCHIATRIC: Appropriate mood and affect; insight and judgment normal. Assessment/Plan - Plan 1. 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 She is currently being treated under the direction of the [facility] team. She is s/p 4 cycles of capecitabine and oxaliplatin. HIPEC surgery scheduled for2017 2. GI symptoms: diarrhea, nausea, abdominal distention. Patient reports that symptoms occur in waves. Likely contributing factors include to malignancy/ chemotherapy. Zofran, Lomotil Imodium. Oncology service will continue to follow.
[2018-04-11] MEDS: Fluconazole 100 MG Tablet PO SCH (22:16)
[2018-04-11] MEDS: Nystatin/Diphenhydramine/Lidocaine Mouthwash (Adult) 120 ML Botttle SWISH-SWAL SCH (22:22)
[2018-04-12] MEDS: dilTIAZem 60 MG Tablet PO SCH ×4 (00:39→18:04)
[2018-04-12] MEDS ORDERED: Digoxin Inj 500 MCG/2 ML Ampul IV.PUSH SCH (02:00)
[2018-04-12] MEDS: Pantoprazole Inj 40 MG Vial IV.PUSH SCH ×2 (05:20→16:47)
[2018-04-12] MEDS: Potassium Chloride Inj 40 MEQ in Sodium Chloride 0.45 % Inj 1,000 ML IV.SIG SCH ×2 (06:42→21:34)
[2018-04-12 07:48] LABS: Baso % (Auto) 0.1 % (0.0-2.0); Eos % (Auto) 0.4 % (0.0-4.0); Hematocrit 34.3 % (35.0-46.0); Hemoglobin 11.6 gm/dL (11.6-15.3); Lymph % (Auto) 15.9 % (9.0-44.0); Mean Corpuscular HGB Conc 33.8 % (32.0-36.0); Mean Corpuscular Hemoglobin 34.3 pg (27.0-34.0); Mean Corpuscular Volume 101.4 fL (80.0-100.0); Mean Platelet Volume 8.7 fL (7.0-11.0); Mono # (Auto) 0.9 th/mm3 (0.0-0.9); Mono % (Auto) 14.4 % (0.0-8.0); Neut # (Auto) 4.2 th/mm3 (1.8-7.7); Neut % (Auto) 69.2 % (16.0-70.0); Platelet Count 92 th/mm3 (150-450); Red Blood Count 3.39 mil/mm3 (4.00-5.30); Red Cell Distribution Width 20.9 % (11.6-17.2)
[2018-04-12 07:52] LABS: Anion Gap 9 meq/L (5-15); Blood Urea Nitrogen 5 mg/dL (7-18); Calcium 7.4 mg/dL (8.5-10.1); Carbon Dioxide 15.7 meq/L (21.0-32.0); Chloride 114 meq/L (98-107); Glomerular Filtration Rate Greater Than 89 mL/min (>89); Glucose,Random 71 mg/dL (74-106); Potassium 3.5 meq/L (3.5-5.1); Sodium 139 meq/L (136-145)
[2018-04-12 08:11] LABS: Total Protein 5.1 g/dL (6.4-8.2)
[2018-04-12 08:50] LABS: Lymphocytes 7 % (9-44); Monocytes 10 % (0-8)
[2018-04-12 08:51] LABS: Toxic Granulation 2+
[2018-04-12 08:52] LABS: Platelet Morphology Normal (Normal)
[2018-04-12] MEDS: Sodium Chloride 0.9% 2 ML Flush BID IV.FLUSH SCH ×2 (10:02→20:28)
[2018-04-12] MEDS: Nystatin/Diphenhydramine/Lidocaine Mouthwash (Adult) 120 ML Botttle SWISH-SWAL SCH ×4 (10:02→20:11)
--- NOTE | 2018-04-12 11:12 | P.PNONC ---
Subjective Interval history: Afebrile. Patient lying in bed, in no acute distress. She reports generalized weakness, some dizziness which she is relating to lower blood pressure on current cardiac medications. 2 episodes of diarrhea since 0700 today. She reports decreased appetite related to thrush and mouth pain. Objective Vital Signs/Intake & Output: Vital Signs 04/11/18 12:00 04/11/18 16:00 04/11/18 17:16 Temperature 97.9 F Pulse Rate 71 94 H 68 Respiratory Rate 18 18 Blood Pressure 78/53 L 108/62 Pulse Oximetry 97 98 04/11/18 17:29 04/11/18 17:30 04/11/18 18:36 Temperature Pulse Rate 62 Respiratory Rate Blood Pressure 96/51 L 102/62 Pulse Oximetry 98 04/11/18 19:25 04/11/18 19:56 04/11/18 20:00 Temperature 98.8 F Pulse Rate 63 66 Respiratory Rate 18 Blood Pressure 104/60 96/63 L Pulse Oximetry 97 04/12/18 00:20 04/12/18 00:35 04/12/18 04:02 Temperature 98.5 F Pulse Rate 58 L 80 51 L Respiratory Rate 16 Blood Pressure 104/64 Pulse Oximetry 97 04/12/18 04:12 04/12/18 07:40 04/12/18 08:00 Temperature 98.6 F 97.6 F Pulse Rate 71 74 83 Respiratory Rate 16 16 Blood Pressure 109/57 L 101/58 L Pulse Oximetry 97 97 Intake & Output 04/11/18 04/12/18 04/12/18 18:59 06:59 18:59 Intake Total 860 / 860 990 / 990 Output Total 800 / 800 300 / 300 Balance 60 / 60 690 / 690 Weight 55 kg Intake: IV 990 / 990 KCl Inj 40 MEQ In 1/2 Normal 990 / 990 Saline Inj 1,000 ML @ 84 mls/hr IV.SIG .Q12H9M [facility] Rx#: [id number] Oral 840 / 840 Output: Urine 800 / 800 300 / 300 Other: # Voids 2 Date of Last Bowel Movement 04/11/18 04/12/18 # Bowel Movements 2 Result Diagrams: 04/12/18 05:40 04/12/18 05:40 Laboratory Results: Laboratory Results - last 24 hr 04/12/18 04/12/18 05:40 05:40 WBC 6.0 RBC 3.39 L Hgb 11.6 Hct 34.3 L MCV 101.4 H MCH 34.3 H MCHC 33.8 RDW 20.9 H Plt Count 92 L MPV 8.7 Prelim Diff (Auto) Slide review pending Neut % (Auto) 69.2 Lymph % (Auto) 15.9 [place] % (Auto) 14.4 H Eos % (Auto) 0.4 Baso % (Auto) 0.1 Neut # (Auto) 4.2 Lymph # (Auto) 1.0 [place] # (Auto) 0.9 Eos # (Auto) 0.0 Baso # (Auto) 0.0 WBC Differential Manual diff final Seg Neuts % (Manual) 58 Band Neuts % (Manual) 25 H Lymphocytes % (Manual) 7 L Monocytes % (Manual) 10 H Abs Neuts (Manual) 5.0 Differential Comment . Toxic Granulation 2+ H Platelet Estimate Low L Platelet Morphology Normal Sodium 139 Potassium 3.5 Chloride 114 H Carbon Dioxide 15.7 L Anion Gap 9 BUN 5 L Creatinine 0.30 L Estimated GFR Greater than 89 Random Glucose 71 L Calcium 7.4 L* Prot Corrected Calcium 8.5 Total Protein 5.1 L D Medications: Active Medications Generic Name Dose Route Start Last Admin Trade Name Freq PRN Reason Stop Dose Admin Hydrocodone Bitart/Acetaminophen 1 tab 04/06/18 11:04 04/08/18 21:41 [place] 5/325 PO 1 tab Q4H PRN Administration pain 3-10 Cholestyramine Resin 4 gm 04/10/18 11:30 04/12/18 10:02 Questran 4 Gm Pkt PO Not Given BID LIVAN Digoxin 250 mcg 04/12/18 02:00 04/12/18 02:16 Lanoxin Inj IV.PUSH 250 mcg ONCE@0200 LIVAN Administration Diltiazem HCl 60 mg 04/10/18 18:00 04/12/18 05:20 Cardizem PO 60 mg Q6HR LIVAN Administration Diphenoxylate HCl/Atropine 1 tab 04/07/18 12:20 04/11/18 19:26 Lomotil PO 1 tab Q6H PRN Administration DIARRHEA Fluconazole 100 mg 04/11/18 20:00 04/11/18 22:16 Diflucan PO 100 mg Q24H LIVAN Administration Diltiazem HCl 125 mg/ Sodium 125 mls @ 5 mls/hr 04/05/18 20:37 04/10/18 09:25 Chloride IV.CONT 5 mg/hr TITRATE PRN 5 mls/hr Per Protocol Administration Protocol 5 MG/HR Potassium Chloride 40 meq/ 1,020 mls @ 84 mls/hr 04/10/18 12:00 04/12/18 06: 42 Sodium Chloride IV.SIG 84 mls/hr .Q12H9M LIVAN Administration Multi-Ingredient Mouthwash/Gargle 10 ml 04/11/18 21:00 04/12/18 10:02 Magic Mouthwash Adult Liq SWISH-SWAL 10 ml ACHS LIVAN Administration Olanzapine 5 mg 04/09/18 21:00 04/11/18 22:17 Zyprexa PO 5 mg HS LIVAN Administration Ondansetron HCl 4 mg 04/06/18 18:15 04/11/18 19:26 Zofran Inj IV.PUSH 4 mg Q4H PRN Administration n/v Ondansetron HCl 4 mg 04/09/18 18:30 04/12/18 10:01 Zofran Odt PO 4 mg Q12HR LIVAN Administration Pantoprazole Sodium 40 mg 04/07/18 17:00 04/12/18 05:20 Protonix Inj IV.PUSH 40 mg Q12H LIVAN Administration Prochlorperazine Edisylate 10 mg 04/06/18 20:11 04/10/18 19:42 Compazine Inj IV.PUSH 10 mg Q6H PRN Administration n/v Promethazine HCl 25 mg 04/06/18 20:09 04/09/18 09:27 Phenergan Supp RECTAL 25 mg Q6H PRN Administration NAUSEA/VOMITING Sodium Chloride 2 ml 04/08/18 21:00 04/12/18 10:02 Ns Flush IV.FLUSH 2 ml BID LIVAN Administration Objective Remarks: GENERAL: Ill-appearing elderly female patient, in no acute distress. SKIN: Warm and dry. HEAD: Normocephalic. EYES: No scleral icterus. No injection or drainage. MOUTH: Thick white/brown plaque to tongue. Bilateral cheeks with white plaques. NECK: Supple, trachea midline. No JVD or lymphadenopathy. CARDIOVASCULAR: Regular rate and rhythm without murmurs. ECG monitor SR with hrt 68. RESPIRATORY: Breath sounds equal bilaterally. No accessory muscle use. GASTROINTESTINAL: Abdomen soft, non-tender, nondistended. EXTREMITIES: No cyanosis, or edema. MUSCULOSKELETAL: Adequate muscle tone. NEUROLOGICAL: No obvious focal deficit. Awake, alert, and oriented x3. PSYCHIATRIC: Appropriate mood and affect; insight and judgment normal. Assessment/Plan - Plan Ms. 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 Under the care of Dr. King and Dr Cuellar she underwent robotic assisted laparoscopic hysterectomy, bilateral salpingo- oophrectomy with resection of approximately 14 cm torsed right ovarian mass with extensive lysis of adhesions and right hemicolectomy performed. Care was established at [facility] and she was treated with 4 cycles of capecitabine and oxaliplatin. She receives capecitabine 2 weeks on, 1 week off and oxaliplatin every 3rd week. Her last treatment was oxaliplatin last Saturday. HIPEC surgery scheduled for 04/28/2018. Patient was admitted with GI symptoms and during hospitalization was also found to have A. fib RVR. Plan: 1. Mucinous adenocarcinoma, under the care of [facility]. Status post 4 cycles of capecitabine and oxaliplatin. HIPEC surgery scheduled for2017 2. GI symptoms: diarrhea, nausea, abdominal distention. Patient reports 2 episodes of diarrhea since 0700 today. Continue hydration, electrolyte replacement and Lomotil as needed. 3. Atrial fibrillation, currently on digoxin and diltiazem. Management per attending. 4. Thrush, continue swish and swallow. 5. Continue supportive care. - Attending Statement The exam, history, and the medical decision-making described in the above note were completed with the assistance of the mid-level provider. I reviewed and agree with the findings presented. I attest that I had a [id number] encounter with the patient on the same day, and personally performed and documented my assessment and findings in the medical record. She is slowly getting better but remains weak. Diarrhea is less. No abdominal pain at the present time. I suspect that the diarrhea was due to the Xeloda. She is in atrial fibrillation. Given her age, atrial fibrillation, and the malignancy this puts her at increased risk of a stroke. I spoken with Dr. Philippe and we will ask cardiology to see her. She may need anticoagulation which potentially will be problematic, if she develops further thrombocytopenia. She has upcoming surgery and any anticoagulation will have to be held prior to upcoming surgery which will be done at the [facility].
--- NOTE | 2018-04-12 15:21 | P.PNIM ---
Subjective Interval history: DRAFT NOTE - Pt with less nausea today. Pt tolerating small amount of PO intake. - Pt still with several episodes of diarrhea. - Pt NOT able to tolerate Questran - Pt has NOT used Lomotil today. - Some improvement of mouth pain since starting on magic mouth wash. - Pt denies chest pain, palpitations, or SOB. Physical Exam Vital signs: 04/12/18 13:10 Temperature 98.1 F Pulse Rate 64 Respiratory Rate 16 Blood Pressure 112/62 Pulse Oximetry 98 Narrative: GENERAL: This is a well-nourished, well-developed patient, in no apparent distress. CARDIOVASCULAR: irregular RESPIRATORY: Clear to auscultation. Breath sounds equal bilaterally. No wheezes , rales, or rhonchi. GASTROINTESTINAL: Abdomen soft, non-tender, nondistended. Normal active bowel sounds MUSCULOSKELETAL: Extremities without clubbing, cyanosis, or edema. NEURO: Alert & Oriented x4 to person, place, time, situation. Moves all ext x4 Results - Labs CBC & Chem 7: 04/12/18 05:40 04/12/18 05:40 Laboratory Results - last 24 hr 04/12/18 04/12/18 04/12/18 05:40 05:40 11:25 WBC 6.0 RBC 3.39 L Hgb 11.6 Hct 34.3 L MCV 101.4 H MCH 34.3 H MCHC 33.8 RDW 20.9 H Plt Count 92 L MPV 8.7 Prelim Diff (Auto) Slide review pending Neut % (Auto) 69.2 Lymph % (Auto) 15.9 [place] % (Auto) 14.4 H Eos % (Auto) 0.4 Baso % (Auto) 0.1 Neut # (Auto) 4.2 Lymph # (Auto) 1.0 [place] # (Auto) 0.9 Eos # (Auto) 0.0 Baso # (Auto) 0.0 WBC Differential Manual diff final Seg Neuts % (Manual) 58 Band Neuts % (Manual) 25 H Lymphocytes % (Manual) 7 L Monocytes % (Manual) 10 H Abs Neuts (Manual) 5.0 Differential Comment . Toxic Granulation 2+ H Platelet Estimate Low L Platelet Morphology Normal Sodium 139 Potassium 3.5 Chloride 114 H Carbon Dioxide 15.7 L Anion Gap 9 BUN 5 L Creatinine 0.30 L Estimated GFR Greater than 89 Random Glucose 71 L Calcium 7.4 L* Prot Corrected Calcium 8.5 Total Protein 5.1 L D Digoxin 1.1 - Procedures 2D echo(04/07/18): - Estimated ejection fraction in the range of 65-70%. - The left atrial size is moderately dilated. - Mild aortic valve regurgitation. - There is mild tricuspid valve regurgitation. - Estimated RSVP is 36 mmHg - ICV is normal size with greater than 50% collapse with inspiration. Assessment and Plan - Assessment (1) Atrial fibrillation with RVR Code(s): I48.91 - Unspecified atrial fibrillation Status: Acute Plan: A. 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 On December 13 pt was seen by Dr King and Polo. She had a right ovarian mass with torsion, significant intraperitoneal adhesions and intraperitoneal seeding. Pt underwent robotic-assisted laparoscopic hysterectomy, bilateral salpingo- oophorectomy (with resection of approximately 14 cm torsed right ovarian mass), extensive lysis of adhesions and right hemicolectomy performed. Pathology revealed features of mucinous adenocarcinoma. Pt went to [place] to see establish oncology care. - Over past 3months pt reports being treated with Capacitabine 2wk on/1wk off and this past Saturday was her fourth round of Oxaliplatin. She reports that she is scheduled for Hipec surgery on April 28 per her report. - Pt was developing diarrhea with this treatment and she has had n/v since with abdomen cramps and diarrhea. - Pt presented to the ED on 04/05 with dehydration and was found to have new A.fib/RVR. - Pt was started on IV Cardizem gtt and then weaned off of it. - Pt was started on Metoprolol 25mg po bid. Pt has remained in NSR. Ambulate to assess rate control - 2D echo (04/07/18): - Estimated ejection fraction in the range of 65-70%. - LA is moderately dilated. - Mild aortic valve regurgitation. - Mild tricuspid valve regurgitation. - Estimated RSVP is 36 mmHg - ICV is normal size with greater than 50% collapse with inspiration. - comgmt with GI & Oncology - Cont telemetry. - Stool studies were cdiff neg. - Stool for enteric pathogens negative, antigens for Giardia and cryptosporidium were negative - CT Abd/pelvis (04/06/18): - Probable chronic ileus and most likely gastroenteritis with fluid levels within loops of small bowel not particularly dilated. - Otherwise chronic changes not significantly changed. - Antiemetics PRN. Phenergan and Compazine prn - lomotil prn - Case d/w Dr. Metz (04/08/18). [facility] Oncologist. Input appreciated - will start zyrexa 5mg hs Dr. Metz's recommendations for nausea. - schedule zofran per Dr. Metz's recommendations for diarrhea. - Pain control PRN - Liquid diet as tolerated 04/12/18 - hypotensive with metoprolol - continue PO cardizem - Digoxin 0.5mg IV followed by early AM dose of 0.25mg IV - Digoxin level 1.1 (04/12) - Telemetry: controlled A. Fib - digoxin 0.25mg IV x once - repeat digoxin level in AM - start lovenox 40 mg BID - Pt follows with Cardiology, Dr. Youssef. Case d/w Dr. Rivera who is covering for [facility]. - Will start pt on lovenox 40mg BID - Dr. Rivera will consult Saturday - continue IVF: 1/2NS with 20mEq KCL - hypokalemia resolved - repeat labs in AM - continue magic mouth wash & diflucan for Oral candidiasis - anticipate possible d/c in 2-4 days (2) Mucinous adenocarcinoma of appendix Code(s): C18.1 - Malignant neoplasm of appendix Status: Acute
[2018-04-12] MEDS ORDERED: Digoxin Inj 500 MCG/2 ML Ampul IV.PUSH ONE (16:03)
--- NOTE | 2018-04-12 17:19 | MB ---
cc: Darron Ruiz MD DATE: 04/12/2018 REASON FOR CONSULTATION: New onset atrial fibrillation. HISTORY OF PRESENT ILLNESS: The patient is a very pleasant 73-year-old woman who has seen my partner, Dr. Martínez, only for a history of hyperlipidemia, but has no specific cardiac problems. She does have a history of an apparently rare appendix cancer for which she has been receiving chemotherapy. She had chemotherapy about a week ago and came in with dehydration, symptoms of nausea, vomiting and diarrhea, and initially was sinus, but went into rapid atrial fibrillation. After rate control medications were started, she ended up converting back to sinus rhythm. She was not specifically symptomatic from her atrial fibrillation. She denies chest pain, shortness of breath, palpitations, lightheadedness, dizziness or syncope. PAST MEDICAL HISTORY: Hyperlipidemia, cancer of the appendix, neuropathy, history of hysterectomy, osteopenia. CURRENT MEDICATIONS: 1. Tylenol. 2. [place]. 3. Digoxin. 4. P.O. Cardizem 5. Diflucan. 6. Dilaudid. 7. Zyprexa. 8. Zofran. 9. Protonix. 10. Restoril. ALLERGIES: NO KNOWN DRUG ALLERGIES. PHYSICAL EXAMINATION: VITAL SIGNS: Afebrile, pulse 83, respiratory rate 16, BP 109/83, saturating 100% on room air. GENERAL: Pleasant woman in no distress. NECK: No JVD. LUNGS: Clear to auscultation bilaterally. CARDIOVASCULAR: Regular rate and rhythm. No significant murmurs appreciated. ABDOMEN: Benign. EXTREMITIES: No edema. LABORATORY DATA: White count 6.0, hematocrit 34.3, platelets 92, down from 163 on 04/05/2018. Her platelets have been steadily decreasing. Sodium 139, potassium 3.5, chloride 114, bicarbonate 15.9, BUN 5, creatinine 0.3, glucose 71. Initial EKG showed sinus rhythm. Subsequent EKG showed atrial fibrillation with a mildly rapid rate and current telemetry shows normal sinus rhythm without significant ischemic changes. Echocardiogram showed a normal ejection fraction with what was reported as a moderately enlarged left atrium measured at 4.3 cm. ASSESSMENT AND PLAN: New onset atrial fibrillation. The patient with recent chemotherapy and admission for dehydration had new onset atrial fibrillation. This may be primarily due to electrolyte abnormalities; however, her left atrium is enlarged so she could certainly have paroxysmal atrial fibrillation. She is currently in sinus and rate control medication has been started. Anticoagulation is more challenging concern given her downtrending platelets. Given that this may be a limited occurrence of atrial fibrillation, and the fact that she is in sinus rhythm currently, I am going to hold off on recommending anticoagulation, most specifically due to her declining platelets. Additionally, she has upcoming surgery planned in the first couple weeks of April for which she would have to stop anticoagulation anyway. Should she become in more persistent atrial fibrillation, this plan could be reevaluated. Further recommendations based on the clinical course. Thank you again for the opportunity to participate in this patient's care. MD TIFFANIE Kim/rosa , 04:40 PM , 04:46 PM
[2018-04-12] MEDS: KCL 20 mEq/NACL 0.45% Inj 1,000 ML IV.CONT SCH (18:04)
[2018-04-12] MEDS: Diphenoxylate/Atropine 2.5/0.025 MG Tablet PO SCH (20:11)
[2018-04-12] MEDS: Fluconazole 100 MG Tablet PO SCH (20:11)
[2018-04-12] MEDS ORDERED: Enoxaparin Inj 40 MG/0.4 ML Syringe SQ SCH (21:00)
[2018-04-13] MEDS: dilTIAZem 60 MG Tablet PO SCH ×5 (05:13→23:57)
[2018-04-13] MEDS: Pantoprazole Inj 40 MG Vial IV.PUSH SCH ×2 (05:13→16:35)
[2018-04-13] MEDS: KCL 20 mEq/NACL 0.45% Inj 1,000 ML IV.CONT SCH ×2 (05:18→17:24)
[2018-04-13 07:19] LABS: Anion Gap 11 meq/L (5-15); Blood Urea Nitrogen 4 mg/dL (7-18); Calcium 7.3 mg/dL (8.5-10.1); Carbon Dioxide 20.4 meq/L (21.0-32.0); Chloride 111 meq/L (98-107); Digoxin 1.1 ng/mL (0.8-2.0); Glomerular Filtration Rate Greater Than 89 mL/min (>89); Glucose,Random 72 mg/dL (74-106); Magnesium 1.9 mg/dL (1.5-2.5); Sodium 142 meq/L (136-145)
[2018-04-13 07:35] LABS: Potassium 2.8 meq/L (3.5-5.1)
[2018-04-13 07:49] LABS: Total Protein 4.8 g/dL (6.4-8.2)
[2018-04-13] MEDS: Diphenoxylate/Atropine 2.5/0.025 MG Tablet PO SCH ×2 (08:20→20:02)
[2018-04-13] MEDS: Sodium Chloride 0.9% 2 ML Flush BID IV.FLUSH SCH ×2 (08:21→20:03)
[2018-04-13] MEDS: Nystatin/Diphenhydramine/Lidocaine Mouthwash (Adult) 120 ML Botttle SWISH-SWAL SCH ×4 (08:21→20:04)
--- NOTE | 2018-04-13 09:22 | P.PN ---
Subjective Interval history: Pt doing well, brief salvos of afib this am Physical Exam Vital signs: Vital Signs 04/12/18 11:40 04/12/18 13:10 04/12/18 15:40 Temperature 98.1 F Pulse Rate 63 64 67 Respiratory Rate 16 Blood Pressure 112/62 Pulse Oximetry 98 04/12/18 16:00 04/12/18 18:00 04/12/18 20:00 Temperature 98.4 F 98.6 F Pulse Rate 83 71 109 H Respiratory Rate 16 18 Blood Pressure 109/71 115/64 124/58 L Pulse Oximetry 100 98 99 04/12/18 20:14 04/12/18 20:35 04/13/18 00:00 Temperature 98.4 F Pulse Rate 80 113 H 74 Respiratory Rate 18 Blood Pressure 103/55 L Pulse Oximetry 98 04/13/18 00:30 04/13/18 04:00 04/13/18 08:00 Temperature 98.6 F Pulse Rate 62 79 62 Respiratory Rate 18 Blood Pressure 112/65 Pulse Oximetry 97 04/13/18 08:12 04/13/18 09:13 Temperature 98.5 F Pulse Rate 98 H Respiratory Rate 16 Blood Pressure 103/63 Pulse Oximetry 97 97 Intake & Output 04/12/18 04/13/18 04/13/18 18:59 06:59 18:59 Intake Total 1350 / 1350 1240 / 1240 Output Total 100 / 100 Balance 1250 / 1250 1240 / 1240 Weight 55.2 kg Intake: IV 1020 / 1020 1000 / 1000 Potassium Chlor 20 mEq/NACL 0. 1000 / 1000 45% Inj 1,000 ML @ 84 mls/hr IV .CONT .[id number] [facility] Rx#:[id number] KCl Inj 40 MEQ In 1/2 Normal 1020 / 1020 Saline Inj 1,000 ML @ 84 mls/hr IV.SIG .[id number] [facility] Rx#: [id number] Oral 330 / 330 240 / 240 Output: Urine 100 / 100 Other: # Voids 4 Date of Last Bowel Movement 04/12/18 04/13/18 04/13/18 # Bowel Movements 5 3 - Constitutional no acute distress - Routine HEENT Exam Head: Present: normocephalic, scalp tenderness ENT: Present: mucous membranes moist - Routine Neck Exam Present: supple. Absent: JVD - Routine Respiratory Exam Present: CTA bilaterally. Absent: accessory muscle use - Routine Cardiovascular Exam Present: RRR. Absent: murmur - Routine Abdominal Exam Present: soft - Routine Extremities Exam Absent: edema Results - Labs CBC & Chem 7: 04/12/18 05:40 04/13/18 05:20 Laboratory Results - last 24 hr 04/12/18 04/13/18 11:25 05:20 Sodium 142 Potassium 2.8 L* Chloride 111 H Carbon Dioxide 20.4 L Anion Gap 11 BUN 4 L Creatinine 0.29 L Estimated GFR Greater than 89 Random Glucose 72 L Calcium 7.3 L* Prot Corrected Calcium 8.6 Magnesium 1.9 Total Protein 4.8 L Digoxin 1.1 1.1 - Procedures 2D echo(04/07/18): - Estimated ejection fraction in the range of 65-70%. - The left atrial size is moderately dilated. - Mild aortic valve regurgitation. - There is mild tricuspid valve regurgitation. - Estimated RSVP is 36 mmHg - ICV is normal size with greater than 50% collapse with inspiration. Assessment and Plan - Plan P.afib, in setting of recent chemo, dehydration, electrolyte abnormalities ( today's labs pending) currently SR; discussed risks and benefits of anticoagulation at length with the pt and her daughter, they wish to hold off for now, particularly due to low platelets, and understand she is at increased stroke risk. This plan could potentially be re-evaluated as conditions warrant.
[2018-04-13] MEDS: Potassium Chloride 10 MEQ ER Capsule PO SCH ×2 (11:55→16:33)
--- NOTE | 2018-04-13 15:51 | P.PNIM ---
Subjective Interval history: Pt c/o intermittent nausea which improves with zofran. Nursing reports that pt tolerated 50% of her lunch. Pt reports 6 episodes of small volume diarrhea today. Physical Exam Vital signs: 04/13/18 08:12 04/13/18 09:13 04/13/18 12:00 Temperature 98.5 F Pulse Rate 98 H 89 Respiratory Rate 16 Blood Pressure 103/63 Pulse Oximetry 97 97 Narrative: GENERAL: This is a well-nourished, well-developed patient, in no apparent distress. CARDIOVASCULAR: irregular RESPIRATORY: Clear to auscultation. Breath sounds equal bilaterally. No wheezes , rales, or rhonchi. GASTROINTESTINAL: Abdomen soft, non-tender, nondistended. Normal active bowel sounds MUSCULOSKELETAL: Extremities without clubbing, cyanosis, or edema. NEURO: Alert & Oriented x4 to person, place, time, situation. Moves all ext x4 Results - Labs CBC & Chem 7: 04/17/18 03:31 04/18/18 06:00 - Procedures 2D echo(04/07/18): - Estimated ejection fraction in the range of 65-70%. - The left atrial size is moderately dilated. - Mild aortic valve regurgitation. - There is mild tricuspid valve regurgitation. - Estimated RSVP is 36 mmHg - ICV is normal size with greater than 50% collapse with inspiration. Assessment and Plan - Assessment (1) Atrial fibrillation with RVR Code(s): I48.91 - Unspecified atrial fibrillation Status: Acute Plan: A. 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 On December 13 pt was seen by Dr King and Polo. She had a right ovarian mass with torsion, significant intraperitoneal adhesions and intraperitoneal seeding. Pt underwent robotic-assisted laparoscopic hysterectomy, bilateral salpingo- oophorectomy (with resection of approximately 14 cm torsed right ovarian mass), extensive lysis of adhesions and right hemicolectomy performed. Pathology revealed features of mucinous adenocarcinoma. Pt went to [place] to see establish oncology care. - Over past 3months pt reports being treated with Capacitabine 2wk on/1wk off and this past Saturday was her fourth round of Oxaliplatin. She reports that she is scheduled for Hipec surgery on April 28 per her report. - Pt was developing diarrhea with this treatment and she has had n/v since with abdomen cramps and diarrhea. - Pt presented to the ED on 04/05 with dehydration and was found to have new A.fib/RVR. - Pt was started on IV Cardizem gtt and then weaned off of it. - Pt was started on Metoprolol 25mg po bid. Pt has remained in NSR. Ambulate to assess rate control - 2D echo (04/07/18): - Estimated ejection fraction in the range of 65-70%. - LA is moderately dilated. - Mild aortic valve regurgitation. - Mild tricuspid valve regurgitation. - Estimated RSVP is 36 mmHg - ICV is normal size with greater than 50% collapse with inspiration. - comgmt with GI & Oncology - Cont telemetry. - Stool studies were cdiff neg. - Stool for enteric pathogens negative, antigens for Giardia and cryptosporidium were negative - CT Abd/pelvis (04/06/18): - Probable chronic ileus and most likely gastroenteritis with fluid levels within loops of small bowel not particularly dilated. - Otherwise chronic changes not significantly changed. - Antiemetics PRN. Phenergan and Compazine prn - lomotil prn - Case d/w Dr. Metz (04/08/18). [facility] Oncologist. Input appreciated - will start zyrexa 5mg hs Dr. Metz's recommendations for nausea. - schedule zofran per Dr. Metz's recommendations for diarrhea. - Pain control PRN - Liquid diet as tolerated - Metoprolol stopped d/t hypotension - continue cardizem short acting - continue digoxin 0.25mg daily - check digoxin level in AM - telemetry (04/13) --> intermittent episodes of Afib - Case d/w Cardiology, Dr. Rivera (04/13) - IVFs - continue magic mouth wash & diflucan - PT - supportive care - SCDs for DVT prophylaxis (2) Mucinous adenocarcinoma of appendix Code(s): C18.1 - Malignant neoplasm of appendix Status: Acute
[2018-04-13] MEDS: Digoxin 250 MCG Tablet PO SCH (16:33)
[2018-04-13] MEDS: Fluconazole 100 MG Tablet PO SCH (20:02)
[2018-04-14] MEDS: dilTIAZem 60 MG Tablet PO SCH ×3 (05:13→18:05)
[2018-04-14] MEDS: Pantoprazole Inj 40 MG Vial IV.PUSH SCH ×2 (05:13→18:05)
[2018-04-14] MEDS: KCL 20 mEq/NACL 0.45% Inj 1,000 ML IV.CONT SCH ×2 (05:16→18:03)
[2018-04-14 07:56] LABS: Baso % (Auto) 0.1 % (0.0-2.0); Eos % (Auto) 0.7 % (0.0-4.0); Hematocrit 31.6 % (35.0-46.0); Lymph # (Auto) 0.5 th/mm3 (1.0-4.8); Lymph % (Auto) 11.5 % (9.0-44.0); Mean Corpuscular HGB Conc 34.7 % (32.0-36.0); Mean Corpuscular Hemoglobin 34.1 pg (27.0-34.0); Mean Corpuscular Volume 98.4 fL (80.0-100.0); Mean Platelet Volume 7.2 fL (7.0-11.0); Mono # (Auto) 0.5 th/mm3 (0.0-0.9); Mono % (Auto) 10.8 % (0.0-8.0); Neut # (Auto) 3.4 th/mm3 (1.8-7.7); Neut % (Auto) 76.9 % (16.0-70.0); Platelet Count 152 th/mm3 (150-450); Red Blood Count 3.21 mil/mm3 (4.00-5.30); Red Cell Distribution Width 20.4 % (11.6-17.2); White Blood Count 4.4 th/mm3 (4.0-11.0)
[2018-04-14 08:13] LABS: Anion Gap 11 meq/L (5-15); Blood Urea Nitrogen 6 mg/dL (7-18); Calcium 7.5 mg/dL (8.5-10.1); Carbon Dioxide 24.4 meq/L (21.0-32.0); Chloride 109 meq/L (98-107); Glomerular Filtration Rate Greater Than 89 mL/min (>89); Glucose,Random 102 mg/dL (74-106); Magnesium 1.8 mg/dL (1.5-2.5); Potassium 3.5 meq/L (3.5-5.1); Sodium 144 meq/L (136-145)
--- NOTE | 2018-04-14 08:25 | P.PN ---
Subjective Interval history: Pt continues in NSR, a lot of nausea/abdm cramps. Physical Exam Vital signs: Vital Signs 04/13/18 09:13 04/13/18 12:00 04/13/18 15:31 Temperature 98.0 F Pulse Rate 91 H 89 Respiratory Rate 20 Blood Pressure 117/70 Pulse Oximetry 97 99 04/13/18 16:00 04/13/18 20:00 04/13/18 20:12 Temperature 98.6 F 98.1 F Pulse Rate 87 90 79 Respiratory Rate 18 18 Blood Pressure 128/75 119/62 Pulse Oximetry 97 98 04/14/18 00:00 04/14/18 00:24 04/14/18 04:00 Temperature 98.7 F 98.3 F Pulse Rate 80 70 92 H Respiratory Rate 16 16 Blood Pressure 109/64 103/65 Pulse Oximetry 95 97 04/14/18 04:01 04/14/18 07:48 Temperature Pulse Rate 71 92 H Respiratory Rate Blood Pressure Pulse Oximetry Intake & Output 04/13/18 04/14/18 04/14/18 18:59 06:59 18:59 Intake Total 1910 / 1910 1480 / 1480 Output Total 200 / 200 500 / 500 Balance 1710 / 1710 980 / 980 Weight 56.1 kg Intake: IV 1000 / 1000 1000 / 1000 Potassium Chlor 20 mEq/NACL 0. 1000 / 1000 1000 / 1000 45% Inj 1,000 ML @ 84 mls/hr IV .CONT .[id number] [facility] Rx#:[id number] Oral 910 / 910 480 / 480 Output: Urine 200 / 200 500 / 500 Other: # Voids 6 5 Date of Last Bowel Movement 04/13/18 04/14/18 # Bowel Movements 6 3 - Constitutional no acute distress - Routine HEENT Exam Head: Present: normocephalic Eye: Present: EOMI - Routine Neck Exam Present: supple. Absent: JVD - Routine Respiratory Exam Present: CTA bilaterally. Absent: accessory muscle use - Routine Cardiovascular Exam Present: RRR. Absent: murmur - Routine Abdominal Exam Present: distended - Routine Extremities Exam Absent: edema Results - Labs CBC & Chem 7: 04/14/18 06:56 04/14/18 06:56 Laboratory Results - last 24 hr 04/13/18 04/14/18 04/14/18 20:29 06:56 06:56 WBC 4.4 RBC 3.21 L Hgb 11.0 L Hct 31.6 L MCV 98.4 MCH 34.1 H MCHC 34.7 RDW 20.4 H Plt Count 152 D MPV 7.2 Neut % (Auto) 76.9 H Lymph % (Auto) 11.5 [place] % (Auto) 10.8 H Eos % (Auto) 0.7 Baso % (Auto) 0.1 Neut # (Auto) 3.4 Lymph # (Auto) 0.5 L [place] # (Auto) 0.5 Eos # (Auto) 0.0 Baso # (Auto) 0.0 WBC Differential . Differential Comment Auto diff final Sodium 144 Potassium 3.6 D 3.5 Chloride 109 H Carbon Dioxide 24.4 Anion Gap 11 BUN 6 L Creatinine 0.34 L Estimated GFR Greater than 89 Random Glucose 102 Calcium 7.5 L Magnesium 1.8 - Procedures 2D echo(04/07/18): - Estimated ejection fraction in the range of 65-70%. - The left atrial size is moderately dilated. - Mild aortic valve regurgitation. - There is mild tricuspid valve regurgitation. - Estimated RSVP is 36 mmHg - ICV is normal size with greater than 50% collapse with inspiration. Assessment and Plan - Plan P.afib, in setting of recent chemo, dehydration, electrolyte abnormalities currently SR; discussed risks and benefits of anticoagulation at length with the pt and her daughter, they wish to hold off for now, particularly due to low platelets, and understand she is at increased stroke risk. This plan could potentially be re-evaluated as conditions warrant. No real changes today; will sign off but be available as needed, she should f/u with Dr. Martínez as an outpt.
[2018-04-14 08:27] LABS: Digoxin 1.3 ng/mL (0.8-2.0)
[2018-04-14] MEDS: Promethazine 25 MG Supp RECTAL PRN (08:42)
[2018-04-14] MEDS: Nystatin/Diphenhydramine/Lidocaine Mouthwash (Adult) 120 ML Botttle SWISH-SWAL SCH ×4 (08:53→21:36)
--- NOTE | 2018-04-14 08:53 | P.PNIM ---
Subjective Interval history: taking some liquids still with small liquid bm's still with nausea. no vomiting x 24hrs. Physical Exam Vital signs: Vital Signs 04/13/18 09:13 04/13/18 12:00 04/13/18 15:31 Temperature 98.0 F Pulse Rate 91 H 89 Respiratory Rate 20 Blood Pressure 117/70 Pulse Oximetry 97 99 04/13/18 16:00 04/13/18 20:00 04/13/18 20:12 Temperature 98.6 F 98.1 F Pulse Rate 87 90 79 Respiratory Rate 18 18 Blood Pressure 128/75 119/62 Pulse Oximetry 97 98 04/14/18 00:00 04/14/18 00:24 04/14/18 04:00 Temperature 98.7 F 98.3 F Pulse Rate 80 70 92 H Respiratory Rate 16 16 Blood Pressure 109/64 103/65 Pulse Oximetry 95 97 04/14/18 04:01 04/14/18 07:48 04/14/18 08:00 Temperature 98.6 F Pulse Rate 71 92 H 77 Respiratory Rate 20 Blood Pressure 143/76 H Pulse Oximetry 98 Intake & Output 04/13/18 04/14/18 04/14/18 18:59 06:59 18:59 Intake Total 1910 / 1910 1480 / 1480 Output Total 200 / 200 500 / 500 Balance 1710 / 1710 980 / 980 Weight 56.1 kg Intake: IV 1000 / 1000 1000 / 1000 Potassium Chlor 20 mEq/NACL 0. 1000 / 1000 1000 / 1000 45% Inj 1,000 ML @ 84 mls/hr IV .CONT .[id number] [facility] OF [facility] Rx#:[id number] Oral 910 / 910 480 / 480 Output: Urine 200 / 200 500 / 500 Other: # Voids 6 5 Date of Last Bowel Movement 04/13/18 04/14/18 04/14/18 # Bowel Movements 6 3 heart reg lung cta abd bs/nt ext no edema Results - Labs CBC & Chem 7: 04/14/18 06:56 04/14/18 06:56 Laboratory Results - last 24 hr 04/13/18 04/14/18 04/14/18 20:29 06:56 06:56 WBC 4.4 RBC 3.21 L Hgb 11.0 L Hct 31.6 L MCV 98.4 MCH 34.1 H MCHC 34.7 RDW 20.4 H Plt Count 152 D MPV 7.2 Neut % (Auto) 76.9 H Lymph % (Auto) 11.5 [place] % (Auto) 10.8 H Eos % (Auto) 0.7 Baso % (Auto) 0.1 Neut # (Auto) 3.4 Lymph # (Auto) 0.5 L [place] # (Auto) 0.5 Eos # (Auto) 0.0 Baso # (Auto) 0.0 WBC Differential . Differential Comment Auto diff final Sodium 144 Potassium 3.6 D 3.5 Chloride 109 H Carbon Dioxide 24.4 Anion Gap 11 BUN 6 L Creatinine 0.34 L Estimated GFR Greater than 89 Random Glucose 102 Calcium 7.5 L Magnesium 1.8 Digoxin 1.3 - Procedures 2D echo(04/07/18): - Estimated ejection fraction in the range of 65-70%. - The left atrial size is moderately dilated. - Mild aortic valve regurgitation. - There is mild tricuspid valve regurgitation. - Estimated RSVP is 36 mmHg - ICV is normal size with greater than 50% collapse with inspiration. Assessment and Plan - Assessment (1) Atrial fibrillation with RVR Code(s): I48.91 - Status: Acute Plan: A. 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 On December 13 pt was seen by Dr King and Polo. She had a right ovarian mass with torsion, significant intraperitoneal adhesions and intraperitoneal seeding. Pt underwent robotic-assisted laparoscopic hysterectomy, bilateral salpingo- oophorectomy (with resection of approximately 14 cm torsed right ovarian mass), extensive lysis of adhesions and right hemicolectomy performed. Pathology revealed features of mucinous adenocarcinoma. Pt went to [place] to see establish oncology care. - Over past 3months pt reports being treated with Capacitabine 2wk on/1wk off and this past Saturday was her fourth round of Oxaliplatin. She reports that she is scheduled for Hipec surgery on April 28 per her report. - Pt was developing diarrhea with this treatment and she has had n/v since with abdomen cramps and diarrhea. - Pt presented to the ED on 04/05 with dehydration and was found to have new A.fib/RVR. - Pt was started on IV Cardizem gtt and then weaned off of it. - Pt was started on Metoprolol 25mg po bid. Pt has remained in NSR. Ambulate to assess rate control - 2D echo (04/07/18): - Estimated ejection fraction in the range of 65-70%. - LA is moderately dilated. - Mild aortic valve regurgitation. - Mild tricuspid valve regurgitation. - Estimated RSVP is 36 mmHg - ICV is normal size with greater than 50% collapse with inspiration. - comgmt with GI & Oncology - Cont telemetry. - Stool studies were cdiff neg. - Stool for enteric pathogens negative, antigens for Giardia and cryptosporidium were negative - CT Abd/pelvis (04/06/18): - Probable chronic ileus and most likely gastroenteritis with fluid levels within loops of small bowel not particularly dilated. - Otherwise chronic changes not significantly changed. - Antiemetics PRN. Phenergan and Compazine prn - lomotil prn - Case d/w Dr. Metz (04/08/18). [facility] Oncologist. Input appreciated - will start zyrexa 5mg hs Dr. Metz's recommendations for nausea. - schedule zofran per Dr. Metz's recommendations for diarrhea. - Pain control PRN - Liquid diet as tolerated - Metoprolol stopped d/t hypotension - continue cardizem short acting. unable to swallow larger pill - continue digoxin 0.25mg daily - IVFs -schedule phenergan - continue magic mouth wash & diflucan - PT - supportive care - SCDs for DVT prophylaxis (2) Mucinous adenocarcinoma of appendix Code(s): C18.1 - Status: Acute
[2018-04-14] MEDS: Diphenoxylate/Atropine 2.5/0.025 MG Tablet PO SCH ×2 (08:55→21:33)
[2018-04-14] MEDS: Digoxin 250 MCG Tablet PO SCH (08:55)
[2018-04-14] MEDS: Sodium Chloride 0.9% 2 ML Flush BID IV.FLUSH SCH ×2 (11:47→21:33)
[2018-04-14] MEDS: Potassium Chloride 10 MEQ ER Capsule PO SCH ×2 (14:23→21:33)
--- NOTE | 2018-04-14 18:23 | P.PNONC ---
Subjective Interval history: Resting in bed. Worked with physical therapy today. Fatigue Son at bedside. Objective Vital Signs/Intake & Output: Vital Signs 04/13/18 20:00 04/13/18 20:12 04/14/18 00:00 Temperature 98.1 F 98.7 F Pulse Rate 90 79 80 Respiratory Rate 18 16 Blood Pressure 119/62 109/64 Pulse Oximetry 98 95 04/14/18 00:24 04/14/18 04:00 04/14/18 04:01 Temperature 98.3 F Pulse Rate 70 92 H 71 Respiratory Rate 16 Blood Pressure 103/65 Pulse Oximetry 97 04/14/18 07:48 04/14/18 08:00 04/14/18 09:05 Temperature 98.6 F Pulse Rate 92 H 77 Respiratory Rate 20 Blood Pressure 143/76 H Pulse Oximetry 98 97 04/14/18 11:52 04/14/18 12:00 04/14/18 16:04 Temperature 98.9 F Pulse Rate 100 H 87 Respiratory Rate 18 Blood Pressure 105/71 98/47 L Pulse Oximetry 98 04/14/18 18:01 Temperature 98.7 F Pulse Rate 78 Respiratory Rate 18 Blood Pressure 116/66 Pulse Oximetry 96 Intake & Output 04/13/18 04/14/18 04/14/18 18:59 06:59 18:59 Intake Total 1910 / 1910 1480 / 1480 1000 / 1000 Output Total 200 / 200 500 / 500 Balance 1710 / 1710 980 / 980 1000 / 1000 Weight 56.1 kg Intake: IV 1000 / 1000 1000 / 1000 1000 / 1000 Potassium Chlor 20 mEq/NACL 0. 1000 / 1000 1000 / 1000 1000 / 1000 45% Inj 1,000 ML @ 84 mls/hr IV .CONT .[id number] [facility] Rx#:[id number] Oral 910 / 910 480 / 480 Output: Urine 200 / 200 500 / 500 Other: # Voids 6 5 Date of Last Bowel Movement 04/13/18 04/14/18 04/14/18 # Bowel Movements 6 3 Result Diagrams: 04/14/18 06:56 04/14/18 06:56 Laboratory Results: Laboratory Results - last 24 hr 04/13/18 04/14/18 04/14/18 20:29 06:56 06:56 WBC 4.4 RBC 3.21 L Hgb 11.0 L Hct 31.6 L MCV 98.4 MCH 34.1 H MCHC 34.7 RDW 20.4 H Plt Count 152 D MPV 7.2 Neut % (Auto) 76.9 H Lymph % (Auto) 11.5 [place] % (Auto) 10.8 H Eos % (Auto) 0.7 Baso % (Auto) 0.1 Neut # (Auto) 3.4 Lymph # (Auto) 0.5 L [place] # (Auto) 0.5 Eos # (Auto) 0.0 Baso # (Auto) 0.0 WBC Differential . Differential Comment Auto diff final Sodium 144 Potassium 3.6 D 3.5 Chloride 109 H Carbon Dioxide 24.4 Anion Gap 11 BUN 6 L Creatinine 0.34 L Estimated GFR Greater than 89 Random Glucose 102 Calcium 7.5 L Magnesium 1.8 Digoxin 1.3 Medications: Active Medications Generic Name Dose Route Start Last Admin Trade Name Freq PRN Reason Stop Dose Admin Hydrocodone Bitart/Acetaminophen 1 tab 04/06/18 11:04 04/14/18 14:23 [place] 5/325 PO 1 tab Q4H PRN Administration pain 3-10 Digoxin 250 mcg 04/13/18 16:00 04/14/18 08:55 Lanoxin PO 250 mcg DAILY [facility] Administration Diltiazem HCl 60 mg 04/10/18 18:00 04/14/18 18:05 Cardizem PO 60 mg Q6HR [facility] Administration Diphenoxylate HCl/Atropine 1 tab 04/12/18 21:00 04/14/18 08:55 Lomotil PO 1 tab BID [facility] Administration Fluconazole 100 mg 04/11/18 20:00 04/13/18 20:02 Diflucan PO 100 mg Q24H [facility] Administration Potassium Chloride/Sodium Chloride 1,000 mls @ 84 mls/hr 04/12/18 16:30 04/14 18:03 Potassium Chlor 20 Meq/Nacl 0.45% Inj IV.CONT 84 mls/hr .[id number] [facility] Administration Multi-Ingredient Mouthwash/Gargle 10 ml 04/11/18 21:00 04/14/18 18:05 Magic Mouthwash Adult Liq SWISH-SWAL Not Given ACHS [facility] Olanzapine 5 mg 04/09/18 21:00 04/13/18 20:04 Zyprexa PO 5 mg HS [facility] Administration Ondansetron HCl 4 mg 04/06/18 18:15 04/14/18 09:44 Zofran Inj IV.PUSH 4 mg Q4H PRN Administration n/v Pantoprazole Sodium 40 mg 04/07/18 17:00 04/14/18 18:05 Protonix Inj IV.PUSH 40 mg Q12H [facility] Administration Potassium Chloride 10 meq 04/14/18 10:00 04/14/18 14:23 Kcl PO Not Given BID [facility] Prochlorperazine Edisylate 10 mg 04/06/18 20:11 04/14/18 14:23 Compazine Inj IV.PUSH 10 mg Q6H PRN Administration n/v Promethazine HCl 25 mg 04/06/18 20:09 04/14/18 08:42 Phenergan Supp RECTAL 25 mg Q6H PRN Administration NAUSEA/VOMITING Promethazine HCl 25 mg 04/14/18 09:00 04/14/18 18:05 Phenergan PO 25 mg TIDAC [facility] Administration Sodium Chloride 2 ml 04/08/18 21:00 04/14/18 11:47 Ns Flush IV.FLUSH 2 ml BID [facility] Administration Objective Remarks: GENERAL: Well-nourished, well-developed patient. SKIN: Warm and dry. HEAD: Normocephalic. EYES: No scleral icterus. No injection or drainage. RESPIRATORY: No accessory muscle use. GASTROINTESTINAL: distended abdomen EXTREMITIES: No edema. NEUROLOGICAL: No obvious focal deficit. Assessment/Plan - Plan Ms. 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 Under the care of Dr. King and Dr Cuellar she underwent robotic assisted laparoscopic hysterectomy, bilateral salpingo- oophrectomy with resection of approximately 14 cm torsed right ovarian mass with extensive lysis of adhesions and right hemicolectomy performed. Care was established at [facility] and she was treated with 4 cycles of capecitabine and oxaliplatin. She receives capecitabine 2 weeks on, 1 week off and oxaliplatin every 3rd week. Her last treatment was oxaliplatin last Saturday. HIPEC surgery scheduled for 04/28/2018. Patient was admitted with GI symptoms and during hospitalization was also found to have A. fib RVR. Plan: 1. Mucinous adenocarcinoma, under the care of [facility]. Status post 4 cycles of capecitabine and oxaliplatin. HIPEC surgery scheduled for2017 2. GI symptoms: diarrhea, nausea, abdominal distention. Continue prn medications. 3. Atrial fibrillation, currently on digoxin and diltiazem. Management per attending.
[2018-04-14] MEDS: Fluconazole 100 MG Tablet PO SCH (21:33)
[2018-04-15] MEDS: dilTIAZem 60 MG Tablet PO SCH ×5 (00:26→23:35)
[2018-04-15] MEDS: KCL 20 mEq/NACL 0.45% Inj 1,000 ML IV.CONT SCH ×2 (03:15→17:20)
[2018-04-15] MEDS: Pantoprazole Inj 40 MG Vial IV.PUSH SCH ×2 (06:02→17:18)
[2018-04-15 07:23] LABS: Anion Gap 14 meq/L (5-15); Blood Urea Nitrogen 10 mg/dL (7-18); Calcium 7.1 mg/dL (8.5-10.1); Carbon Dioxide 21.3 meq/L (21.0-32.0); Chloride 107 meq/L (98-107); Glomerular Filtration Rate Greater Than 89 mL/min (>89); Glucose,Random 83 mg/dL (74-106); Potassium 3.8 meq/L (3.5-5.1); Sodium 142 meq/L (136-145)
[2018-04-15 08:06] LABS: Total Protein 4.9 g/dL (6.4-8.2)
[2018-04-15] MEDS: Diphenoxylate/Atropine 2.5/0.025 MG Tablet PO SCH ×2 (08:25→20:14)
[2018-04-15] MEDS: Potassium Chloride 10 MEQ ER Capsule PO SCH ×2 (08:25→20:14)
[2018-04-15] MEDS: Nystatin/Diphenhydramine/Lidocaine Mouthwash (Adult) 120 ML Botttle SWISH-SWAL SCH ×4 (08:25→20:15)
[2018-04-15] MEDS: Digoxin 250 MCG Tablet PO SCH (08:25)
[2018-04-15] MEDS: Sodium Chloride 0.9% 2 ML Flush BID IV.FLUSH SCH ×2 (08:26→20:05)
--- NOTE | 2018-04-15 10:14 | P.PNIM ---
Subjective Interval history: pt says had bad day yesterday. n/v/d. missed dinner fell asleep. diarrhea this AM. near syncope and vasovagal yesterday and sbp 50s Physical Exam Vital signs: Vital Signs 04/14/18 11:52 04/14/18 12:00 04/14/18 16:00 Temperature 98.9 F Pulse Rate 100 H 87 87 Respiratory Rate 18 Blood Pressure 105/71 Pulse Oximetry 98 04/14/18 16:04 04/14/18 18:01 04/14/18 21:23 Temperature 98.7 F 98.0 F Pulse Rate 78 90 Respiratory Rate 18 17 Blood Pressure 98/47 L 116/66 112/72 Pulse Oximetry 96 96 04/15/18 00:22 04/15/18 00:29 04/15/18 04:00 Temperature 98.1 F 98.7 F Pulse Rate 113 H 86 90 Respiratory Rate 19 15 Blood Pressure 90/62 L 92/72 L 103/62 Pulse Oximetry 93 L 94 L 04/15/18 06:01 Temperature Pulse Rate Respiratory Rate Blood Pressure 117/65 Pulse Oximetry Intake & Output 04/14/18 04/15/18 04/15/18 18:59 06:59 18:59 Intake Total 1300 / 1300 990 / 990 Output Total 100 / 100 Balance 1300 / 1300 890 / 890 Weight 56.2 kg Intake: IV 1000 / 1000 990 / 990 Potassium Chlor 20 mEq/NACL 0. 1000 / 1000 990 / 990 45% Inj 1,000 ML @ 84 mls/hr IV .CONT .[id number] [facility] Rx#:[id number] Oral 300 / 300 Output: Urine 100 / 100 Other: # Voids 3 Date of Last Bowel Movement 04/14/18 04/14/18 # Bowel Movements 5 1 heart reg lung cta abd mild distention. minimal bs. ext no edema Results - Labs CBC & Chem 7: 04/14/18 06:56 04/15/18 06:16 Laboratory Results - last 24 hr 04/15/18 06:16 Sodium 142 Potassium 3.8 Chloride 107 Carbon Dioxide 21.3 Anion Gap 14 BUN 10 Creatinine 0.34 L Estimated GFR Greater than 89 Random Glucose 83 Calcium 7.1 L* Prot Corrected Calcium 8.3 L Total Protein 4.9 L - Procedures 2D echo(04/07/18): - Estimated ejection fraction in the range of 65-70%. - The left atrial size is moderately dilated. - Mild aortic valve regurgitation. - There is mild tricuspid valve regurgitation. - Estimated RSVP is 36 mmHg - ICV is normal size with greater than 50% collapse with inspiration. Assessment and Plan - Assessment (1) Atrial fibrillation with RVR Code(s): I48.91 - Unspecified atrial fibrillation Status: Acute Plan: A. 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 On December 13 pt was seen by Dr King and Polo. She had a right ovarian mass with torsion, significant intraperitoneal adhesions and intraperitoneal seeding. Pt underwent robotic-assisted laparoscopic hysterectomy, bilateral salpingo- oophorectomy (with resection of approximately 14 cm torsed right ovarian mass), extensive lysis of adhesions and right hemicolectomy performed. Pathology revealed features of mucinous adenocarcinoma. Pt went to [place] to see establish oncology care. - Over past 3months pt reports being treated with Capacitabine 2wk on/1wk off and this past Saturday was her fourth round of Oxaliplatin. She reports that she is scheduled for Hipec surgery on April 28 per her report. - Pt was developing diarrhea with this treatment and she has had n/v since with abdomen cramps and diarrhea. - Pt presented to the ED on 04/05 with dehydration and was found to have new A.fib/RVR. - Pt was started on IV Cardizem gtt and then weaned off of it. - Pt was started on Metoprolol 25mg po bid. Pt has remained in NSR. Ambulate to assess rate control - 2D echo (04/07/18): - Estimated ejection fraction in the range of 65-70%. - LA is moderately dilated. - Mild aortic valve regurgitation. - Mild tricuspid valve regurgitation. - Estimated RSVP is 36 mmHg - ICV is normal size with greater than 50% collapse with inspiration. - comgmt with GI & Oncology - Cont telemetry. - Stool studies were cdiff neg. - Stool for enteric pathogens negative, antigens for Giardia and cryptosporidium were negative - CT Abd/pelvis (04/06/18): - Probable chronic ileus and most likely gastroenteritis with fluid levels within loops of small bowel not particularly dilated. - Otherwise chronic changes not significantly changed. - Antiemetics PRN. Phenergan and Compazine prn - lomotil prn - Case d/w Dr. Metz (04/08/18). [facility] Oncologist. Input appreciated - will start zyrexa 5mg hs Dr. Metz's recommendations for nausea. - schedule zofran per Dr. Metz's recommendations for diarrhea. - Pain control PRN - Liquid diet as tolerated - Metoprolol stopped d/t hypotension - continue cardizem short acting. unable to swallow larger pill - continue digoxin 0.25mg daily - IVFs -scheduled phenergan - continue magic mouth wash & diflucan - PT - supportive care - SCDs for DVT prophylaxis discussed with RN. cont current meds. attempt more po intake today and oob/ ambulation. (2) Mucinous adenocarcinoma of appendix Code(s): C18.1 - Malignant neoplasm of appendix Status: Acute
[2018-04-15] MEDS: Fluconazole 100 MG Tablet PO SCH (20:14)
[2018-04-16] MEDS: Pantoprazole Inj 40 MG Vial IV.PUSH SCH ×2 (05:11→17:34)
[2018-04-16] MEDS: dilTIAZem 60 MG Tablet PO SCH ×3 (05:12→17:34)
[2018-04-16] MEDS: KCL 20 mEq/NACL 0.45% Inj 1,000 ML IV.CONT SCH (05:21)
[2018-04-16 05:51] LABS: Anion Gap 11 meq/L (5-15); Blood Urea Nitrogen 9 mg/dL (7-18); Carbon Dioxide 22.5 meq/L (21.0-32.0); Chloride 107 meq/L (98-107); Glomerular Filtration Rate Greater Than 89 mL/min (>89); Glucose,Random 90 mg/dL (74-106); Potassium 3.4 meq/L (3.5-5.1); Sodium 140 meq/L (136-145)
[2018-04-16] MEDS ORDERED: Sod Chloride 0.9% Inj 1,000 ML IV.SIG ONE (06:00)
[2018-04-16 06:10] LABS: Total Protein 4.7 g/dL (6.4-8.2)
--- NOTE | 2018-04-16 09:16 | P.PNIM ---
Subjective Interval history: pt with persistent n/v/d. poor po intake abdomen pain/cramping asking for gi reconsult for endoscopy c/o severe acid reflux. Physical Exam Vital signs: Vital Signs 04/15/18 10:30 04/15/18 11:00 04/15/18 12:00 Temperature 98.6 F Pulse Rate 96 H 90 Respiratory Rate 18 Blood Pressure 132/76 Pulse Oximetry 100 98 04/15/18 15:00 04/15/18 16:00 04/15/18 17:14 Temperature 98 F Pulse Rate 60 112 H Respiratory Rate 18 Blood Pressure 127/75 Pulse Oximetry 100 99 04/15/18 20:00 04/16/18 00:00 04/16/18 04:00 Temperature 98.2 F Pulse Rate 107 H 82 84 Respiratory Rate 17 18 Blood Pressure 152/86 H 105/64 Pulse Oximetry 93 L 93 L 04/16/18 05:00 Temperature 98.0 F Pulse Rate 90 Respiratory Rate 18 Blood Pressure 123/70 Pulse Oximetry 92 L Intake & Output 04/15/18 04/16/18 04/16/18 18:59 06:59 18:59 Intake Total 1480 / 1480 1989 Output Total 560 / 560 400 / 400 Balance 920 / 920 1590 / 1590 Weight 58.9 kg Intake: IV 1000 / 1000 1989 Potassium Chlor 20 mEq/NACL 0. 1000 / 1000 990 / 990 45% Inj 1,000 ML @ 84 mls/hr IV .CONT .[id number] [facility] Rx#:[id number] NS Inj 1,000 ML @ As Directed 1000 / 1000 IV.SIG .Q0M ONE Rx#:[id number] Oral 480 / 480 Output: Urine 560 / 560 400 / 400 Other: Date of Last Bowel Movement 04/15/18 04/15/18 # Bowel Movements 5 1 lying in bed heartreg lung cta abd no bs/distended ext no edema Results - Labs CBC & Chem 7: 04/14/18 06:56 04/16/18 03:32 Laboratory Results - last 24 hr 04/16/18 03:32 Sodium 140 Potassium 3.4 L Chloride 107 Carbon Dioxide 22.5 Anion Gap 11 BUN 9 Creatinine 0.31 L Estimated GFR Greater than 89 Random Glucose 90 Calcium 7.0 L* Prot Corrected Calcium 8.3 L Total Protein 4.7 L - Procedures 2D echo(04/07/18): - Estimated ejection fraction in the range of 65-70%. - The left atrial size is moderately dilated. - Mild aortic valve regurgitation. - There is mild tricuspid valve regurgitation. - Estimated RSVP is 36 mmHg - ICV is normal size with greater than 50% collapse with inspiration. Assessment and Plan - Assessment (1) Atrial fibrillation with RVR Code(s): I48.91 - Unspecified atrial fibrillation Status: Acute Plan: A. 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 On December 13 pt was seen by Dr King and Polo. She had a right ovarian mass with torsion, significant intraperitoneal adhesions and intraperitoneal seeding. Pt underwent robotic-assisted laparoscopic hysterectomy, bilateral salpingo- oophorectomy (with resection of approximately 14 cm torsed right ovarian mass), extensive lysis of adhesions and right hemicolectomy performed. Pathology revealed features of mucinous adenocarcinoma. Pt went to [place] to see establish oncology care. - Over past 3months pt reports being treated with Capacitabine 2wk on/1wk off and this past Saturday was her fourth round of Oxaliplatin. She reports that she is scheduled for Hipec surgery on April 28 per her report. - Pt was developing diarrhea with this treatment and she has had n/v since with abdomen cramps and diarrhea. - Pt presented to the ED on 04/05 with dehydration and was found to have new A.fib/RVR. - Pt was started on IV Cardizem gtt and then weaned off of it. - Pt was started on Metoprolol 25mg po bid. Pt has remained in NSR. Ambulate to assess rate control - 2D echo (04/07/18): - Estimated ejection fraction in the range of 65-70%. - LA is moderately dilated. - Mild aortic valve regurgitation. - Mild tricuspid valve regurgitation. - Estimated RSVP is 36 mmHg - ICV is normal size with greater than 50% collapse with inspiration. - comgmt with GI & Oncology - Cont telemetry. - Stool studies were cdiff neg. - Stool for enteric pathogens negative, antigens for Giardia and cryptosporidium were negative - CT Abd/pelvis (04/06/18): - Probable chronic ileus and most likely gastroenteritis with fluid levels within loops of small bowel not particularly dilated. - Otherwise chronic changes not significantly changed. - Antiemetics PRN. Phenergan and Compazine prn - lomotil prn - Case d/w Dr. Metz (04/08/18). [facility] Oncologist. Input appreciated - will start zyrexa 5mg hs Dr. Metz's recommendations for nausea. - schedule zofran per Dr. Metz's recommendations for diarrhea. - Pain control PRN - Liquid diet as tolerated - Metoprolol stopped d/t hypotension - continue cardizem short acting. unable to swallow larger pill - continue digoxin 0.25mg daily - IVFs -scheduled phenergan - continue magic mouth wash & diflucan - PT - supportive care - SCDs for DVT prophylaxis long discussion with pt. reviewed the fact that she had 26cm right colon/cecum and 12cm terminal ileum removed. ct showed some right colon distention ?chronic ileus and some mild small bowel distention. certainly a viral gastroenteritis should have run it's course. She has has diarrhea problems from chemo in past. her stool studies negative for infection. ?colonic/small bowel ileus or adhesions. Ask GI to reevaluate her. repeat the CT a/p from about 1 1/2 weeks ago. cont ivf and symptomatic support. (2) Mucinous adenocarcinoma of appendix Code(s): C18.1 - Malignant neoplasm of appendix Status: Acute
[2018-04-16] MEDS: Potassium Chloride 10 MEQ ER Capsule PO SCH ×2 (09:30→22:01)
[2018-04-16] MEDS: Nystatin/Diphenhydramine/Lidocaine Mouthwash (Adult) 120 ML Botttle SWISH-SWAL SCH ×4 (09:30→22:03)
[2018-04-16] MEDS: Diphenoxylate/Atropine 2.5/0.025 MG Tablet PO SCH (09:30)
[2018-04-16] MEDS: Digoxin 250 MCG Tablet PO SCH (09:30)
[2018-04-16] MEDS: Sodium Chloride 0.9% 2 ML Flush BID IV.FLUSH SCH ×2 (09:35→22:11)
[2018-04-16] MEDS ORDERED: Diatrizoate Meglum/Diatrizoate Sod Liq 9 ML UDC PO ONE (10:00)
--- NOTE | 2018-04-16 12:50 | P.PNGI ---
Subjective Interval history: 73-year-old female who has been in the hospital since 04/05/2018 patient has significant history of mucous adenocarcinoma appendiceal origin. She has been noted per the history and patient to have chronic ileus as well as nausea vomiting and diarrhea. Gastroenterology was initially consulted on 04/07/2018 for uncontrolled nausea and vomiting diarrhea and now reconsulted on 04/16/2018 for some of the same symptoms.. Patient initially was offered EGD colonoscopy as well as symptom management but she refused any GI procedures during that time. She is now still suffering with nausea, decreased appetite but no vomiting for now. Patient states today was the first day that she felt like she had about 50% of her breakfast. Oral cavity is very dry which gives her symptoms of dysphasia when swallowing pills. She is a known patient of Dr. Buchanan, last GI testing noted was around 2015. Patient currently notes at least 5 diarrheal stools a day brown , liquid but no obvious blood. C. difficile check on 04/06/2018 was negative. Currently patient's abdomen is distended, taut , minimal if any bowel sounds which could be related to acute on chronic ileus. CT scan is pending. Patient is receiving no chemotherapy at this time. Hemoglobin on 04/14/2018 was 11. <Isabel Krishnamurthy - Last Filed: 04/16/18 12:52> Physical Exam Vital signs: Vital Signs 04/15/18 15:00 04/15/18 16:00 04/15/18 17:14 Temperature 98 F Pulse Rate 60 112 H Respiratory Rate 18 Blood Pressure 127/75 Pulse Oximetry 100 99 04/15/18 20:00 04/16/18 00:00 04/16/18 04:00 Temperature 98.2 F Pulse Rate 107 H 82 84 Respiratory Rate 17 18 Blood Pressure 152/86 H 105/64 Pulse Oximetry 93 L 93 L 04/16/18 05:00 04/16/18 08:00 04/16/18 12:00 Temperature 98.0 F 97.6 F 97.3 F L Pulse Rate 90 105 H 115 H Respiratory Rate 18 16 16 Blood Pressure 123/70 91/67 L 103/69 Pulse Oximetry 92 L 92 L 95 Intake & Output 04/15/18 04/16/18 04/16/18 18:59 06:59 18:59 Intake Total 1480 / 1480 1989 Output Total 560 / 560 400 / 400 Balance 920 / 920 1590 / 1590 Weight 58.9 kg Intake: IV 1000 / 1000 1989 Potassium Chlor 20 mEq/NACL 0. 1000 / 1000 990 / 990 45% Inj 1,000 ML @ 84 mls/hr IV .CONT .[id number] [facility] Rx#:[id number] NS Inj 1,000 ML @ As Directed 1000 / 1000 IV.SIG .Q0M [facility] Rx#:[id number] Oral 480 / 480 Output: Urine 560 / 560 400 / 400 Other: Date of Last Bowel Movement 04/15/18 04/15/18 04/16/18 # Bowel Movements 5 1 - Constitutional moderate distress, thin, cachectic, cooperative - Routine HEENT Exam Head: Present: normocephalic ENT: Present: mucous membranes dry - Routine Neck Exam Present: supple - Routine Respiratory Exam Present: accessory muscle use, decreased breath sounds (Low volumes) - Routine Cardiovascular Exam Present: S1, S2, irregular rhythm - Routine Abdominal Exam Present: distended (Mild to moderate with semifirm tautness, minimal if any bowel sounds, tympany) <Isabel Krishnamurthy - Last Filed: 04/16/18 12:52> Vital signs: Vital Signs 04/15/18 15:00 04/15/18 16:00 04/15/18 17:14 Temperature 98 F Pulse Rate 60 112 H Respiratory Rate 18 Blood Pressure 127/75 Pulse Oximetry 100 99 04/15/18 20:00 04/16/18 00:00 04/16/18 04:00 Temperature 98.2 F Pulse Rate 107 H 82 84 Respiratory Rate 17 18 Blood Pressure 152/86 H 105/64 Pulse Oximetry 93 L 93 L 04/16/18 05:00 04/16/18 08:00 04/16/18 12:00 Temperature 98.0 F 97.6 F 97.3 F L Pulse Rate 90 105 H 81 Respiratory Rate 18 16 16 Blood Pressure 123/70 91/67 L 103/69 Pulse Oximetry 92 L 92 L 95 Intake & Output 04/15/18 04/16/18 04/16/18 18:59 06:59 18:59 Intake Total 1480 / 1480 1989 Output Total 560 / 560 400 / 400 Balance 920 / 920 1590 / 1590 Weight 58.9 kg Intake: IV 1000 / 1000 1989 Potassium Chlor 20 mEq/NACL 0. 1000 / 1000 990 / 990 45% Inj 1,000 ML @ 84 mls/hr IV .CONT .[id number] [facility] Rx#:[id number] NS Inj 1,000 ML @ As Directed 1000 / 1000 IV.SIG .Q0M [facility] Rx#:[id number] Oral 480 / 480 Output: Urine 560 / 560 400 / 400 Other: Date of Last Bowel Movement 04/15/18 04/15/18 04/16/18 # Bowel Movements 5 1 <Isra Day - Last Filed: 04/16/18 14:00> Results - Labs CBC & Chem 7: 04/14/18 06:56 04/16/18 03:32 Laboratory Results - last 24 hr 04/16/18 03:32 Sodium 140 Potassium 3.4 L Chloride 107 Carbon Dioxide 22.5 Anion Gap 11 BUN 9 Creatinine 0.31 L Estimated GFR Greater than 89 Random Glucose 90 Calcium 7.0 L* Prot Corrected Calcium 8.3 L Total Protein 4.7 L - Procedures 2D echo(04/07/18): - Estimated ejection fraction in the range of 65-70%. - The left atrial size is moderately dilated. - Mild aortic valve regurgitation. - There is mild tricuspid valve regurgitation. - Estimated RSVP is 36 mmHg - ICV is normal size with greater than 50% collapse with inspiration. <Isabel Krishnamurthy - Last Filed: 04/16/18 12:52> - Labs CBC & Chem 7: 04/14/18 06:56 04/16/18 03:32 Laboratory Results - last 24 hr 04/16/18 03:32 Sodium 140 Potassium 3.4 L Chloride 107 Carbon Dioxide 22.5 Anion Gap 11 BUN 9 Creatinine 0.31 L Estimated GFR Greater than 89 Random Glucose 90 Calcium 7.0 L* Prot Corrected Calcium 8.3 L Total Protein 4.7 L <Isra Day - Last Filed: 04/16/18 14:00> Assessment and Plan - Plan 73-year-old female who has been in the hospital since 04/05/2018 patient has significant history of mucous adenocarcinoma appendiceal origin. She has been noted per the history and patient to have chronic ileus as well as nausea vomiting and diarrhea. Gastroenterology was initially consulted on 04/07/2018 for uncontrolled nausea and vomiting diarrhea and now reconsulted on 04/16/2018 for some of the same symptoms.. Patient initially was offered EGD colonoscopy as well as symptom management but she refused any GI procedures during that time. She is now still suffering with nausea, decreased appetite but no vomiting for now. Patient states today was the first day that she felt like she had about 50 % of her breakfast. Oral cavity is very dry which gives her symptoms of dysphasia when swallowing pills. She is a known patient of Dr. Buchanan, last GI testing noted was around 2015. Patient currently notes at least 5 diarrheal stools a day brown , liquid but no obvious blood. C. difficile check on 2017 was negative. Currently patient's abdomen is distended, taut, minimal if any bowel sounds which could be related to acute on chronic ileus. CT scan is pending. Patient is receiving no chemotherapy at this time. Hemoglobin on 04/14/2018 was 11. Plan Diet continue food for now but discussed with patient may have to go back to clear liquids versus n.p.o. Discussed possibility of NG tube to decompress abdomen CT scan is pending Monitor labs as needed Monitor for any obvious bleeding and transfuse as needed Discussed with patient possibility for EGD colonoscopy but patient states she could not tolerate colonoscopy due to her weakness now she would do endoscopy if needed Further recommendations to follow Patient was seen per myself and Dr. Day, note was written on his behalf <Isabel Krishnamurthy - Last Filed: 04/16/18 12:52> - Plan Patient seen and examined Agree with above Continue current supportive care Monitor labs I discussed with the patient proposal for endoscopy at this point this is on hold we will await CT of the abdomen Currently she feels comfortable in bed she has a mildly distended abdomen somewhat tympanic but not tense and she is having flatus and bowel movements therefore we will continue to monitor at this point <Isra Day - Last Filed: 04/16/18 14:00>
--- NOTE | 2018-04-16 16:03 | CT ---
EXAM DATE: 04/16/2018 9:16 AM EDT AGE/SEX: 73 years / Female INDICATIONS: Nausea, vomiting. Abdominal pain and distention. CLINICAL DATA: This is the patient's initial encounter. Patient reports that signs and symptoms have been present for 1 day and indicates a pain score of 4/10. MEDICAL/SURGICAL HISTORY: Carcinoma, appendix. Hysterectomy. Appendectomy. RADIATION DOSE: 9.56 CTDI (mGy) COMPARISON: [facility] [place], CT ABDOMEN & PELVIS W/O CONTRAST, 04/06/2018. [facility] [place], CT ABDOMEN & PELVIS W/O CONT RAST, 11/22/2017. . TECHNIQUE: Multiple contiguous axial images were obtained through the abdomen. Images were obtained using multiple row detector helical technique. Using automated exposure control and adjustment of the mA and/or kV according to patient size, radiation dose was kept as low as reasonably achievable to o btain optimal diagnostic quality images. DICOM format image data is available electronically for rev iew and comparison. FINDINGS: Lower Lungs: Tiny pericardial effusion is noted. Coronary artery calcifications are noted. Tiny bilat eral pleural effusions are noted. Liver: There are multiple stable low-density lesions scattered throughout the liver parenchyma which are indeterminate on this unenhanced examination. There is no dilation of the biliary tree. Gallstone s are noted within the gallbladder lumen. Some ascites is noted. Spleen: Homogeneous density without enlargement. Pancreas: Unremarkable without mass or calcification. Kidneys: Normal in size and shape. No evidence of mass or hydronephrosis. Adrenal Glands: Unremarkable. Aorta: The aorta and proximal iliac vessels are grossly unremarkable without aneurysmal dilation. Bowel/Mesentery: Air-filled dilated loops of colon are noted suggesting probable diffuse ileus. Clin ical correlation is recommended. There is diffuse wall thickening involving several loops of ileum paredes ggesting diffuse enteritis. Clinical correlation is recommended. Abdominal Wall: Tiny midline ventral abdominal wall hernia containing only fat is noted. Retroperitoneum: No evidence of adenopathy in the retrocrural, para-aortic, or deep pelvic regions. Bladder: Contours are smooth. Reproductive Organs: No abnormal masses or calcifications seen. Inguinal: The inguinal region is unremarkable without evidence of adenopathy. Bony Structures: Degenerative changes and scoliosis of the thoracolumbar spine are noted. CONCLUSION: 1. Diffuse wall thickening involving several loops of ileum suggesting diffuse enteritis. Clinical c orrelation is recommended. 2. Air-filled dilated loops of colon suggesting probable diffuse ileus. Clinical correlation is gordon mmended. 3. Tiny pericardial effusion. 4. Coronary artery calcifications. 5. Tiny bilateral pleural effusions. 6. Cholelithiasis. 7. Multiple stable low-density lesions scattered throughout the liver parenchyma which are indetermi roxanne. 8. Tiny midline ventral abdominal wall hernia containing only fat. 9. Some ascites within the abdomen and pelvis. 10. Degenerative changes and scoliosis of the thoracolumbar spine. Electronically signed by: Dick Gordon MD 04/16/2018 4:02 PM EDT
[2018-04-16] MEDS: Levofloxacin 500 mg Premix Inj 500 MG/100 ML PIGGYBACK IV.SIG SCH (17:33)
[2018-04-16] MEDS: Fluconazole 100 MG Tablet PO SCH (22:02)
[2018-04-17] MEDS: dilTIAZem 60 MG Tablet PO SCH ×5 (00:56→23:32)
[2018-04-17 05:14] LABS: Baso % (Auto) 0.2 % (0.0-2.0); Eos % (Auto) 0.7 % (0.0-4.0); Hematocrit 27.3 % (35.0-46.0); Hemoglobin 9.3 gm/dL (11.6-15.3); Lymph # (Auto) 0.6 th/mm3 (1.0-4.8); Lymph % (Auto) 16.8 % (9.0-44.0); Mean Corpuscular Volume 99.8 fL (80.0-100.0); Mean Platelet Volume 6.8 fL (7.0-11.0); Mono # (Auto) 0.4 th/mm3 (0.0-0.9); Mono % (Auto) 13.3 % (0.0-8.0); Neut # (Auto) 2.3 th/mm3 (1.8-7.7); Platelet Count 150 th/mm3 (150-450); Red Blood Count 2.74 mil/mm3 (4.00-5.30); Red Cell Distribution Width 19.7 % (11.6-17.2); White Blood Count 3.3 th/mm3 (4.0-11.0)
[2018-04-17] MEDS: Pantoprazole Inj 40 MG Vial IV.PUSH SCH ×2 (05:26→18:41)
[2018-04-17 05:40] LABS: Anion Gap 9 meq/L (5-15); Blood Urea Nitrogen 6 mg/dL (7-18); Calcium 7.1 mg/dL (8.5-10.1); Carbon Dioxide 23.2 meq/L (21.0-32.0); Chloride 112 meq/L (98-107); Glomerular Filtration Rate Greater Than 89 mL/min (>89); Glucose,Random 71 mg/dL (74-106); Potassium 3.2 meq/L (3.5-5.1); Sodium 144 meq/L (136-145)
[2018-04-17 05:53] LABS: Total Protein 4.5 g/dL (6.4-8.2)
[2018-04-17] MEDS ORDERED: Potassium Chloride 10 MEQ ER Capsule PO ONE (07:15)
[2018-04-17] MEDS: Nystatin/Diphenhydramine/Lidocaine Mouthwash (Adult) 120 ML Botttle SWISH-SWAL SCH ×4 (07:59→20:25)
--- NOTE | 2018-04-17 08:35 | P.PNIM ---
Subjective Interval history: "I feel better" 1bm this AM tolerating liquids better. Physical Exam Vital signs: Vital Signs 04/16/18 12:00 04/16/18 16:00 04/16/18 20:00 Temperature 97.3 F L 97.6 F Pulse Rate 81 90 94 H Respiratory Rate 16 14 16 Blood Pressure 103/69 116/70 115/66 Pulse Oximetry 95 95 96 04/17/18 00:00 04/17/18 04:00 Temperature 97.8 F 98.4 F Pulse Rate 84 86 Respiratory Rate 20 20 Blood Pressure 111/63 115/65 Pulse Oximetry 93 L 92 L Intake & Output 04/16/18 04/17/18 04/17/18 18:59 06:59 18:59 Intake Total 580 / 580 1600 / 1600 Output Total 700 / 700 700 / 700 Balance -120 / -120 900 / 900 Weight 58.8 kg Intake: IV 1300 / 1300 NS + KCl 40 mEq Inj 1,000 ML @ 1000 / 1000 84 mls/hr IV.CONT .[id number] [facility] Rx#:[id number] Levaquin 500 mg Premix Inj 500 100 / 100 mg In 100 ml @ 100 mls/hr IV. SIG Q24H [facility] Rx#:[id number] Flagyl 500 MG Inj 100 ML @ 100 200 / 200 mls/hr IV.SIG Q6H [facility] Rx#: [id number] Oral 580 / 580 300 / 300 Output: Urine 700 / 700 700 / 700 Other: Date of Last Bowel Movement 04/16/18 04/16/18 # Bowel Movements 1 heart reg lung cta abd mild distention. minimal bs ext no edema Results - Labs CBC & Chem 7: 04/17/18 03:31 04/17/18 03:31 Laboratory Results - last 24 hr 04/16/18 04/17/18 04/17/18 20:05 03:31 03:31 WBC 3.3 L RBC 2.74 L Hgb 9.3 L Hct 27.3 L MCV 99.8 MCH 34.0 MCHC 34.0 RDW 19.7 H Plt Count 150 MPV 6.8 L Neut % (Auto) 69.0 Lymph % (Auto) 16.8 [place] % (Auto) 13.3 H Eos % (Auto) 0.7 Baso % (Auto) 0.2 Neut # (Auto) 2.3 Lymph # (Auto) 0.6 L [place] # (Auto) 0.4 Eos # (Auto) 0.0 Baso # (Auto) 0.0 WBC Differential . Differential Comment Auto diff final Sodium 144 Potassium 3.2 L Chloride 112 H Carbon Dioxide 23.2 Anion Gap 9 BUN 6 L Creatinine 0.30 L Estimated GFR Greater than 89 Random Glucose 71 L Calcium 7.1 L* Prot Corrected Calcium 8.5 Total Protein 4.5 L Stl C.difficile DNA Amp Negative St C. diff Tox Epid 027 Negative - Imaging Impressions Abdomen/Pelvis CT 04/16/18 00:00 CONCLUSION: 1. Diffuse wall thickening involving several loops of ileum suggesting diffuse enteritis. Clinical correlation is recommended. 2. Air-filled dilated loops of colon suggesting probable diffuse ileus. Clinical correlation is recommended. 3. Tiny pericardial effusion. 4. Coronary artery calcifications. 5. Tiny bilateral pleural effusions. 6. Cholelithiasis. 7. Multiple stable low-density lesions scattered throughout the liver parenchyma which are indeterminate. 8. Tiny midline ventral abdominal wall hernia containing only fat. 9. Some ascites within the abdomen and pelvis. 10. Degenerative changes and scoliosis of the thoracolumbar spine. - Procedures 2D echo(04/07/18): - Estimated ejection fraction in the range of 65-70%. - The left atrial size is moderately dilated. - Mild aortic valve regurgitation. - There is mild tricuspid valve regurgitation. - Estimated RSVP is 36 mmHg - ICV is normal size with greater than 50% collapse with inspiration. Assessment and Plan - Assessment (1) Atrial fibrillation with RVR Code(s): I48.91 - Unspecified atrial fibrillation Status: Acute Plan: A. 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 On December 13 pt was seen by Dr King and Polo. She had a right ovarian mass with torsion, significant intraperitoneal adhesions and intraperitoneal seeding. Pt underwent robotic-assisted laparoscopic hysterectomy, bilateral salpingo- oophorectomy (with resection of approximately 14 cm torsed right ovarian mass), extensive lysis of adhesions and right hemicolectomy performed. Pathology revealed features of mucinous adenocarcinoma. Pt went to [place] to see establish oncology care. - Over past 3months pt reports being treated with Capacitabine 2wk on/1wk off and this past Saturday was her fourth round of Oxaliplatin. She reports that she is scheduled for Hipec surgery on April 28 per her report. - Pt was developing diarrhea with this treatment and she has had n/v since with abdomen cramps and diarrhea. - Pt presented to the ED on 04/05 with dehydration and was found to have new A.fib/RVR. - Pt was started on IV Cardizem gtt and then weaned off of it. - Pt was started on Metoprolol 25mg po bid. Pt has remained in NSR. Ambulate to assess rate control - 2D echo (04/07/18): - Estimated ejection fraction in the range of 65-70%. - LA is moderately dilated. - Mild aortic valve regurgitation. - Mild tricuspid valve regurgitation. - Estimated RSVP is 36 mmHg - ICV is normal size with greater than 50% collapse with inspiration. - comgmt with GI & Oncology - Cont telemetry. - Stool studies were cdiff neg. - Stool for enteric pathogens negative, antigens for Giardia and cryptosporidium were negative - CT Abd/pelvis (04/06/18): - Probable chronic ileus and most likely gastroenteritis with fluid levels within loops of small bowel not particularly dilated. - Otherwise chronic changes not significantly changed. -CT a/p 04/17. colonic ileus. diffuse thickening small bowel ?enteritis. GI following. no endoscopy planned cont ivf cont kcl replacement pt requesting only prn phenergan. hold scheduled. cont ppi cont emperic levaquin/flagyl. so far stool studies negative cont liquids oob/PT - continue magic mouth wash & diflucan -- Metoprolol stopped d/t hypotension - continue cardizem short acting. unable to swallow larger pill - continue digoxin 0.25mg daily - (2) Mucinous adenocarcinoma of appendix Code(s): C18.1 - Malignant neoplasm of appendix Status: Acute
[2018-04-17] MEDS: Potassium Chloride 10 MEQ ER Capsule PO SCH ×2 (09:15→20:25)
[2018-04-17] MEDS: Digoxin 250 MCG Tablet PO SCH (09:15)
--- NOTE | 2018-04-17 09:16 | P.PNGI ---
Subjective Interval history: Pt is sitting up in chair eating breakfast, feeling much better today, no nausea or vomiting, no abd pain. Had one "muddy" BM early am. <Marcello Beck - Last Filed: 04/17/18 09:07> Physical Exam Vital signs: Vital Signs 04/16/18 12:00 04/16/18 16:00 04/16/18 20:00 Temperature 97.3 F L 97.6 F Pulse Rate 81 90 94 H Respiratory Rate 16 14 16 Blood Pressure 103/69 116/70 115/66 Pulse Oximetry 95 95 96 04/17/18 00:00 04/17/18 04:00 Temperature 97.8 F 98.4 F Pulse Rate 84 86 Respiratory Rate 20 20 Blood Pressure 111/63 115/65 Pulse Oximetry 93 L 92 L Intake & Output 04/16/18 04/17/18 04/17/18 18:59 06:59 18:59 Intake Total 580 / 580 1600 / 1600 Output Total 700 / 700 700 / 700 Balance -120 / -120 900 / 900 Weight 58.8 kg Intake: IV 1300 / 1300 NS + KCl 40 mEq Inj 1,000 ML @ 1000 / 1000 84 mls/hr IV.CONT .[id number] [facility] Rx#:[id number] Levaquin 500 mg Premix Inj 500 100 / 100 mg In 100 ml @ 100 mls/hr IV. SIG Q24H [facility] Rx#:[id number] Flagyl 500 MG Inj 100 ML @ 100 200 / 200 mls/hr IV.SIG Q6H [facility] Rx#: [id number] Oral 580 / 580 300 / 300 Output: Urine 700 / 700 700 / 700 Other: Date of Last Bowel Movement 04/16/18 04/16/18 # Bowel Movements 1 Narrative: GENERAL: This is a well-nourished, well-developed patient, in no apparent distress. CARDIOVASCULAR: irregular RESPIRATORY: Clear to auscultation. Breath sounds equal bilaterally. No wheezes , rales, or rhonchi. GASTROINTESTINAL: Abdomen soft, non-tender, nondistended. Normal active bowel sounds MUSCULOSKELETAL: Extremities without clubbing, cyanosis, or edema. NEURO: Alert & Oriented x4 to person, place, time, situation. <Marcello Beck - Last Filed: 04/17/18 09:07> Vital signs: Vital Signs 04/16/18 20:00 10/04/18 00:00 04/17/18 04:00 Temperature 97.8 F 98.4 F Pulse Rate 94 H 84 86 Respiratory Rate 16 20 20 Blood Pressure 115/66 111/63 115/65 Pulse Oximetry 96 93 L 92 L 04/17/18 08:00 04/17/18 12:00 Temperature 97.8 F 97.5 F L Pulse Rate 85 99 H Respiratory Rate 16 14 Blood Pressure 111/65 115/79 Pulse Oximetry 94 L 95 Intake & Output 04/16/18 04/17/18 04/17/18 18:59 06:59 18:59 Intake Total 580 / 580 1600 / 1600 100 / 100 Output Total 700 / 700 700 / 700 Balance -120 / -120 900 / 900 100 / 100 Weight 58.8 kg Intake: IV 1300 / 1300 100 / 100 NS + KCl 40 mEq Inj 1,000 ML @ 1000 / 1000 84 mls/hr IV.CONT .[id number] [facility] Rx#:[id number] Levaquin 500 mg Premix Inj 500 100 / 100 mg In 100 ml @ 100 mls/hr IV. SIG Q24H [facility] Rx#:[id number] Flagyl 500 MG Inj 100 ML @ 100 200 / 200 100 / 100 mls/hr IV.SIG Q6H [facility] Rx#: [id number] Oral 580 / 580 300 / 300 Output: Urine 700 / 700 700 / 700 Other: Date of Last Bowel Movement 04/16/18 04/16/18 04/16/18 # Bowel Movements 1 <Isra Day E - Last Filed: 04/17/18 16:45> Results - Labs CBC & Chem 7: 04/17/18 03:31 04/17/18 03:31 Laboratory Results - last 24 hr 04/16/18 04/17/18 04/17/18 20:05 03:31 03:31 WBC 3.3 L RBC 2.74 L Hgb 9.3 L Hct 27.3 L MCV 99.8 MCH 34.0 MCHC 34.0 RDW 19.7 H Plt Count 150 MPV 6.8 L Neut % (Auto) 69.0 Lymph % (Auto) 16.8 [place] % (Auto) 13.3 H Eos % (Auto) 0.7 Baso % (Auto) 0.2 Neut # (Auto) 2.3 Lymph # (Auto) 0.6 L [place] # (Auto) 0.4 Eos # (Auto) 0.0 Baso # (Auto) 0.0 WBC Differential . Differential Comment Auto diff final Sodium 144 Potassium 3.2 L Chloride 112 H Carbon Dioxide 23.2 Anion Gap 9 BUN 6 L Creatinine 0.30 L Estimated GFR Greater than 89 Random Glucose 71 L Calcium 7.1 L* Prot Corrected Calcium 8.5 Total Protein 4.5 L Stl C.difficile DNA Amp Negative St C. diff Tox Epid 027 Negative - Imaging Impressions Abdomen/Pelvis CT 04/16/18 00:00 CONCLUSION: 1. Diffuse wall thickening involving several loops of ileum suggesting diffuse enteritis. Clinical correlation is recommended. 2. Air-filled dilated loops of colon suggesting probable diffuse ileus. Clinical correlation is recommended. 3. Tiny pericardial effusion. 4. Coronary artery calcifications. 5. Tiny bilateral pleural effusions. 6. Cholelithiasis. 7. Multiple stable low-density lesions scattered throughout the liver parenchyma which are indeterminate. 8. Tiny midline ventral abdominal wall hernia containing only fat. 9. Some ascites within the abdomen and pelvis. 10. Degenerative changes and scoliosis of the thoracolumbar spine. - Procedures 2D echo(04/07/18): - Estimated ejection fraction in the range of 65-70%. - The left atrial size is moderately dilated. - Mild aortic valve regurgitation. - There is mild tricuspid valve regurgitation. - Estimated RSVP is 36 mmHg - ICV is normal size with greater than 50% collapse with inspiration. <Marcello Beck - Last Filed: 04/17/18 09:07> - Labs CBC & Chem 7: 04/17/18 03:31 04/17/18 03:31 Laboratory Results - last 24 hr 04/16/18 04/17/18 04/17/18 20:05 03:31 03:31 WBC 3.3 L RBC 2.74 L Hgb 9.3 L Hct 27.3 L MCV 99.8 MCH 34.0 MCHC 34.0 RDW 19.7 H Plt Count 150 MPV 6.8 L Neut % (Auto) 69.0 Lymph % (Auto) 16.8 [place] % (Auto) 13.3 H Eos % (Auto) 0.7 Baso % (Auto) 0.2 Neut # (Auto) 2.3 Lymph # (Auto) 0.6 L [place] # (Auto) 0.4 Eos # (Auto) 0.0 Baso # (Auto) 0.0 WBC Differential . Differential Comment Auto diff final Sodium 144 Potassium 3.2 L Chloride 112 H Carbon Dioxide 23.2 Anion Gap 9 BUN 6 L Creatinine 0.30 L Estimated GFR Greater than 89 Random Glucose 71 L Calcium 7.1 L* Prot Corrected Calcium 8.5 Total Protein 4.5 L Stl C.difficile DNA Amp Negative St C. diff Tox Epid 027 Negative <Isra Day E - Last Filed: 04/17/18 16:45> Assessment and Plan - Plan - Enteritis on CT- Started on empiric tx of Levaquin and Flagyl Stools negative, but (+) for wbc, pt doing better today, tolerating regular diet CT a/p 04/17. colonic ileus. diffuse thickening small bowel ?enteritis. Declining EGD/colonoscopy - Ileus- Pt passing stools and flatus, no abd pain, no nausea or vomiting. - mucinous adenocarcinoma of appendiceal origin. On December 13 pt was seen by Dr King and Polo. She had a right ovarian mass with torsion, significant intraperitoneal adhesions and intraperitoneal seeding. Pt underwent robotic-assisted laparoscopic hysterectomy, bilateral salpingo-oophorectomy (with resection of approximately 14 cm torsed right ovarian mass), extensive lysis of adhesions and right hemicolectomy performed. Pathology revealed features of mucinous adenocarcinoma. Plan: - MEENA - cont. abx - Supportive care - Declining EGD/colonoscopy - Oncology on the case - Pt seen and examined by Dr. Day and myself and this note is written on his behalf. <Marcello Beck - Last Filed: 04/17/18 09:07> - Plan Patient seen and examined Agree with above Continue with current supportive care Monitor labs Patient passed stools and flatus and feeling better Ileus appears to be resolving Doubt any need for antibiotics at this point for the enteritis or changes noted on CT of the ileum Patient follow-up with GI post discharge Not much to add at this point from a GI perspective we will sign off <Isra Day - Last Filed: 04/17/18 16:45>
[2018-04-17] MEDS: Sodium Chloride 0.9% 2 ML Flush BID IV.FLUSH SCH ×2 (11:49→20:25)
[2018-04-17] MEDS: Levofloxacin 500 mg Premix Inj 500 MG/100 ML PIGGYBACK IV.SIG SCH (18:42)
[2018-04-17] MEDS: Fluconazole 100 MG Tablet PO SCH (20:25)
[2018-04-18] MEDS: Pantoprazole Inj 40 MG Vial IV.PUSH SCH (05:24)
[2018-04-18] MEDS: dilTIAZem 60 MG Tablet PO SCH (05:24)
[2018-04-18 08:02] LABS: Anion Gap 9 meq/L (5-15); Blood Urea Nitrogen 3 mg/dL (7-18); Calcium 7.2 mg/dL (8.5-10.1); Carbon Dioxide 21.7 meq/L (21.0-32.0); Chloride 115 meq/L (98-107); Glomerular Filtration Rate Greater Than 89 mL/min (>89); Glucose,Random 100 mg/dL (74-106); Potassium 3.3 meq/L (3.5-5.1); Sodium 146 meq/L (136-145)
--- NOTE | 2018-04-18 08:11 | P.DCO ---
- Physical Therapy Order: Evaluate and treat - Home Health Nursing Order: Medical education, Signs/symptoms of disease process, Medication education-adverse effect, Nursing assessment with vital signs - Case Management Consult Yes - Certification I have seen patient Mar Moya on 04/18/18. My clinical findings support the need for the requested home health care services because: Need for psychosocial assistance I certify that my clinical findings support that this patient is homebound because: Need for psychosocial assistance
[2018-04-18] MEDS: Nystatin/Diphenhydramine/Lidocaine Mouthwash (Adult) 120 ML Botttle SWISH-SWAL SCH (08:54)
[2018-04-18] MEDS: Digoxin 250 MCG Tablet PO SCH (08:54)
[2018-04-18] MEDS ORDERED: dilTIAZem CD 120 MG Capsule PO SCH (09:00)
[2018-04-18] MEDS: Sodium Chloride 0.9% 2 ML Flush BID IV.FLUSH SCH (09:16)
--- NOTE | 2018-04-18 09:16 | P.PNIM ---
Subjective Interval history: feels better tolerating diet bm a little more formed eager for dc today as son in town. nursing reported pt passed diltiazem pill in stool Physical Exam Vital signs: Vital Signs 04/17/18 12:00 04/17/18 16:00 04/17/18 20:00 Temperature 97.5 F L 97.8 F 97.7 F Pulse Rate 99 H 83 96 H Respiratory Rate 14 16 16 Blood Pressure 115/79 98/62 L 143/82 H Pulse Oximetry 95 97 98 04/18/18 00:00 04/18/18 04:00 04/18/18 08:00 Temperature 97.9 F 97.6 F 97.7 F Pulse Rate 81 92 H 79 Respiratory Rate 16 18 16 Blood Pressure 114/80 126/79 135/58 L Pulse Oximetry 95 95 98 Intake & Output 04/17/18 04/18/18 04/18/18 18:59 06:59 18:59 Intake Total 1920 / 1920 540 / 540 Output Total 800 / 800 600 / 600 Balance 1120 / 1120 -60 / -60 Weight 58.6 kg Intake: IV 1200 / 1200 300 / 300 NS + KCl 40 mEq Inj 1,000 ML @ 1000 / 1000 84 mls/hr IV.CONT .[id number] [facility] Rx#:[id number] Levaquin 500 mg Premix Inj 500 100 / 100 mg In 100 ml @ 100 mls/hr IV. SIG Q24H [facility] Rx#:[id number] Flagyl 500 MG Inj 100 ML @ 100 200 / 200 200 / 200 mls/hr IV.SIG Q6H [facility] Rx#: [id number] Oral 720 / 720 240 / 240 Output: Urine 800 / 800 600 / 600 Other: Date of Last Bowel Movement 04/16/18 04/17/18 # Bowel Movements 2 heart reg lung cta abd s/mild distention/.bs ext no edema Results - Labs CBC & Chem 7: 04/17/18 03:31 04/18/18 06:00 Laboratory Results - last 24 hr 04/18/18 06:00 Sodium 146 H Potassium 3.3 L Chloride 115 H Carbon Dioxide 21.7 Anion Gap 9 BUN 3 L Creatinine 0.37 L Estimated GFR Greater than 89 Random Glucose 100 Calcium 7.2 L* Prot Corrected Calcium 8.3 L Total Protein 5.0 L - Procedures 2D echo(04/07/18): - Estimated ejection fraction in the range of 65-70%. - The left atrial size is moderately dilated. - Mild aortic valve regurgitation. - There is mild tricuspid valve regurgitation. - Estimated RSVP is 36 mmHg - ICV is normal size with greater than 50% collapse with inspiration. Assessment and Plan - Assessment (1) Atrial fibrillation with RVR Code(s): I48.91 - Unspecified atrial fibrillation Status: Acute Plan: A. 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 On December 13 pt was seen by Dr King and Polo. She had a right ovarian mass with torsion, significant intraperitoneal adhesions and intraperitoneal seeding. Pt underwent robotic-assisted laparoscopic hysterectomy, bilateral salpingo- oophorectomy (with resection of approximately 14 cm torsed right ovarian mass), extensive lysis of adhesions and right hemicolectomy performed. Pathology revealed features of mucinous adenocarcinoma. Pt went to [place] to see establish oncology care. - Over past 3months pt reports being treated with Capacitabine 2wk on/1wk off and this past Saturday was her fourth round of Oxaliplatin. She reports that she is scheduled for Hipec surgery on April 28 per her report. - Pt was developing diarrhea with this treatment and she has had n/v since with abdomen cramps and diarrhea. - Pt presented to the ED on 04/05 with dehydration and was found to have new A.fib/RVR. - Pt was started on IV Cardizem gtt and then weaned off of it. - Pt was started on Metoprolol 25mg po bid. Pt has remained in NSR. Ambulate to assess rate control - 2D echo (04/07/18): - Estimated ejection fraction in the range of 65-70%. - LA is moderately dilated. - Mild aortic valve regurgitation. - Mild tricuspid valve regurgitation. - Estimated RSVP is 36 mmHg - ICV is normal size with greater than 50% collapse with inspiration. - comgmt with GI & Oncology - Cont telemetry. - Stool studies were cdiff neg. - Stool for enteric pathogens negative, antigens for Giardia and cryptosporidium were negative - CT Abd/pelvis (04/06/18): - Probable chronic ileus and most likely gastroenteritis with fluid levels within loops of small bowel not particularly dilated. - Otherwise chronic changes not significantly changed. -CT a/p 04/17. colonic ileus. diffuse thickening small bowel ?enteritis. GI following. no endoscopy planned cont ivf cont kcl replacement pt requesting only prn phenergan. hold scheduled. cont ppi cont emperic levaquin/flagyl. so far stool studies negative cont liquids oob/PT - continue magic mouth wash & diflucan pt feeling better. I advised monitor today and dc tomorrow. she is eager for dc later today ambulate and reassess later today. -- Metoprolol stopped d/t hypotension -convert dilt to cardizem cd. nursing reports pt not absorbing diltiazem as pill was in stool. - continue digoxin 0.25mg daily - (2) Mucinous adenocarcinoma of appendix Code(s): C18.1 - Malignant neoplasm of appendix Status: Acute
[2018-04-18] MEDS: Potassium Chloride 10 MEQ ER Capsule PO SCH ×2 (10:17→14:48)
[2018-04-18 12:47] VITALS: BP 144/86; PULSE 84; RESP 20; TEMP 98.7; O2SAT 96
--- NOTE | 2018-04-25 10:28 | P.DS ---
<Priscilla Quinones W - Last Filed: 04/25/18 10:27> Date of admission: 04/05/18 20:53 Primary care physician: Suraj Berry MD Attending physician on discharge: Saul Meier Brief History from admission: Pt is 73 yo female with diagnosis of mucinous adenocarcinoma appendiceal origin. On December 13 pt was seen by Dr King and Polo. She had Right ovarian mass with torsion, significant intraperitoneal adhesions and intraperitoneal seeding.Robotic- assisted laparoscopic hysterectomy, bilateral salpingo-oophorectomy (with resection of approximately 14 cm torsed right ovarian mass), extensive lysis of adhesions and right hemicolectomy performed. Pathology revealed features of mucinous adenoca. Also a hemorrhagic right ovarian cyst with features of torsion. Pt went to [facility] to see establish oncology care. Over past 3months pt reports being treated with capacitabine 2wk on/1wk off and developing diarrhea with this treatment. Also she says this past Saturday was her fourth round of Oxyplatin. She has had n/v since with abdomen cramps and diarrhea. She has diarrhea since above chemo. She is scheduled for Hipec surgery on April 28 per her report. Pt presented to ED last night dehydrated and found to have new afib/rvr. given iv cardizem and this AM is on 5mg/hr and is in sinus rhythm at 70s bmp. PMH hyperlipidemia mucinous adenocarcinoma appendiceal origin On December 13 Robotic-assisted laparoscopic hysterectomy,BSO, (with resection of approximately 14 cm torsed right ovarian mass), extensive lysis of adhesions and right hemicolectomy performed. Pathology revealed features of mucinous adenoca. Also a hemorrhagic right ovarian cyst with features of torsion. FH: Father. pheo. [place] Mother lymphoma sister breast ca SH. rare etoh. no tob DS: Diagnosis - Discharge Diagnosis (1) Atrial fibrillation with RVR Status: Acute DS: Medications - Discharge Medications Prescriptions: digoxin 250 mcg PO DAILY 30 Days #30 tab pantoprazole [Protonix] 40 mg PO BID 60 Days each promethazine 25 mg PO TIDAC PRN #30 tab PRN Reason: n/v DS: Summary Hospital Course: A. 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 On December 13 pt was seen by Dr King and Polo. She had a right ovarian mass with torsion, significant intraperitoneal adhesions and intraperitoneal seeding. Pt underwent robotic-assisted laparoscopic hysterectomy, bilateral salpingo- oophorectomy (with resection of approximately 14 cm torsed right ovarian mass), extensive lysis of adhesions and right hemicolectomy performed. Pathology revealed features of mucinous adenocarcinoma. Pt went to [facility] to see establish oncology care. - Over past 3months pt reports being treated with Capacitabine 2wk on/1wk off and this past Saturday was her fourth round of Oxaliplatin. She reports that she is scheduled for Hipec surgery on April 28 per her report. - Pt was developing diarrhea with this treatment and she has had n/v since with abdomen cramps and diarrhea. - Pt presented to the ED on 04/05 with dehydration and was found to have new A.fib/RVR. - Pt was started on IV Cardizem gtt and then weaned off of it. - Pt was started on Metoprolol 25mg po bid. Pt has remained in NSR. Ambulate to assess rate control - 2D echo (04/07/18): - Estimated ejection fraction in the range of 65-70%. - LA is moderately dilated. - Mild aortic valve regurgitation. - Mild tricuspid valve regurgitation. - Estimated RSVP is 36 mmHg - ICV is normal size with greater than 50% collapse with inspiration. - comgmt with GI & Oncology - Cont telemetry. - Stool studies were cdiff neg. - Stool for enteric pathogens negative, antigens for Giardia and cryptosporidium were negative - CT Abd/pelvis (04/06/18): - Probable chronic ileus and most likely gastroenteritis with fluid levels within loops of small bowel not particularly dilated. - Otherwise chronic changes not significantly changed. -CT a/p 04/17. colonic ileus. diffuse thickening small bowel ?enteritis. GI following. no endoscopy planned cont ivf cont kcl replacement pt requesting only prn phenergan. hold scheduled. cont ppi cont emperic levaquin/flagyl. so far stool studies negative cont liquids oob/PT - continue magic mouth wash & diflucan pt feeling better. I advised monitor today and dc tomorrow. she is eager for dc later today ambulate and reassess later today. -- Metoprolol stopped d/t hypotension -convert dilt to cardizem cd. nursing reports pt not absorbing diltiazem as pill was in stool. - continue digoxin 0.25mg daily - Time Spent with Patient Total time spent providing and/or coordinating discharge services: Greater than 30 minutes - Quality: VTE Deep Vein Thrombosis/Pulmonary Embolism Present on Admission: No Exam Narrative: heart reg lung cta abd s/mild distention/.bs ext no edema Results Procedures completed during hospitalization: 2D echo(04/07/18): - Estimated ejection fraction in the range of 65-70%. - The left atrial size is moderately dilated. - Mild aortic valve regurgitation. - There is mild tricuspid valve regurgitation. - Estimated RSVP is 36 mmHg - ICV is normal size with greater than 50% collapse with inspiration. - Impressions ITS Impressions Chest X-Ray 04/05/18 19:24 CONCLUSION: No acute cardiopulmonary disease. Abdomen/Pelvis CT 04/16/18 00:00 CONCLUSION: 1. Diffuse wall thickening involving several loops of ileum suggesting diffuse enteritis. Clinical correlation is recommended. 2. Air-filled dilated loops of colon suggesting probable diffuse ileus. Clinical correlation is recommended. 3. Tiny pericardial effusion. 4. Coronary artery calcifications. 5. Tiny bilateral pleural effusions. 6. Cholelithiasis. 7. Multiple stable low-density lesions scattered throughout the liver parenchyma which are indeterminate. 8. Tiny midline ventral abdominal wall hernia containing only fat. 9. Some ascites within the abdomen and pelvis. 10. Degenerative changes and scoliosis of the thoracolumbar spine. <Saul Meier - Last Filed: 04/25/18 10:35> Date of admission: 04/05/18 20:53 Primary care physician: Suraj Berry MD DS: Diagnosis - Discharge Diagnosis (1) Atrial fibrillation with RVR Status: Acute (2) Mucinous adenocarcinoma of appendix Status: Acute DS: Summary - Time Spent with Patient Total time spent providing and/or coordinating discharge services: Results - Impressions ITS Impressions Chest X-Ray 04/05/18 19:24 CONCLUSION: No acute cardiopulmonary disease. Abdomen/Pelvis CT 04/16/18 00:00 CONCLUSION: 1. Diffuse wall thickening involving several loops of ileum suggesting diffuse enteritis. Clinical correlation is recommended. 2. Air-filled dilated loops of colon suggesting probable diffuse ileus. Clinical correlation is recommended. 3. Tiny pericardial effusion. 4. Coronary artery calcifications. 5. Tiny bilateral pleural effusions. 6. Cholelithiasis. 7. Multiple stable low-density lesions scattered throughout the liver parenchyma which are indeterminate. 8. Tiny midline ventral abdominal wall hernia containing only fat. 9. Some ascites within the abdomen and pelvis. 10. Degenerative changes and scoliosis of the thoracolumbar spine. Discharge Plan - Discharge Order Discharge Orders: Discharge Order (Routine); Ordered 04/18/18 Ordered By: Saul Meier - Discharge Details Anticipated Discharge Date: 04/18/18 - Physicians Team Primary Care Provider: Suraj Berry Attending Provider: Saul Meier Other Providers: Joe Mello MD ; Ngozi Choi ; Darron Ruiz MD ; Isra Day MD ; [facility]
== END 2018-04-18 18:55 | disposition home health service (06) ==
LOC: NEPE 17:53 → NEDA 20:53 → HCIN 21:51
PROVIDERS: ADMIT Hospitalist; ATTEND Hospitalist

== ENCOUNTER 2018-04-21 16:25 | Observation (INO) ==
[2018-04-21] MEDS ORDERED: Sod Chloride 0.9% Inj 1,000 ML IV.SIG SCH (17:45)
[2018-04-21 18:10] LABS: Bacteria,Urine Occasional /hpf; Bilirubin,Urine Negative (Negative); Clarity,Urine Cloudy (Clear); Color,Urine Yellow (Yellw/Straw); Glucose,Urine (UA) Negative (Negative); Hyaline Casts,Urine 1 /lpf (0-3); Leukocyte Esterase,Urine Trace (Negative); Mucus,Urine Few /lpf (Occasional); Nitrite,Urine Negative (Negative); Specific Gravity,Urine 1.015 (1.002-1.035); Squamous Epithelial Cell,Urine 28 /hpf (0-5)
[2018-04-21 18:13] LABS: Baso # (Auto) 0.1 th/mm3 (0.0-0.2); Eos % (Auto) 0.3 % (0.0-4.0); Hematocrit 33.3 % (35.0-46.0); Hemoglobin 11.4 gm/dL (11.6-15.3); Lymph # (Auto) 1.4 th/mm3 (1.0-4.8); Lymph % (Auto) 25.9 % (9.0-44.0); Mean Corpuscular HGB Conc 34.3 % (32.0-36.0); Mean Corpuscular Hemoglobin 34.1 pg (27.0-34.0); Mean Corpuscular Volume 99.5 fL (80.0-100.0); Mean Platelet Volume 6.8 fL (7.0-11.0); Mono # (Auto) 0.7 th/mm3 (0.0-0.9); Mono % (Auto) 12.1 % (0.0-8.0); Neut # (Auto) 3.4 th/mm3 (1.8-7.7); Neut % (Auto) 60.7 % (16.0-70.0); Platelet Count 267 th/mm3 (150-450); Red Blood Count 3.35 mil/mm3 (4.00-5.30); Red Cell Distribution Width 20.5 % (11.6-17.2); White Blood Count 5.5 th/mm3 (4.0-11.0)
[2018-04-21 18:33] LABS: Albumin 2.3 g/dL (3.4-5.0); Anion Gap 10 meq/L (5-15); Aspartate Aminotransferase 16 U/L (15-37); Blood Urea Nitrogen 9 mg/dL (7-18); Calcium 7.9 mg/dL (8.5-10.1); Carbon Dioxide 24.1 meq/L (21.0-32.0); Chloride 103 meq/L (98-107); Glomerular Filtration Rate Greater Than 89 mL/min (>89); Glucose,Random 90 mg/dL (74-106); Magnesium 1.4 mg/dL (1.5-2.5); Potassium 3.7 meq/L (3.5-5.1); Sodium 137 meq/L (136-145)
--- NOTE | 2018-04-21 18:39 | ED ---
HPI General Chief complaint: Recheck/Abnormal Lab/Rx Stated complaint: Phy sent/Dizziness/Low BP Time Seen by Provider: 04/21/18 17:10 History of Present Illness HPI narrative: Is a 73-year-old female with a history of mucinous adenocarcinoma of the appendix, atrial fibrillation, who presents today at the request of her doctor for evaluation of possible dehydration, hypokalemia, hypomagnesemia. The patient presents with a low systolic blood pressure. Her blood pressures at home of been in the low 90s, high 80s over the last 24 hours. She denies any chest pain, chest pressure. She does report lightheadedness and dizziness. The patient also gives history that she has had continuous diarrhea since being started on her chemotherapy. She was last on her IV chemotherapy 2 weeks ago. She reports continued diarrhea. She reports that she is been worked up for C. difficile and all types of infectious diarrhea and not have been found at this point. There are no other complaints at the time of examination. Related Data Home Medications Medication Instructions Recorded Confirmed atorvastatin 10 mg PO DAILY 04/05/18 04/21/18 capecitabine See Label Instructions .ROUTE 04/05/18 04/21/18 .COMPLEX oxaliplatin See Label Instructions .ROUTE 04/05/18 04/21/18 .COMPLEX Previous Rx's Medication Instructions Recorded digoxin 250 mcg PO DAILY 30 Days #30 tab 04/18/18 diltiazem HCl 120 mg PO BID #60 cap 04/18/18 levofloxacin [Levaquin] 500 mg PO DAILY #7 tab 04/18/18 metronidazole [Flagyl] 500 mg PO TID 7 Days #21 tab 04/18/18 pantoprazole [Protonix] 40 mg PO BID 60 Days each 04/18/18 potassium chloride 10 meq PO DAILY 7 Days #52.5 ml 04/18/18 promethazine 25 mg PO TIDAC PRN #30 tab 04/18/18 Allergies Allergy/AdvReac Type Severity Reaction Status Date / Time No Known Allergies Allergy Unknown Uncoded 12/13/17 07:07 Review of Systems ROS: all other systems reviewed are negative Constitutional Denies chills and Denies fever(s) Eyes Reports system reviewed and no additional complaints, except as docu ENT Reports system reviewed and no additional complaints, except as docu Cardiovascular Denies chest pain, Denies syncope and Denies palpitations Respiratory Denies chest congestion, Denies cough and Reports dyspnea (On exertion.) Gastrointestinal Denies abdominal pain, Reports diarrhea (Chronic), Denies nausea and Denies vomiting Genitourinary Denies dysuria and Reports other (No decreased urine output.) Musculoskeletal Reports system reviewed and no additional complaints, except as docu Neurologic Reports dizziness, Denies headache(s) and Reports weakness (Generalized) PMFSH Social History Social History Substance History: No History of Abuse Second Hand Smoke Exposure: No Smoking Status: Never smoker How Often Do You Have a Drink Containing Alcohol: Never Recent Travel in [place] within the Last 8 Weeks: No Recent Out of Country Travel within the Last 8 Weeks: No Immunization History Tetanus Immunization: <5 Years Exam Narrative Exam Narrative: GENERAL: Well-developed well-nourished female in no acute respiratory distress. SKIN: Focused skin assessment warm/dry. HEAD: Atraumatic. Normocephalic. EYES: Pupils equal and round. No scleral icterus. No injection or drainage. ENT: No nasal bleeding or discharge. Mucous membranes pink and dry. NECK: Trachea midline. No JVD. Supple. CARDIOVASCULAR: Regular rate and rhythm. No murmur appreciated. RESPIRATORY: No accessory muscle use. Clear to auscultation. Breath sounds equal bilaterally. GASTROINTESTINAL: Abdomen soft, non-tender, nondistended. Hepatic and splenic margins not palpable. MUSCULOSKELETAL: No obvious deformities. No clubbing. No cyanosis. No edema. NEUROLOGICAL: Awake and alert. No obvious cranial nerve deficits. Motor grossly within normal limits. Normal speech. Course Initial Documented Vital Signs Temperature 97.7 F 04/21/18 16:38 Pulse Rate 84 04/21/18 16:38 Respiratory Rate 16 04/21/18 16:38 Blood Pressure 104/64 04/21/18 16:38 Pulse Oximetry 97 04/21/18 16:38 Last Documented Vital Signs Temperature 97.7 F 04/21/18 16:38 Pulse Rate 83 04/21/18 19:13 Respiratory Rate 18 04/21/18 19:13 Blood Pressure 129/75 04/21/18 19:13 Pulse Oximetry 98 04/21/18 19:13 Medical Decision Making MDM Narrative Medical decision making narrative: 73-year-old female with a history of mucinoid appendiceal cancer, presents today with complaints of dizziness, lightheadedness. Patient is noted to have volume depletion on examination. Patient was noted to be hypomagnesemic. Patient was placed on digoxin and Cardizem. She feels as though this may be contributing to her patient was discussed with Dr. Liam Griffith, physician covering for Dr. Philippe who covers during the day. He requested we admit the patient to Dr. Philippe. Patient will be continued on IV fluids. She has been given 1 g of magnesium by IV bolus. Medical Screen Exam Complete: Yes Emergency Medical Condition: Yes Differential Diagnosis Differential Diagnosis: Metabolic derangement versus anemia versus acute kidney injury Lab Data Result diagrams: 04/21/18 17:55 04/21/18 17:55 Lab Results 04/21/18 04/21/18 04/21/18 Range/Units 17:55 17:55 17:55 WBC 5.5 (4.0-11.0) th/mm3 RBC 3.35 L (4.00-5.30) mil/mm3 Hgb 11.4 L (11.6-15.3) gm/dL Hct 33.3 L (35.0-46.0) % MCV 99.5 (80.0-100.0) fL MCH 34.1 H (27.0-34.0) pg MCHC 34.3 (32.0-36.0) % RDW 20.5 H (11.6-17.2) % Plt Count 267 D (150-450) th/mm3 MPV 6.8 L (7.0-11.0) fL Neut % (Auto) 60.7 (16.0-70.0) % Lymph % (Auto) 25.9 (9.0-44.0) % [place] % (Auto) 12.1 H (0.0-8.0) % Eos % (Auto) 0.3 (0.0-4.0) % Baso % (Auto) 1.0 (0.0-2.0) % Neut # (Auto) 3.4 (1.8-7.7) th/mm3 Lymph # (Auto) 1.4 (1.0-4.8) th/mm3 [place] # (Auto) 0.7 (0.0-0.9) th/mm3 Eos # (Auto) 0.0 (0.0-0.4) th/mm3 Baso # (Auto) 0.1 (0.0-0.2) th/mm3 WBC Differential . Differential Comment Auto diff final Sodium 137 (136-145) meq/L Potassium 3.7 (3.5-5.1) meq/L Chloride 103 (98-107) meq/L Carbon Dioxide 24.1 (21.0-32.0) meq/L Anion Gap 10 (5-15) meq/L BUN 9 (7-18) mg/dL Creatinine 0.47 L (0.50-1.00) mg/dL Estimated GFR Greater than 89 (>89) mL/min Random Glucose 90 (74-106) mg/dL Calcium 7.9 L (8.5-10.1) mg/dL Magnesium 1.4 L (1.5-2.5) mg/dL Total Bilirubin 0.2 (0.2-1.0) mg/dL AST 16 (15-37) U/L ALT 17 (10-53) U/L Alkaline Phosphatase 74 (45-117) U/L Total Protein 6.2 L D (6.4-8.2) g/dL Albumin 2.3 L (3.4-5.0) g/dL Urine Color Yellow (Yellw/Straw) Urine Clarity Cloudy H (Clear) Urine pH 6.0 (5.0-8.5) Ur Specific [place] 1.015 (1.002-1.035) Urine Protein Negative (Neg-Trace) mg/dL Urine Glucose (UA) Negative (Negative) mg/dL Urine Ketones Negative (Negative) mg/dL Urine Occult Blood Negative (Negative) Urine Nitrate Negative (Negative) Urine Bilirubin Negative (Negative) Urine Urobilinogen Less than 2 (Less than 2) mg/dL Ur Leukocyte Esterase Trace H (Negative) Urine RBC 2 (0-3) /hpf Urine WBC 3 (0-5) /hpf Ur Squamous Epith Cells 28 (0-5) /hpf Urine Bacteria Occasional H (None) /hpf Hyaline Casts 1 (0-3) /lpf Urine Mucus Few H (Occasional) /lpf Micro UA Comment Culture not ind Ur Microscopic Review Not Reportable Urine Culture Comments Culture not ind Digoxin 0.7 L (0.8-2.0) ng/mL Discharge Plan Discharge Disposition Patient Disposition: 30 Still Patient Discharge Details Diagnosis: Dehydration, Mucinous adenocarcinoma of appendix, Hypomagnesemia, Chronic diarrhea Physicians Team ED Provider: Faraz Ta Primary Care Provider: Suraj Berry Attending Provider: Heladio Philippe Discharge Interventions Interventions: Vital Signs Last Done: 04/21/18 19:13 Status ED Status: Admitted Observation Patient
[2018-04-21] MEDS ORDERED: Mag Sulf 1 gm/100 ml Premix 100 ML IV.SIG ONE (18:48)
[2018-04-21 19:04] LABS: Alanine Aminotransferase 17 U/L (10-53); Alkaline Phosphatase 74 U/L (45-117); Digoxin 0.7 ng/mL (0.8-2.0); Total Protein 6.2 g/dL (6.4-8.2)
--- NOTE | 2018-04-21 19:55 | P.HP ---
History of Present Illness Service: [facility] hospitalist Primary Care Physician: Suraj Berry MD Chief Complaint: increasine weakness,chronic diarrhea History of Present Illness: HPI narrative: Is a 73-year-old female with a history of mucinous adenocarcinoma of the appendix, atrial fibrillation, who presents today at the request of her doctor for evaluation of possible dehydration, hypokalemia, hypomagnesemia. The patient presents with a low systolic blood pressure. Her blood pressures at home of been in the low 90s, high 80s over the last 24 hours. She denies any chest pain, chest pressure. She does report lightheadedness and dizziness. The patient also gives history that she has had continuous diarrhea since being started on her chemotherapy. She was last on her IV chemotherapy 2 weeks ago. She reports continued diarrhea. She reports that she is been worked up for C. difficile and all types of infectious diarrhea and not have been found at this point. There are no other complaints at the time of examination,Patient clinically appears dehydrated will give IV fluid ,is on levaquin and flagyl . Will admit to observation and follow up labs. - Diagnosis (1) Dehydration (2) Mucinous adenocarcinoma of appendix (3) Hypomagnesemia (4) Chronic diarrhea Review of Systems All other systems reviewed negative except as stated in HPI PMFSH - History History Provided By: Patient - Medical History Medical History: Medical History (Last Reviewed 04/21/18 @ 19:52 by Liam Ayala MD) Cancer of appendix Esophageal stricture H/O: hysterectomy High cholesterol Neuropathy Osteopenia - Surgical History Surgical History: Surgical History (Last Reviewed 04/21/18 @ 19:52 by Liam Ayala MD) History of appendectomy Hx of salpingo-oophorectomy, bilateral - Tobacco History Second Hand Smoke Exposure: No Tobacco Use In Past 30 Days: No Smoking Status: Never smoker - Alcohol History How Often Do You Have a Drink Containing Alcohol: Never - Substance Use History Substance History: No History of Abuse - Travel History Recent Travel in the [place] Within the Last 8 Weeks: No Recent Travel Out of the Country Within the Last 8 Weeks: No - Immunization History Tetanus Immunization: <5 Years Medications and Allergies Active Medications: Active Medications Sodium Chloride (Ns Inj) 1,000 mls @ 0 mls/hr IV.SIG BOLUS [place]IV[place] Sodium Chloride (Ns Flush) 2 ml IV.FLUSH PRN PRN PRN Reason: FLUSH AFTER USING IV ACCESS Allergies Allergy/AdvReac Type Severity Reaction Status Date / Time No Known Allergies Allergy Unknown Uncoded 12/13/17 07:07 Home Medications Medication Instructions Recorded Confirmed Type atorvastatin 10 mg PO DAILY 04/05/18 04/21/18 History capecitabine See Label Instructions .ROUTE 04/05/18 04/21/18 History .COMPLEX oxaliplatin See Label Instructions .ROUTE 04/05/18 04/21/18 History .COMPLEX Exam Vital signs: Vital Signs 04/21/18 16:38 04/21/18 16:50 04/21/18 19:13 Temperature 97.7 F Pulse Rate 84 80 83 Respiratory Rate Blood Pressure 104/64 127/73 129/75 Pulse Oximetry 97 98 98 Intake & Output 04/21/18 04/21/18 04/22/18 06:59 18:59 06:59 Weight 52.163 kg Narrative: GENERAL: SKIN: poor turgor HEAD: Normocephalic. EYES: No scleral icterus. No injection or drainage. NECK: Supple, trachea midline. No JVD or lymphadenopathy. CARDIOVASCULAR: Regular rate and rhythm without murmurs, gallops, or rubs. RESPIRATORY: Breath sounds equal bilaterally. No accessory muscle use. GASTROINTESTINAL: Abdomen soft, non-tender, nondistended. MUSCULOSKELETAL: No cyanosis, or edema. BACK: Nontender without obvious deformity. No CVA tenderness. Results - Labs CBC & Chem 7: 04/21/18 17:55 04/21/18 17:55 Labs: Laboratory Results - last 24 hr 04/21/18 04/21/18 04/21/18 17:55 17:55 17:55 WBC 5.5 RBC 3.35 L Hgb 11.4 L Hct 33.3 L MCV 99.5 MCH 34.1 H MCHC 34.3 RDW 20.5 H Plt Count 267 D MPV 6.8 L Neut % (Auto) 60.7 Lymph % (Auto) 25.9 [place] % (Auto) 12.1 H Eos % (Auto) 0.3 Baso % (Auto) 1.0 Neut # (Auto) 3.4 Lymph # (Auto) 1.4 [place] # (Auto) 0.7 Eos # (Auto) 0.0 Baso # (Auto) 0.1 WBC Differential . Differential Comment Auto diff final Sodium 137 Potassium 3.7 Chloride 103 Carbon Dioxide 24.1 Anion Gap 10 BUN 9 Creatinine 0.47 L Estimated GFR Greater than 89 Random Glucose 90 Calcium 7.9 L Magnesium 1.4 L Total Bilirubin 0.2 AST 16 ALT 17 Alkaline Phosphatase 74 Total Protein 6.2 L D Albumin 2.3 L Urine Color Yellow Urine Clarity Cloudy H Urine pH 6.0 Ur Specific [place] 1.015 Urine Protein Negative Urine Glucose (UA) Negative Urine Ketones Negative Urine Occult Blood Negative Urine Nitrate Negative Urine Bilirubin Negative Urine Urobilinogen Less than 2 Ur Leukocyte Esterase Trace H Urine RBC 2 Urine WBC 3 Ur Squamous Epith Cells 28 Urine Bacteria Occasional H Hyaline Casts 1 Urine Mucus Few H Micro UA Comment Culture not ind Ur Microscopic Review Not Reportable Urine Culture Comments Culture not ind Digoxin 0.7 L Caprini VTE Risk Assessment Caprini VTE Risk Assessment: Moderate/High Risk (score >= 2) Caprini Risk Assessment Model: Point Value = 1 Point Value = 2 Point Value = 3 Point Value = 5 Age 41-60 Minor surgery BMI > 25 kg/m2 Swollen legs Varicose veins or History of unexplained or recurrent spontaneous Oral contraceptives or hormone replacement Sepsis (< 1 month) Serious lung disease, including pneumonia (< 1 month) Abnormal pulmonary function Acute myocardial infarction Congestive heart failure (< 1 month) History of inflammatory bowel disease Medical patient at bed rest Age 61-74 Arthroscopic surgery Major open surgery (> 45 min) Laparoscopic surgery (> 45 min) Malignancy Confined to bed (> 72 hours) Immobilizing plaster cast Central venous access Age >= 75 History of VTE Family history of VTE Factor V Leiden Prothrombin [id number] Lupus anticoagulant Anticardiolipin antibodies Elevated serum homocysteine Heparin-induced thrombocytopenia Other congenital or acquired thrombophilia Stroke (< 1 month) Elective arthroplasty Hip, pelvis, or leg fracture Acute spinal cord injury (< 1 month) Prophylaxis Regimen: Total Risk Factor Score Risk Level Prophylaxis Regimen 0-1 Low Early ambulation 2 Moderate Order ONE of the following: *Sequential Compression Device (SCD) *Heparin 5000 units SQ BID 3-4 Higher Order ONE of the following medications: *Heparin 5000 units SQ TID *Enoxaparin/Lovenox 40 mg SQ daily (WT < 150 kg, CrCl > 30 mL/min) *Enoxaparin/Lovenox 30 mg SQ daily (WT < 150 kg, CrCl > 10-29 mL/min) *Enoxaparin/Lovenox 30 mg SQ BID (WT < 150 kg, CrCl > 30 mL/min) AND/OR *Sequential Compression Device (SCD) 5 or more Highest Order ONE of the following medications: *Heparin 5000 units SQ TID (Preferred with Epidurals) *Enoxaparin/Lovenox 40 mg SQ daily (WT < 150 kg, CrCl > 30 mL/min) *Enoxaparin/Lovenox 30 mg SQ daily (WT < 150 kg, CrCl > 10-29 mL/min) *Enoxaparin/Lovenox 30 mg SQ BID (WT < 150 kg, CrCl > 30 mL/min) AND *Sequential Compression Device (SCD) Assessment and Plan - Assessment (1) Dehydration Code(s): E86.0 - Dehydration Status: Acute Plan: hydrate and recheck labs with magnesium (2) Mucinous adenocarcinoma of appendix Code(s): C18.1 - Malignant neoplasm of appendix Status: Acute Plan: followed by oncology (3) Hypomagnesemia Code(s): E83.42 - Hypomagnesemia Status: Acute Plan: received IV magnesium and follow up levels (4) Chronic diarrhea Code(s): K52.9 - Noninfective gastroenteritis and colitis, unspecified Status : Acute Plan: work up to date negative may be related to chemo last treatment 2 weeks ago - Plan further plan as case develops Code Status: full Discussed Condition With: patient
--- NOTE | 2018-04-21 20:03 | P.PNADD ---
Addendum to Inpatient Note Additional information: Patient Blood Pressure was low and has been low since has been on cardiazem , will hold for now as BP after fluid has improved
[2018-04-21] MEDS ORDERED: Sodium Chloride 0.45 % Inj 1,000 ML IV.CONT SCH (20:15)
[2018-04-21] MEDS ORDERED: Vancomycin Consult Pharmacy 1 EACH OTHER SCH (20:15)
[2018-04-21] MEDS ORDERED: Vancomycin Inj 1,250 MG in Sodium Chlor 0.9% Inj 250 ML IV.SIG ONE (21:00)
[2018-04-21] MEDS: dilTIAZem CD 120 MG Capsule PO SCH (22:29)
[2018-04-22 04:33] VITALS: RESP 16
[2018-04-22 07:21] LABS: Alanine Aminotransferase 12 U/L (10-53); Albumin 1.9 g/dL (3.4-5.0); Alkaline Phosphatase 65 U/L (45-117); Anion Gap 9 meq/L (5-15); Aspartate Aminotransferase 11 U/L (15-37); Blood Urea Nitrogen 6 mg/dL (7-18); Calcium 7.4 mg/dL (8.5-10.1); Carbon Dioxide 25.9 meq/L (21.0-32.0); Chloride 110 meq/L (98-107); Glomerular Filtration Rate Greater Than 89 mL/min (>89); Glucose,Random 118 mg/dL (74-106); Magnesium 1.9 mg/dL (1.5-2.5); Sodium 145 meq/L (136-145); Total Protein 5.2 g/dL (6.4-8.2)
[2018-04-22] MEDS ORDERED: levoFLOXacin 500 MG Tablet PO SCH (09:00)
[2018-04-22] MEDS ORDERED: Digoxin 250 MCG Tablet PO SCH (09:00)
--- NOTE | 2018-04-22 10:05 | P.PNIM ---
Subjective Interval history: Pt reports that she is feeling much better this morning and is insisting on going home today She reports that she does not want to take Digoxin and states that she will refuse it. She is willing to take her Cardizem but pt had significantly low BP yesterday with reported systolic BP in the 70's and was very dizzy which prompted her evaluation in the ED last night. She has not had any further diarrhea since yesterday. She states that she took Imodium yesterday afternoon. She had a small mushy BM this morning. No nausea/vomiting Pt tolerating oral intake Physical Exam Vital signs: Vital Signs 04/21/18 16:38 04/21/18 16:50 04/21/18 19:13 Temperature 97.7 F Pulse Rate 84 80 83 Respiratory Rate 16 18 18 Blood Pressure 104/64 127/73 129/75 Pulse Oximetry 97 98 98 04/21/18 22:25 04/22/18 00:00 04/22/18 00:30 Temperature 97.8 F Pulse Rate 80 89 83 Respiratory Rate 18 Blood Pressure 126/82 Pulse Oximetry 97 04/22/18 04:00 04/22/18 04:03 04/22/18 07:00 Temperature 98.1 F Pulse Rate 82 68 73 Respiratory Rate 16 Blood Pressure 114/74 Pulse Oximetry 95 04/22/18 09:11 Temperature Pulse Rate Respiratory Rate Blood Pressure Pulse Oximetry 95 Intake & Output 04/21/18 04/22/18 04/22/18 18:59 06:59 18:59 Intake Total 842.5 / 842.5 Output Total 1400 / 1400 Balance -557.5 / -557.5 Weight 52.163 kg 53.2 kg Intake: IV 362.5 / 362.5 Magnesium Sulfate 1 gm/D5W 100 100 / 100 ml Premix 100 ML @ 100 mls/hr IV.SIG ONCE ONE Rx#:[id number] Vancomycin Inj 1,250 MG In NS 262.5 / 262.5 Inj 250 ML @ 250 mls/hr IV.SIG ONCE ONE Rx#:[id number] Oral 480 / 480 Output: Urine 1400 / 1400 Narrative: GENERAL: NAD SKIN: poor turgor HEAD: Normocephalic. EYES: No scleral icterus. No injection or drainage. NECK: Supple, trachea midline. No JVD or lymphadenopathy. CARDIOVASCULAR: Regular rate and rhythm without murmurs, gallops, or rubs. RESPIRATORY: Breath sounds equal bilaterally. No accessory muscle use. GASTROINTESTINAL: Abdomen soft, non-tender, nondistended. MUSCULOSKELETAL: No cyanosis, or edema. BACK: Nontender without obvious deformity. No CVA tenderness. Results - Labs CBC & Chem 7: 04/21/18 17:55 04/22/18 05:38 Laboratory Results - last 24 hr 04/21/18 04/21/18 04/21/18 17:55 17:55 17:55 WBC 5.5 RBC 3.35 L Hgb 11.4 L Hct 33.3 L MCV 99.5 MCH 34.1 H MCHC 34.3 RDW 20.5 H Plt Count 267 D MPV 6.8 L Neut % (Auto) 60.7 Lymph % (Auto) 25.9 [place] % (Auto) 12.1 H Eos % (Auto) 0.3 Baso % (Auto) 1.0 Neut # (Auto) 3.4 Lymph # (Auto) 1.4 [place] # (Auto) 0.7 Eos # (Auto) 0.0 Baso # (Auto) 0.1 WBC Differential . Differential Comment Auto diff final Sodium 137 Potassium 3.7 Chloride 103 Carbon Dioxide 24.1 Anion Gap 10 BUN 9 Creatinine 0.47 L Estimated GFR Greater than 89 Random Glucose 90 Calcium 7.9 L Prot Corrected Calcium Magnesium 1.4 L Total Bilirubin 0.2 AST 16 ALT 17 Alkaline Phosphatase 74 Total Protein 6.2 L D Albumin 2.3 L Urine Color Yellow Urine Clarity Cloudy H Urine pH 6.0 Ur Specific [place] 1.015 Urine Protein Negative Urine Glucose (UA) Negative Urine Ketones Negative Urine Occult Blood Negative Urine Nitrate Negative Urine Bilirubin Negative Urine Urobilinogen Less than 2 Ur Leukocyte Esterase Trace H Urine RBC 2 Urine WBC 3 Ur Squamous Epith Cells 28 Urine Bacteria Occasional H Hyaline Casts 1 Urine Mucus Few H Micro UA Comment Culture not ind Ur Microscopic Review Not Reportable Urine Culture Comments Culture not ind Digoxin 0.7 L 04/22/18 05:38 WBC RBC Hgb Hct MCV MCH MCHC RDW Plt Count MPV Neut % (Auto) Lymph % (Auto) [place] % (Auto) Eos % (Auto) Baso % (Auto) Neut # (Auto) Lymph # (Auto) [place] # (Auto) Eos # (Auto) Baso # (Auto) WBC Differential Differential Comment Sodium 145 Potassium 4.0 Chloride 110 H Carbon Dioxide 25.9 Anion Gap 9 BUN 6 L Creatinine 0.43 L Estimated GFR Greater than 89 Random Glucose 118 H Calcium 7.4 L* Prot Corrected Calcium 8.5 Magnesium 1.9 Total Bilirubin 0.1 L AST 11 L ALT 12 Alkaline Phosphatase 65 Total Protein 5.2 L D Albumin 1.9 L Urine Color Urine Clarity Urine pH Ur Specific [place] Urine Protein Urine Glucose (UA) Urine Ketones Urine Occult Blood Urine Nitrate Urine Bilirubin Urine Urobilinogen Ur Leukocyte Esterase Urine RBC Urine WBC Ur Squamous Epith Cells Urine Bacteria Hyaline Casts Urine Mucus Micro UA Comment Ur Microscopic Review Urine Culture Comments Digoxin Assessment and Plan - Assessment (1) Dehydration Code(s): E86.0 - Dehydration Status: Acute Plan: Dehydration Hypomagnesemia Chronic diarrhea felt to be related to chemo +/- enteritis - Pt is a 73 y/o female with a history of mucinous adenocarcinoma of the appendix and atrial fibrillation, who presented to the ED at [facility] on 04/21/18 after being seen by her PCP yesterday for evaluation of possible dehydration, hypokalemia, hypomagnesemia. The patient presented with a low systolic blood pressure of 104/64 and states that her BP was even lower earlier in the day yesterday with systolic in the 70's. She reported lightheadedness and dizziness. - The patient also gives history that she has had continuous diarrhea since being started on her chemotherapy. She was last on her IV chemotherapy 3 weeks ago. During recent hospitalization she was worked up for infectious diarrhea which was negative. - Pt had a CT Abd/pelvis during recent admission which indicated findings of enteritis and she was started on Levaquin and Flagyl. She will complete this on 04/24/18. - At admission the patient clinically appeared dehydrated was given IV fluid and electrolyte replacement. - Pt appears to be clinically improved this morning and is insisting on going home today - Pt has been eating and drinking without difficulty. She has not had any further diarrhea since yesterday - Pt can continue the Imodium as needed for the diarrhea upon discharge. - She will complete her Abx on , 04/24/18 - We will have her recheck her labs on Saturday04/28/[address] Jamal ulrich - Pt was recently discharged on Cardizem CD 120mg po daily and Digoxin 0.25mg po daily - She was having issues with low BP prior to admission likely with her dehydration/diarrhea in the setting of her Cardizem this perpetuated the low BP - We recommended that the pt hold the Cardizem for now and continue on the Digoxin at home - We will arrange for [facility] to monitor her BP and HR at home - Pt is to followup with her PCP and her [employer] Patient examined. Assessment and plan formulated with Bee Roberto PA-C. I agree with the above. Pt apparently had a low blood pressure reading yesterday morning, but proceeded to take her cardizem. Afterwards pt felt quite dizzy. Her PCP recommended that pt come to the hospital for IVFs. Pt's renal functions and electrolytes were essentially normal this admission. During prior admission, pt's electrolytes and atrial fibrillation with RVR was problematic. telemetry shows that the HR is controlled. I have recommended that we stop cardizem d/t pt's bouts of hypotension. I have recommended that we continue digoxin. I discussed this with Ms. Moya. Pt c/o continued bouts of diarrhea and I recommended that pt continue to use prn lomotil for symptomatic diarrhea. Pt to have repeat BMP and digoxin level at [facility] lab next Saturday, April 28 at [facility] lab with results to pt's PCP, Dr. Suraj Berry. Pt to f/u with PCP, Dr. Suraj Berry in 1 week. Pt to f/u with her [employer], Dr. Cathy Youssef, in 2 weeks. (2) Atrial fibrillation with RVR Code(s): I48.91 - Unspecified atrial fibrillation Status: Acute (3) Mucinous adenocarcinoma of appendix Code(s): C18.1 - Malignant neoplasm of appendix Status: Acute (4) Hypomagnesemia Code(s): E83.42 - Hypomagnesemia Status: Acute (5) Chronic diarrhea Code(s): K52.9 - Noninfective gastroenteritis and colitis, unspecified Status : Acute
[2018-04-22 10:19] VITALS: BP 112/69; TEMP 97.9; O2SAT 97
[2018-04-22] MEDS: metroNIDAZOLE 500 MG Tablet PO SCH ×2 (10:25→13:16)
[2018-04-22] MEDS: dilTIAZem CD 120 MG Capsule PO SCH (10:39)
--- NOTE | 2018-04-22 10:47 | P.DCO ---
- Diagnosis (1) Atrial fibrillation with RVR Status: Acute (2) Mucinous adenocarcinoma of appendix Status: Acute (3) Dehydration Status: Acute (4) Hypomagnesemia Status: Acute (5) Chronic diarrhea Status: Acute - Physical Therapy Order: Evaluate and treat - Home Health Nursing Order: Medical education, Signs/symptoms of disease process, Nursing assessment with vital signs Instructions: Please draw a CBC and BMP, and Digoxin level on Saturday04/28/[address] Suraj Berry - Case Management Consult Yes - Certification I have seen patient Mar Moya on 04/22/18. My clinical findings support the need for the requested home health care services because: Deconditioned with increased weakness I certify that my clinical findings support that this patient is homebound because: Unsteady gait/balance
[2018-04-22] MEDS ORDERED: Vancomycin Inj 750 MG in Sodium Chlor 0.9% Inj 250 ML IV.SIG SCH (11:00)
[2018-04-22 11:10] VITALS: PULSE 76
--- NOTE | 2018-04-22 16:34 | ECG ---
Date Performed: 04/21/2018 Time Performed: 17:57:21 PTAGE: 73 years EKG: NORMAL Sinus rhythm WITH PVCs AND RANDOM PACs ABNORMAL RHYTHM ECG PREVIOUS TRACING : 04/11/2018 15.26 DOCTOR: Hans Merritt Interpretating Date/Time 04/22/2018 16:32:47
[2018-04-23] MEDS ORDERED: Pharmacy Ordered Lab Info OTHER ONE (10:45)
== END 2018-04-22 13:40 | disposition home health service (06) ==
LOC: NEDA 16:25 → NEPC 16:25 → HCIN 21:53
PROVIDERS: ADMIT Hospitalist; ATTEND Hospitalist

== ENCOUNTER 2018-07-03 17:24 | Inpatient (IN) ==
[2018-07-03] MEDS ORDERED: Morphine Inj 4 MG/ML Vial IV.PUSH ONE (17:51)
--- NOTE | 2018-07-03 17:59 | ED ---
HPI General Chief Complaint: Abdominal Pain Stated Complaint: dehydration Time Seen by Provider: 07/03/18 17:46 Source: patient Mode of arrival: ambulatory Limitations: no limitations History of Present Illness HPI narrative: 73 y/o female presents with note of diffuse abdominal pain and nonbloody emesis. She denies any active diarrhea, constipation or fever. Quality is crampy. Severity is moderate. She denies specific modifying factors. She states next week she is going to have additional surgery at the [facility] to remove more of her adenocarcinoma that was found when she had recent abdominal surgery. She denies any other concurrent complaints. Related Data Home Medications Medication Instructions Recorded Confirmed atorvastatin 10 mg PO DAILY 04/05/18 04/21/18 capecitabine See Label Instructions .ROUTE 04/05/18 04/21/18 .COMPLEX oxaliplatin See Label Instructions .ROUTE 04/05/18 04/21/18 .COMPLEX Previous Rx's Medication Instructions Recorded promethazine 25 mg PO TIDAC PRN #30 tab 04/18/18 Allergies Allergy/AdvReac Type Severity Reaction Status Date / Time No Known Allergies Allergy Unknown Uncoded 12/13/17 07:07 Review of Systems ROS: all other systems reviewed are negative [facility] Medical History Medical History Cancer of appendix (Acute) Esophageal stricture (Acute) H/O: hysterectomy (Acute) High cholesterol (Acute) Neuropathy (Acute) Osteopenia (Acute) Surgical History Surgical History History of appendectomy (Acute) Hx of salpingo-oophorectomy, bilateral (Acute) Social History Social History Substance History: No History of Abuse Second Hand Smoke Exposure: No Smoking Status: Never smoker How Often Do You Have a Drink Containing Alcohol: Never Recent Travel in [place] within the Last 8 Weeks: No Recent Out of Country Travel within the Last 8 Weeks: No Exam Narrative Exam Narrative: GENERAL: 73 y/o female in no apparent distress SKIN: Focused skin assessment warm/dry. HEAD: Atraumatic. Normocephalic. EYES: Pupils equal and round. No scleral icterus. No injection or drainage. ENT: No nasal bleeding or discharge. NECK: Trachea midline. CARDIOVASCULAR: Regular rate and rhythm. RESPIRATORY: No accessory muscle use. Clear to auscultation. Breath sounds equal bilaterally. GASTROINTESTINAL: Abdomen soft, diffusely ttp, nondistended. MUSCULOSKELETAL: No obvious deformities. No clubbing. No cyanosis. NEUROLOGICAL: Awake and alert. Motor grossly within normal limits. Normal speech. PSYCHIATRIC: Appropriate mood and affect; insight and judgment normal. Course Initial Documented Vital Signs Temperature 97.5 F L 07/03/18 17:29 Pulse Rate 96 H 07/03/18 17:29 Respiratory Rate 18 07/03/18 17:29 Blood Pressure 161/79 H 07/03/18 17:29 Pulse Oximetry 96 07/03/18 17:29 Last Documented Vital Signs Temperature 97.5 F L 07/03/18 17:29 Pulse Rate 96 H 07/03/18 17:29 Respiratory Rate 18 07/03/18 17:29 Blood Pressure 161/79 H 07/03/18 17:29 Pulse Oximetry 96 07/03/18 18:11 Sign Out Sign Out Data: Patient Sign Out occurred on 07/03/18 at 19:26. Patient's care was discussed, and care was transferred from Chhaya Ahumada MD to Yuan Daniels MD. Sign Out Comment: please follow workup and reevaluate Last updated by Chhaya Ahumada MD at 07/03/18 18:39 Post-Handoff Eval: Case signed out to me by Dr. Sethi awaiting workup. Patient has history of adenocarcinoma of the appendix and is currently awaiting further surgery. She has a significant pancreatitis with lipase of 20,000. CAT scan is pending, but the patient is doing well in the ER otherwise, planning to admit for further evaluation and treatment. Case is discussed with Dr. Forrester for admission. Medical Decision Making MDM Narrative Medical decision making narrative: We will check blood work, urinalysis, CT and reevaluate Medical Screen Exam Complete: Yes Emergency Medical Condition: Yes Differential Diagnosis Differential Diagnosis: uti, obstruction, stone Lab Data Result diagrams: 07/03/18 18:00 07/03/18 19:25 Lab Results 07/03/18 07/03/18 Range/Units 18:00 19:25 WBC 13.0 H (4.0-11.0) th/mm3 RBC 4.39 (4.00-5.30) mil/mm3 Hgb 15.2 (11.6-15.3) gm/dL Hct 44.1 (35.0-46.0) % MCV 100.3 H (80.0-100.0) fL MCH 34.6 H (27.0-34.0) pg MCHC 34.5 (32.0-36.0) % RDW 13.0 (11.6-17.2) % Plt Count 256 (150-450) th/mm3 MPV 7.9 (7.0-11.0) fL Neut % (Auto) 91.8 H (16.0-70.0) % Lymph % (Auto) 4.2 L (9.0-44.0) % Fisher % (Auto) 3.8 (0.0-8.0) % Eos % (Auto) 0.0 (0.0-4.0) % Baso % (Auto) 0.2 (0.0-2.0) % Neut # (Auto) 11.9 H (1.8-7.7) th/mm3 Lymph # (Auto) 0.5 L (1.0-4.8) th/mm3 Fisher # (Auto) 0.5 (0.0-0.9) th/mm3 Eos # (Auto) 0.0 (0.0-0.4) th/mm3 Baso # (Auto) 0.0 (0.0-0.2) th/mm3 WBC Differential . Differential Comment Auto diff final Sodium 142 (136-145) meq/L Potassium 3.7 (3.5-5.1) meq/L Chloride 113 H (98-107) meq/L Carbon Dioxide 21.6 (21.0-32.0) meq/L Anion Gap 7 (5-15) meq/L BUN 14 (7-18) mg/dL Creatinine 0.57 (0.50-1.00) mg/dL Random Glucose 112 H (74-106) mg/dL Calcium 8.4 L (8.5-10.1) mg/dL Magnesium 1.9 (1.5-2.5) mg/dL Total Bilirubin 0.5 (0.2-1.0) mg/dL AST 26 (15-37) U/L ALT 25 (10-53) U/L Alkaline Phosphatase 89 (45-117) U/L Total Protein 7.2 (6.4-8.2) g/dL Albumin 3.4 (3.4-5.0) g/dL Lipase 34841 H (73-393) U/L Discharge Plan Discharge Disposition Patient Disposition: ED Admit(ED Internal Use Only) Discharge Condition Condition: Stable Discharge Order Discharge Orders: ED Use Only Admit Order (Routine); Ordered 07/03/18 Ordered By: Yuan Daniels Discharge Details Anticipated Discharge Date: 07/03/18 Diagnosis: Pancreatitis Physicians Team ED Provider: Yuan Daniels Primary Care Provider: Suraj Berry Rxs /Orders / Referrals /Forms Prescriptions: No Action atorvastatin 10 mg Tablet 10 mg PO DAILY RF: 0 oxaliplatin 50 mg Recon Soln See Label Instructions .ROUTE .COMPLEX RF: 0 capecitabine 500 mg Tablet See Label Instructions .ROUTE .COMPLEX RF: 0 promethazine 25 mg Tablet 25 mg PO TIDAC PRN (Reason: n/v) Qty: 30 RF: 0 Discharge Interventions Interventions: Vital Signs Last Done: 07/03/18 18:08 Status ED Status: Admitted Patient
[2018-07-03] MEDS ORDERED: Sod Chloride 0.9% Inj 1,000 ML IV.SIG SCH ×2 (18:00→22:00)
[2018-07-03 18:12] LABS: Baso % (Auto) 0.2 % (0.0-2.0); Hematocrit 44.1 % (35.0-46.0); Hemoglobin 15.2 gm/dL (11.6-15.3); Lymph # (Auto) 0.5 th/mm3 (1.0-4.8); Lymph % (Auto) 4.2 % (9.0-44.0); Mean Corpuscular HGB Conc 34.5 % (32.0-36.0); Mean Corpuscular Hemoglobin 34.6 pg (27.0-34.0); Mean Corpuscular Volume 100.3 fL (80.0-100.0); Mean Platelet Volume 7.9 fL (7.0-11.0); Mono # (Auto) 0.5 th/mm3 (0.0-0.9); Mono % (Auto) 3.8 % (0.0-8.0); Neut # (Auto) 11.9 th/mm3 (1.8-7.7); Neut % (Auto) 91.8 % (16.0-70.0); Platelet Count 256 th/mm3 (150-450); Red Blood Count 4.39 mil/mm3 (4.00-5.30)
[2018-07-03 20:01] LABS: Albumin 3.4 g/dL (3.4-5.0); Anion Gap 7 meq/L (5-15); Aspartate Aminotransferase 26 U/L (15-37); Blood Urea Nitrogen 14 mg/dL (7-18); Calcium 8.4 mg/dL (8.5-10.1); Carbon Dioxide 21.6 meq/L (21.0-32.0); Chloride 113 meq/L (98-107); Glucose,Random 112 mg/dL (74-106); Magnesium 1.9 mg/dL (1.5-2.5); Potassium 3.7 meq/L (3.5-5.1); Sodium 142 meq/L (136-145)
[2018-07-03 20:02] LABS: Alanine Aminotransferase 25 U/L (10-53)
[2018-07-03 20:04] LABS: Alkaline Phosphatase 89 U/L (45-117); Lipase 20562 U/L (73-393); Total Protein 7.2 g/dL (6.4-8.2)
[2018-07-03] MEDS ORDERED: Morphine Sulfate Inj 8 MG/ML Vial IV.PUSH PRN (22:24)
--- NOTE | 2018-07-03 22:24 | P.HP ---
History of Present Illness Service: [facility] adult med Primary Care Physician: Suraj Berry MD Chief Complaint: n/v, abd pain History of Present Illness: Pt is 73 yo female with diagnosis of mucinous adenocarcinoma appendiceal origin presents with note of diffuse abdominal pain and nonbloody emesis which started this AM. She denies any active diarrhea, constipation or fever. Quality is crampy. She states next week she is scheduled to have HIPEC abdominal surgery at the [facility] to remove more of her adenocarcinoma. Reviewed MRI from May [address] chest done 07/01/18 at [facility]...no mention of pancreatitis noted on 07/01/18 CT. She has been undergoing chemotx for last few months. She denies any other concurrent complaints. Dr King and Dr Cuellar evaluated pt in December 2017. She had Right ovarian mass with torsion, significant intraperitoneal adhesions and intraperitoneal seeding.Robotic- assisted laparoscopic hysterectomy, bilateral salpingo-oophorectomy (with resection of approximately 14 cm torsed right ovarian mass), extensive lysis of adhesions and right hemicolectomy were performed. Pathology revealed features of mucinous adenoCA. Also a hemorrhagic right ovarian cyst with features of torsion. ER eval reveals elevated lipase and abdominal ttp. Imaging is still pending. PMH hyperlipidemia mucinous adenocarcinoma appendiceal origin On December 13, 2017 Robotic-assisted laparoscopic hysterectomy,BSO, (with resection of approximately 14 cm torsed right ovarian mass), extensive lysis of adhesions and right hemicolectomy performed. Paroxysmal Afib FH: Father had pheochromocytoma and OR Mother had lymphoma sister had breast ca SH. rare etoh. no tobacco use - Diagnosis (1) Pancreatitis (2) Dehydration (3) Mucinous adenocarcinoma of appendix Review of Systems Constitutional: Reports anorexia, Reports chills, Reports fatigue, Reports lack of energy, Reports malaise, Reports weakness, Reports weight loss, Denies body ache(s), Denies daytime sleepiness, Denies excessive sweating, Denies fever(s), Denies headache(s), Denies increased appetite, Denies night sweats, Denies weight gain, Denies other Cardiovascular: Denies chest pain, Denies chest pain at rest, Denies chest pain with activity, Denies excessive sweating, Denies fainting, Denies fast heart rate, Denies foot swelling, Denies generalized swelling, Denies irregular heart rhythm, Denies leg pain with activity, Denies leg sores, Denies leg swelling, Denies lightheadedness, Denies radiating jaw, neck or arm pain, Denies rapid, pounding, or irregular heartbeat, Denies shortness of breath, Denies shortness of breath with activity, Denies shortness of breath when lying down, Denies shortness of breath causing sudden awakening, Denies slow heart rate, Denies other Respiratory: Denies change in phlegm color, Denies chest congestion, Denies cough, Denies coughing up blood, Denies excessive phlegm production, Denies pain on inspiration, Denies pain with cough, Denies shortness of breath, Denies shortness of breath with activity, Denies snoring, Denies stridor, Denies wheezing, Denies other Gastrointestinal: Reports abdominal pain, Reports bloating, Reports heartburn, Reports loose stools, Reports nausea, Reports vomiting Musculoskeletal: Reports back pain, Reports joint pain Psychiatric: Reports anxiety Allergic/Immunologic: Reports GI upset with certain foods PMFSH - History History Provided By: Patient - Medical History Medical History: Medical History (Last Updated 07/03/18 @ 22:16 by Jessee Forrester MD, PhD) Mucinous adenocarcinoma Cancer of appendix Esophageal stricture H/O: hysterectomy High cholesterol Neuropathy Osteopenia - Surgical History Surgical History: Surgical History (Last Reviewed 07/03/18 @ 18:02 by Chhaya Ahumada MD) History of appendectomy Hx of salpingo-oophorectomy, bilateral - Family History Family History: Family History (Last Updated 07/03/18 @ 22:17 by Jessee Forrester MD, PhD) Father Family history of acute myocardial infarction Sister Breast CA Mother Lymphoma - Social History I have reviewed the patient's Social History: Yes - Tobacco History Second Hand Smoke Exposure: No Tobacco Use In Past 30 Days: No Smoking Status: Never smoker - Alcohol History How Often Do You Have a Drink Containing Alcohol: Never - Substance Use History Substance History: No History of Abuse - Travel History Recent Travel in the [place] Within the Last 8 Weeks: No Recent Travel Out of the Country Within the Last 8 Weeks: No - Immunization History Tetanus Immunization: Unsure Medications and Allergies Active Medications: Active Medications Sodium Chloride (Ns Inj) 1,000 mls @ 1,000 mls/hr IV.SIG BOLUS LIVAN Stop: 07/03/18 22:59 Sodium Chloride (Ns Flush) 2 ml IV.FLUSH PRN PRN PRN Reason: FLUSH AFTER USING IV ACCESS Allergies Allergy/AdvReac Type Severity Reaction Status Date / Time No Known Allergies Allergy Unknown Uncoded 12/13/17 07:07 Home Medications Medication Instructions Recorded Confirmed Type atorvastatin 10 mg PO DAILY 04/05/18 04/21/18 History capecitabine See Label Instructions .ROUTE 04/05/18 04/21/18 History .COMPLEX oxaliplatin See Label Instructions .ROUTE 04/05/18 04/21/18 History .COMPLEX Exam Vital signs: Vital Signs 07/03/18 17:29 07/03/18 18:11 Temperature 97.5 F L Pulse Rate 96 H Respiratory Rate 18 Blood Pressure 161/79 H Pulse Oximetry 96 96 Intake & Output 07/03/18 07/03/18 07/04/18 06:59 18:59 06:59 Weight 56.699 kg Narrative: GENERAL: thin, anxious, a/o, cooperative SKIN: xerotic HEAD: Atraumatic. Normocephalic. EYES: Pupils equal and round. No scleral icterus. No injection or drainage. ENT: No nasal bleeding or discharge. Mucous membranes pink and moist. NECK: Trachea midline. No JVD. CARDIOVASCULAR: Regular rate and rhythm. No significant murmur appreciated. RESPIRATORY: No accessory muscle use. Clear to auscultation. Breath sounds equal bilaterally. GASTROINTESTINAL: Abdomen soft, nondistended. mild ttp epigastric region, no g/ r. Hepatic and splenic margins not palpable. MUSCULOSKELETAL: Extremities without clubbing, cyanosis, or edema. No obvious deformities. NEUROLOGICAL: Awake and alert. No obvious cranial nerve deficits. Motor grossly within normal limits. Five out of 5 muscle strength in the arms and legs. Normal speech. PSYCHIATRIC: Appropriate mood and affect with slight anxiety noted; insight and judgment normal. Results - Labs CBC & Chem 7: 07/03/18 18:00 07/03/18 19:25 Labs: Laboratory Results - last 24 hr 07/03/18 07/03/18 18:00 19:25 WBC 13.0 H RBC 4.39 Hgb 15.2 Hct 44.1 MCV 100.3 H MCH 34.6 H MCHC 34.5 RDW 13.0 Plt Count 256 MPV 7.9 Neut % (Auto) 91.8 H Lymph % (Auto) 4.2 L Billings % (Auto) 3.8 Eos % (Auto) 0.0 Baso % (Auto) 0.2 Neut # (Auto) 11.9 H Lymph # (Auto) 0.5 L Billings # (Auto) 0.5 Eos # (Auto) 0.0 Baso # (Auto) 0.0 WBC Differential . Differential Comment Auto diff final Sodium 142 Potassium 3.7 Chloride 113 H Carbon Dioxide 21.6 Anion Gap 7 BUN 14 Creatinine 0.57 Random Glucose 112 H Calcium 8.4 L Magnesium 1.9 Total Bilirubin 0.5 AST 26 ALT 25 Alkaline Phosphatase 89 Total Protein 7.2 Albumin 3.4 Lipase 59463 H Caprini VTE Risk Assessment Caprini VTE Risk Assessment: Moderate/High Risk (score >= 2) Caprini Risk Assessment Model: Point Value = 1 Point Value = 2 Point Value = 3 Point Value = 5 Age 41-60 Minor surgery BMI > 25 kg/m2 Swollen legs Varicose veins or History of unexplained or recurrent spontaneous Oral contraceptives or hormone replacement Sepsis (< 1 month) Serious lung disease, including pneumonia (< 1 month) Abnormal pulmonary function Acute myocardial infarction Congestive heart failure (< 1 month) History of inflammatory bowel disease Medical patient at bed rest Age 61-74 Arthroscopic surgery Major open surgery (> 45 min) Laparoscopic surgery (> 45 min) Malignancy Confined to bed (> 72 hours) Immobilizing plaster cast Central venous access Age >= 75 History of VTE Family history of VTE Factor V Leiden Prothrombin [id number] Lupus anticoagulant Anticardiolipin antibodies Elevated serum homocysteine Heparin-induced thrombocytopenia Other congenital or acquired thrombophilia Stroke (< 1 month) Elective arthroplasty Hip, pelvis, or leg fracture Acute spinal cord injury (< 1 month) Prophylaxis Regimen: Total Risk Factor Score Risk Level Prophylaxis Regimen 0-1 Low Early ambulation 2 Moderate Order ONE of the following: *Sequential Compression Device (SCD) *Heparin 5000 units SQ BID 3-4 Higher Order ONE of the following medications: *Heparin 5000 units SQ TID *Enoxaparin/Lovenox 40 mg SQ daily (WT < 150 kg, CrCl > 30 mL/min) *Enoxaparin/Lovenox 30 mg SQ daily (WT < 150 kg, CrCl > 10-29 mL/min) *Enoxaparin/Lovenox 30 mg SQ BID (WT < 150 kg, CrCl > 30 mL/min) AND/OR *Sequential Compression Device (SCD) 5 or more Highest Order ONE of the following medications: *Heparin 5000 units SQ TID (Preferred with Epidurals) *Enoxaparin/Lovenox 40 mg SQ daily (WT < 150 kg, CrCl > 30 mL/min) *Enoxaparin/Lovenox 30 mg SQ daily (WT < 150 kg, CrCl > 10-29 mL/min) *Enoxaparin/Lovenox 30 mg SQ BID (WT < 150 kg, CrCl > 30 mL/min) AND *Sequential Compression Device (SCD) Assessment and Plan - Assessment (1) Pancreatitis Code(s): K85.90 - Acute pancreatitis without necrosis or infection, unspecified Status: Acute Plan: ? etiology. No new meds per pt report. Will keep NPO, provide antiemetics, IVF and pain meds. Hopefully will be self limiting. CT pending. (2) Dehydration Code(s): E86.0 - Dehydration Status: Acute Plan: Provide IVF. Recheck labs in AM (3) Mucinous adenocarcinoma of appendix Code(s): C18.1 - Malignant neoplasm of appendix Status: Chronic Plan: Per oncology and [facility]. Hopefully can get her stabilized for surgery planned for 07/07/18. - Plan Code Status: full Discussed Condition With: Pt, her daughter and Er provider (1) Pancreatitis Qualifiers: Chronicity: acute
[2018-07-03] MEDS: Enoxaparin Inj 30 MG/0.3 ML Syringe SQ SCH (23:14)
--- NOTE | 2018-07-03 23:47 | CT ---
EXAM DATE: 07/03/2018 11:35 PM EST AGE/SEX: 73 years / Female INDICATIONS: Abdominal pain, vomiting. CLINICAL DATA: This is the patient's initial encounter. Patient reports that signs and symptoms have been present for 1 day and indicates a pain score of 8/10. MEDICAL/SURGICAL HISTORY: . Cancer of the appendix. Esophageal stricture. Appendectomy. Hyst erectomy. ORAL CONTRAST: No oral contrast ingested. RADIATION DOSE: 6.64 CTDI (mGy) COMPAR[place]: [facility] [place] & [place]ELVIS W/O CONTRAST, 04/16/2018. . TECHNIQUE: Multiple contiguous axial images were obtained through the abdomen and pelvis following b olus infusion of 73 ml Omnipaque 350 (iohexol) nonionic water-soluble contrast as a single exam dos e. No oral contrast ingested. Using automated exposure control and adjustment of the mA and/or kV ac cording to patient size, radiation dose was kept as low as reasonably achievable to obtain optimal di agnostic quality images. DICOM format image data is available electronically for review and comparis on. FINDINGS: There is significant fluid within the upper abdomen, it surrounds portions of the liver gomez creas and spleen. There is some fluid in the lesser sac and surrounding portions of the gallbladder. Lower Lungs: The visualized lower lungs are clear. Liver: The liver has a homogeneous density without space-occupying lesion other than numerous cysts. There is no dilation of the biliary tree. Some increased density within the gallbladder likely stones . Spleen: Homogeneous density without enlargement. Pancreas: Unremarkable without mass or calcification. Kidneys: Normal in size and shape. No evidence of mass or hydronephrosis. Adrenal Glands: Unremarkable. Aorta: The aorta and proximal iliac vessels are grossly unremarkable without aneurysmal dilation. Bowel/Mesentery: The bowel loops are grossly unremarkable. The cecum and sigmoid colon have a normal configuration. Prior surgery in the right lower quadrant with suture identified. Abdominal Wall: Small fatty umbilical hernia Retroperitoneum: No evidence of adenopathy in the retrocrural, para-aortic, or deep pelvic regions. Bladder: Contours are smooth. Significant free fluid in the pelvis. Reproductive Organs: No abnormal masses or calcifications seen. Inguinal: The inguinal region is unremarkable without evidence of adenopathy. Bony Structures: Unremarkable. CONCLUSION: 1. Fluid throughout the abdomen including in the cul-de-sac and the upper abdomen. The fluid surroun ds portions of the liver, pancreas and spleen. 2. Some debris in the gallbladder likely small stones. 3. No evidence of free air in the abdomen. Small anterior wall abdominal umbilical hernia only conta ining a small amount of fat Electronically signed by: Byron Ruelas MD Board Certified Radiologist 07/03/2018 11:46 PM EST
[2018-07-04 06:04] LABS: Baso % (Auto) 0.2 % (0.0-2.0); Hematocrit 38.4 % (35.0-46.0); Hemoglobin 13.1 gm/dL (11.6-15.3); Lymph # (Auto) 0.9 th/mm3 (1.0-4.8); Mean Corpuscular HGB Conc 34.2 % (32.0-36.0); Mean Corpuscular Hemoglobin 34.2 pg (27.0-34.0); Mean Corpuscular Volume 99.9 fL (80.0-100.0); Mean Platelet Volume 7.9 fL (7.0-11.0); Mono # (Auto) 0.9 th/mm3 (0.0-0.9); Mono % (Auto) 8.7 % (0.0-8.0); Neut # (Auto) 8.8 th/mm3 (1.8-7.7); Neut % (Auto) 83.1 % (16.0-70.0); Platelet Count 213 th/mm3 (150-450); Red Blood Count 3.84 mil/mm3 (4.00-5.30); Red Cell Distribution Width 12.5 % (11.6-17.2); White Blood Count 10.6 th/mm3 (4.0-11.0)
[2018-07-04 06:10] LABS: Anion Gap 8 meq/L (5-15); Blood Urea Nitrogen 10 mg/dL (7-18); Calcium 8.1 mg/dL (8.5-10.1); Carbon Dioxide 22.9 meq/L (21.0-32.0); Chloride 114 meq/L (98-107); Glucose,Random 105 mg/dL (74-106); Lipase 10354 U/L (73-393); Sodium 145 meq/L (136-145)
[2018-07-04] MEDS: Sodium Chloride 0.45 % Inj 1,000 ML IV.CONT SCH (10:09)
--- NOTE | 2018-07-04 11:15 | P.PNIM ---
Subjective Interval history: Patient no longer having N/V patient reports abd pain is much better Patient's main concern is getting to her scheduled HIPEC abdominal surgery at the [facility] 07/07/18 Physical Exam Vital signs: Last Vital Signs Temp 98.3 F 07/04/18 09:12 Pulse 85 07/04/18 09:12 Resp 19 07/04/18 09:12 BP 136/76 07/04/18 09:12 Pulse Ox 95 07/04/18 09:12 Narrative: GENERAL: This is a well-nourished, well-developed patient, in no apparent distress. CARDIOVASCULAR: Regular rate and rhythm RESPIRATORY: Clear to auscultation. Breath sounds equal bilaterally. No wheezes , rales, or rhonchi. GASTROINTESTINAL: soft, nondistended, nontender, normoactive bowel sounds MUSCULOSKELETAL: Extremities without clubbing, cyanosis, or edema. NEURO: Alert & Oriented x4 to person, place, time, situation. 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 She denies any active diarrhea, constipation or fever. Quality is crampy. She states next week she is scheduled to have HIPEC abdominal surgery at the [facility] to remove more of her adenocarcinoma. Reviewed MRI from May [address] chest done 07/01/18 at [facility]...no mention of pancreatitis noted on 07/01/18 CT. She reports that her last dose of chemotx was 02/2018. She denies any other concurrent complaints. Pancreatitis ? etiology. No new meds per pt report. Will keep NPO, provide antiemetics, IVF and pain meds. Abdomen/Pelvis CT 07/03/18 1. Fluid throughout the abdomen including in the cul-de-sac and the upper abdomen. The fluid surrounds portions of the liver, pancreas and spleen. 2. Some debris in the gallbladder likely small stones. 3. No evidence of free air in the abdomen. Small anterior wall abdominal umbilical hernia only containing a small amount of fat Lipase on admission 13599 -> 71793 (07/04) total bilirubin 0.5, AST 26. ALT 25, Alk Pos 89 recheck CMP and Lipase in AM Dehydration - improved Provided IVF. 07/04 BUN 10, Creatinine 0.47, Estimated GFR > 89 Mucinous adenocarcinoma of appendix Per oncology and [facility]. Hopefully can get her stabilized for surgery planned for 07/07/18. Dr. Philippe called Dr. Holley , discussed case. Dr Holley would like to look at the CT scan and talk with his team. CT scan faxed DVT prophylaxis with SCDs Attending Attestation The exam, history, and the medical decision-making described in the above note were completed with the assistance of the mid-level provider. I reviewed and agree with the findings presented. I attest that I had a fzxy-by-dmua encounter with the patient on the same day, and personally performed and documented my assessment and findings in the medical record. Patient examined. Assessment and plan formulated with Priscilla Quinones PA-C. I agree with the above. Progress Note: Quality VTE Deep Vein Thrombosis/Pulmonary Embolism Present on Admission: No _ (1) Pancreatitis Qualifiers: Acute pancreatitis complication: Chronicity: acute Pancreatitis type:
[2018-07-04] MEDS: Enoxaparin Inj 30 MG/0.3 ML Syringe SQ SCH (22:43)
[2018-07-05] MEDS: Sodium Chloride 0.45 % Inj 1,000 ML IV.CONT SCH ×2 (00:51→13:46)
[2018-07-05 07:11] LABS: Baso # (Auto) 0.1 th/mm3 (0.0-0.2); Baso % (Auto) 0.5 % (0.0-2.0); Eos % (Auto) 0.1 % (0.0-4.0); Hematocrit 36.4 % (35.0-46.0); Hemoglobin 12.5 gm/dL (11.6-15.3); Lymph # (Auto) 0.7 th/mm3 (1.0-4.8); Lymph % (Auto) 4.9 % (9.0-44.0); Mean Corpuscular HGB Conc 34.3 % (32.0-36.0); Mean Corpuscular Hemoglobin 34.1 pg (27.0-34.0); Mean Corpuscular Volume 99.5 fL (80.0-100.0); Mean Platelet Volume 7.8 fL (7.0-11.0); Mono # (Auto) 1.2 th/mm3 (0.0-0.9); Mono % (Auto) 8.6 % (0.0-8.0); Neut # (Auto) 11.9 th/mm3 (1.8-7.7); Neut % (Auto) 85.9 % (16.0-70.0); Platelet Count 187 th/mm3 (150-450); Red Blood Count 3.66 mil/mm3 (4.00-5.30); Red Cell Distribution Width 12.2 % (11.6-17.2); White Blood Count 13.8 th/mm3 (4.0-11.0)
[2018-07-05 07:37] LABS: Alanine Aminotransferase 15 U/L (10-53); Albumin 2.8 g/dL (3.4-5.0); Alkaline Phosphatase 72 U/L (45-117); Anion Gap 9 meq/L (5-15); Aspartate Aminotransferase 17 U/L (15-37); Blood Urea Nitrogen 8 mg/dL (7-18); Calcium 8.2 mg/dL (8.5-10.1); Carbon Dioxide 24.9 meq/L (21.0-32.0); Chloride 106 meq/L (98-107); Glomerular Filtration Rate Greater Than 89 mL/min (>89); Glucose,Random 82 mg/dL (74-106); Lipase 1327 U/L (73-393); Magnesium 2.2 mg/dL (1.5-2.5); Potassium 3.3 meq/L (3.5-5.1); Sodium 140 meq/L (136-145); Total Protein 6.4 g/dL (6.4-8.2)
--- NOTE | 2018-07-05 18:02 | P.PNIM ---
Subjective Interval history: abdominal pain improved from admission. Physical Exam Vital signs: Last Vital Signs Temp 98.3 F 07/05/18 15:50 Pulse 88 07/05/18 16:27 Resp 16 07/05/18 15:50 BP 140/92 H 07/05/18 15:50 Pulse Ox 96 07/05/18 15:50 Narrative: GENERAL: This is a well-nourished, well-developed patient, in no apparent distress. CARDIOVASCULAR: Regular rate and rhythm RESPIRATORY: Clear to auscultation. Breath sounds equal bilaterally. No wheezes , rales, or rhonchi. GASTROINTESTINAL: soft, nondistended, nontender, normoactive bowel sounds MUSCULOSKELETAL: Extremities without clubbing, cyanosis, or edema. NEURO: Alert & Oriented x4 to person, place, time, situation. 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 She denies any active diarrhea, constipation or fever. Quality is crampy. She states next week she is scheduled to have HIPEC abdominal surgery at the [facility] to remove more of her adenocarcinoma. Reviewed MRI from May [address] chest done 07/01/18 at [facility]...no mention of pancreatitis noted on 07/01/18 CT. She reports that her last dose of chemotx was 02/2018. She denies any other concurrent complaints. Pancreatitis ? etiology. No new meds per pt report. Will keep NPO, provide antiemetics, IVF and pain meds. Abdomen/Pelvis CT 07/03/18 1. Fluid throughout the abdomen including in the cul-de-sac and the upper abdomen. The fluid surrounds portions of the liver, pancreas and spleen. 2. Some debris in the gallbladder likely small stones. 3. No evidence of free air in the abdomen. Small anterior wall abdominal umbilical hernia only containing a small amount of fat Lipase on admission -> 03670 (07/04), 1327 (07/05) total bilirubin 0.5, AST 26. ALT 25, Alk Pos 89 (07/03) - diet advanced to clears - repeat Lipase in AM Dehydration - improved Provided IVF. 07/04 BUN 10, Creatinine 0.47, Estimated GFR > 89 Mucinous adenocarcinoma of appendix Per oncology and [facility]. Hopefully can get her stabilized for surgery planned for 07/07/18. Dr. Philippe called Dr. Holley [phone], discussed case. Dr Holley would like to look at the CT scan and talk with his team. CT scan faxed DVT prophylaxis with SCDs Progress Note: Quality VTE Deep Vein Thrombosis/Pulmonary Embolism Present on Admission: No _ (1) Pancreatitis Qualifiers: Acute pancreatitis complication: Chronicity: acute Pancreatitis type:
[2018-07-05] MEDS: Enoxaparin Inj 30 MG/0.3 ML Syringe SQ SCH (23:12)
[2018-07-06] MEDS: Sodium Chloride 0.45 % Inj 1,000 ML IV.CONT SCH (03:59)
[2018-07-06 08:56] LABS: Baso % (Auto) 0.2 % (0.0-2.0); Eos % (Auto) 0.1 % (0.0-4.0); Hematocrit 35.8 % (35.0-46.0); Hemoglobin 12.3 gm/dL (11.6-15.3); Lymph # (Auto) 0.7 th/mm3 (1.0-4.8); Lymph % (Auto) 4.9 % (9.0-44.0); Mean Corpuscular HGB Conc 34.2 % (32.0-36.0); Mean Corpuscular Volume 99.5 fL (80.0-100.0); Mean Platelet Volume 7.9 fL (7.0-11.0); Mono # (Auto) 1.3 th/mm3 (0.0-0.9); Mono % (Auto) 9.6 % (0.0-8.0); Neut # (Auto) 11.9 th/mm3 (1.8-7.7); Neut % (Auto) 85.2 % (16.0-70.0); Platelet Count 199 th/mm3 (150-450); Red Cell Distribution Width 12.1 % (11.6-17.2); White Blood Count 13.9 th/mm3 (4.0-11.0)
[2018-07-06 09:15] LABS: Alanine Aminotransferase 14 U/L (10-53)
[2018-07-06 09:18] LABS: Alkaline Phosphatase 75 U/L (45-117); Total Protein 6.8 g/dL (6.4-8.2)
[2018-07-06 09:20] LABS: Albumin 2.8 g/dL (3.4-5.0); Anion Gap 12 meq/L (5-15); Aspartate Aminotransferase 25 U/L (15-37); Blood Urea Nitrogen 8 mg/dL (7-18); Calcium 8.2 mg/dL (8.5-10.1); Carbon Dioxide 22.8 meq/L (21.0-32.0); Chloride 105 meq/L (98-107); Glomerular Filtration Rate Greater Than 89 mL/min (>89); Glucose,Random 77 mg/dL (74-106); Lipase 164 U/L (73-393); Magnesium 2.2 mg/dL (1.5-2.5); Sodium 140 meq/L (136-145)
[2018-07-06 09:22] LABS: Potassium 3.5 meq/L (3.5-5.1)
--- NOTE | 2018-07-06 10:46 | P.PNIM ---
Subjective Interval history: Abdominal pain resolved. Pt tolerating clear liquid diet. Telemetry shows pt has now developed sinus tachycardia. Pt denies chest pain or palpitations. Physical Exam Vital signs: Last Vital Signs Temp 97.6 F 07/06/18 08:00 Pulse 94 H 07/06/18 08:00 Resp 18 07/06/18 08:00 BP 140/81 07/06/18 08:00 Pulse Ox 97 07/06/18 08:00 Narrative: GENERAL: This is a well-nourished, well-developed patient, in no apparent distress. CARDIOVASCULAR: Regular rate and rhythm RESPIRATORY: Clear to auscultation. Breath sounds equal bilaterally. No wheezes , rales, or rhonchi. GASTROINTESTINAL: soft, nondistended, nontender, normoactive bowel sounds MUSCULOSKELETAL: Extremities without clubbing, cyanosis, or edema. NEURO: Alert & Oriented x4 to person, place, time, situation. 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 She denies any active diarrhea, constipation or fever. Quality is crampy. She states next week she is scheduled to have HIPEC abdominal surgery at the [facility] to remove more of her adenocarcinoma. Reviewed MRI from May [address] chest done 07/01/18 at [facility]...no mention of pancreatitis noted on 07/01/18 CT. She reports that her last dose of chemotx was 02/2018. She denies any other concurrent complaints. Pancreatitis ? etiology. No new meds per pt report. Abdomen/Pelvis CT 07/03/18 1. Fluid throughout the abdomen including in the cul-de-sac and the upper abdomen. The fluid surrounds portions of the liver, pancreas and spleen. 2. Some debris in the gallbladder likely small stones. 3. No evidence of free air in the abdomen. Small anterior wall abdominal umbilical hernia only containing a small amount of fat Lipase on admission -> 09242 (07/04), 1327 (07/05), 164 (07/06) total bilirubin 0.5, AST 26. ALT 25, Alk Pos 89 (07/03) - Pt treated with IVFs, bowel rest, and prn narcotics - clinical symptoms have resolved & diet has been gradually advanced - Pt tolerating clears --> advance to heart healthy - repeat lipase, CBC, BMP, Mag in AM - minimal elevation in WBC likely d/t pancreatitis. No fever - supportive care - DVT prophylaxis atrial Fibrillation with RVR - 12 lead: Atrial flutter - bolus 500ml NS - Pt given Cardizem 10mg IV, hr improved but still running in the 120s with occasional spikes higher - start cardizem gtt Dehydration - improved Provided IVF. 07/04 BUN 10, Creatinine 0.47, Estimated GFR > 89 Mucinous adenocarcinoma of appendix Case d/w pt's Surgeon, Dr. Holley . - CT A/P and labs faxed to Dr. Holley. Pt's surgery has now been rescheduled for late July Progress Note: Quality VTE Deep Vein Thrombosis/Pulmonary Embolism Present on Admission: No _ (1) Pancreatitis Qualifiers: Acute pancreatitis complication: Chronicity: acute Pancreatitis type:
[2018-07-06] MEDS ORDERED: Sodium Chlor 0.9% Inj 500 ML IV.SIG STA (10:55)
[2018-07-06] MEDS ORDERED: dilTIAZem Inj 125 MG in Sodium Chlor 0.9% Inj 100 ML IV.CONT SCH (16:00)
[2018-07-06] MEDS: Enoxaparin Inj 30 MG/0.3 ML Syringe SQ SCH (22:09)
--- NOTE | 2018-07-07 02:08 | ECG ---
Date Performed: 07/06/2018 Time Performed: 10:41:12 PTAGE: 73 years EKG: Atrial flutter with uncontrolled ventricular response with 2:1 A-V block. Extensive ST-T ch anges may be due to myocardial ischemia Abnormal ECG PREVIOUS TRACING : 04/21/2018 17.57 Compared to previous tracing, now in AFlutter with ST/T wa ve changes DOCTOR: Louie Flores Interpretating Date/Time 07/07/2018 02:07:53
[2018-07-07 07:39] LABS: Baso % (Auto) 0.4 % (0.0-2.0); Eos # (Auto) 0.1 th/mm3 (0.0-0.4); Eos % (Auto) 0.8 % (0.0-4.0); Hemoglobin 11.6 gm/dL (11.6-15.3); Lymph # (Auto) 0.7 th/mm3 (1.0-4.8); Lymph % (Auto) 5.7 % (9.0-44.0); Mean Corpuscular HGB Conc 34.2 % (32.0-36.0); Mean Corpuscular Hemoglobin 33.6 pg (27.0-34.0); Mean Corpuscular Volume 98.5 fL (80.0-100.0); Mean Platelet Volume 7.8 fL (7.0-11.0); Mono # (Auto) 1.2 th/mm3 (0.0-0.9); Mono % (Auto) 10.2 % (0.0-8.0); Neut # (Auto) 9.5 th/mm3 (1.8-7.7); Neut % (Auto) 82.9 % (16.0-70.0); Platelet Count 198 th/mm3 (150-450); Red Blood Count 3.46 mil/mm3 (4.00-5.30); White Blood Count 11.4 th/mm3 (4.0-11.0)
[2018-07-07 08:07] LABS: Alanine Aminotransferase 45 U/L (10-53); Albumin 2.5 g/dL (3.4-5.0); Alkaline Phosphatase 161 U/L (45-117); Anion Gap 8 meq/L (5-15); Aspartate Aminotransferase 49 U/L (15-37); Blood Urea Nitrogen 7 mg/dL (7-18); Carbon Dioxide 25.9 meq/L (21.0-32.0); Chloride 107 meq/L (98-107); Glomerular Filtration Rate Greater Than 89 mL/min (>89); Glucose,Random 108 mg/dL (74-106); Lipase 150 U/L (73-393); Potassium 3.1 meq/L (3.5-5.1); Sodium 141 meq/L (136-145); Total Protein 6.3 g/dL (6.4-8.2)
--- NOTE | 2018-07-07 08:18 | P.PNIM ---
Subjective Interval history: no abdomen pain. romeo food. on cardizem gtt Physical Exam Vital signs: Last Vital Signs Temp 98.3 F 07/07/18 04:09 Pulse 102 H 07/07/18 07:57 Resp 16 07/07/18 04:09 BP 103/64 07/07/18 07:15 Pulse Ox 95 07/07/18 04:09 Narrative: heart reg. 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 She denies any active diarrhea, constipation or fever. Quality is crampy. She states next week she is scheduled to have HIPEC abdominal surgery at the [facility] to remove more of her adenocarcinoma. Reviewed MRI from May [address] chest done 07/01/18 at [facility]...no mention of pancreatitis noted on 07/01/18 CT. She reports that her last dose of chemotx was 02/2018. She denies any other concurrent complaints. Pancreatitis ? etiology. passed stone./sludge No new meds per pt report. Abdomen/Pelvis CT 07/03/18 1. Fluid throughout the abdomen including in the cul-de-sac and the upper abdomen. The fluid surrounds portions of the liver, pancreas and spleen. 2. Some debris in the gallbladder likely small stones. 3. No evidence of free air in the abdomen. Small anterior wall abdominal umbilical hernia only containing a small amount of fat Lipase on admission 38760 -> 92553 (07/04), 1327 (07/05), 164 (07/06) total bilirubin 0.5, AST 26. ALT 25, Alk Pos 89 (07/03) - Pt treated with IVFs, bowel rest, and prn narcotics - clinical symptoms have resolved & diet has been gradually advanced - Pt toleratingheart healthy - minimal elevation in WBC likely d/t pancreatitis. No fever- supportive care - DVT prophylaxis atrial Fibrillation with RVR - 12 lead: Atrial flutter -low dose cardizem gtt -pt has had hypotension in past with cardizem and lopressor po she is reluctant to start any of these meds we discussed digoxin. she has used it in past. she agreed start dig and wean off cardizem. 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 Dehydration - improved Provided IVF. 07/04 BUN 10, Creatinine 0.47, Estimated GFR > 89 Mucinous adenocarcinoma of appendix Case d/w pt's Surgeon, Dr. Holley . - CT A/P and labs faxed to Dr. Holley. Pt's surgery has now been rescheduled for late July Progress Note: Quality VTE Deep Vein Thrombosis/Pulmonary Embolism Present on Admission: No _ (1) Pancreatitis Qualifiers: Acute pancreatitis complication: Chronicity: acute Pancreatitis type:
[2018-07-07] MEDS ORDERED: Potassium Chloride 10 MEQ ER Capsule PO ONE ×2 (08:30→12:00)
[2018-07-07] MEDS ORDERED: Digoxin 250 MCG Tablet PO ONE (08:30)
[2018-07-07] MEDS: Digoxin 250 MCG Tablet PO SCH ×2 (10:25→12:45)
[2018-07-07 16:53] LABS: Anion Gap 8 meq/L (5-15); Blood Urea Nitrogen 7 mg/dL (7-18); Calcium 8.4 mg/dL (8.5-10.1); Carbon Dioxide 25.3 meq/L (21.0-32.0); Chloride 105 meq/L (98-107); Glomerular Filtration Rate Greater Than 89 mL/min (>89); Glucose,Random 101 mg/dL (74-106); Potassium 3.7 meq/L (3.5-5.1); Sodium 138 meq/L (136-145)
== END 2018-07-07 18:31 | disposition home or self-care (01) ==
LOC: NEPC 17:24 → NEDA 21:54 → INTOOBSV 21:54 → N06 07-04 01:50 → HCIN 07-05 05:56
PROVIDERS: ADMIT Hospitalist; ATTEND Hospitalist
DX: I48.0 Paroxysmal atrial fibrillation; Z90.710 Acquired absence of both cervix and uterus; I48.91 Unspecified atrial fibrillation; E86.0 Dehydration; Z90.49 Acquired absence of other specified parts of digestive tract; C18.1 Malignant neoplasm of appendix; Z85.09 Personal history of malignant neoplasm of other digestive organs; K85.90 Acute pancreatitis without necrosis or infection, unspecified; Z82.49 Family history of ischemic heart disease and other diseases of the circulatory system; Z80.3 Family history of malignant neoplasm of breast; E78.5 Hyperlipidemia, unspecified; I48.92 Unspecified atrial flutter; Z80.7 Family history of other malignant neoplasms of lymphoid, hematopoietic and related tissues